=== PATIENT | female | born 1950 | race Caucasian/White ===

== ENCOUNTER 2018-06-05 12:51 | Inpatient (IN) | payer MEDICARE ==
[2018-06-04 19:00] VITALS: BP 162/88
[~2018-06-05] VITALS: Ht 152.4 cm; Wt 106.3 kg
[2018-06-05] VITALS (8 sets, daily range): BP systolic 131–180; BP diastolic 70–90
[2018-06-05] MEDS ORDERED: IV NORMAL SALINE 1000ML BAG 1,000 ML IV SCH (13:13)
--- NOTE | 2018-06-05 13:28 | PHYS DOC ---
Adult General Chief Complaint Chief Complaint: ALCOHOL INTOXICATION HPI HPI 68-year-old female presents via EMS from home after PD was sent to her home on a welfare check. Patient tells me normally she is able to ambulate with a walker but she has at home but she has become so weak she is unable to ambulate. She presents with stool on her hands and feet. She states has been on a one-month alcohol camarena after losing several family members. She reports history of alcoholism. She states has never had any seizures when coming off of alcohol. She is very tearful and states she has just had a lot going on and she has been drinking "way too much vodka". She denies any pain. She states having no chest pain or abdominal pain. She normally gets her medical care at [facility], the ambulance was unable to take her to that facility today. She is accompanied by her ex- whom lives with her at the house. Review of Systems Review of Systems Constitutional: Denies fever or chills [] Eyes: Denies change in visual acuity, redness, or eye pain [] HENT: Denies nasal congestion or sore throat [] Respiratory: Denies cough or shortness of breath [] Cardiovascular: No additional information not addressed in HPI [] GI: Denies abdominal pain, nausea, vomiting, bloody stools or diarrhea [] : Denies dysuria or hematuria [] Musculoskeletal: Denies back pain or joint pain [] Integument: Pain under her right breasT from rash Neurologic: Denies headache, focal weakness or sensory changes [] All other systems were reviewed and found to be within normal limits, except as documented in this note. Current Medications Current Medications Current Medications Medications (Trade) Dose Ordered Sig/Frannie Start Time Stop Time Status Last Admin Dose Admin Ceftriaxone Sodium 50 ml @ 100 mls/hr 1X ONCE 06/05/18 14:45 06/05/18 15:14 DC 06/05/18 14:49 100 MLS/HR Lorazepam (Ativan) 1 mg 1X ONCE 06/05/18 13:15 06/05/18 13:22 DC 06/05/18 13:24 1 MG Magnesium Sulfate 50 ml @ 25 mls/hr 1X ONCE 06/05/18 14:45 06/05/18 16:44 06/05/18 15:37 25 MLS/HR Ondansetron HCl (Zofran) 4 mg 1X ONCE 06/05/18 15:45 06/05/18 15:46 DC 06/05/18 15:40 4 MG Potassium Chloride (Klor-Con) 40 meq 1X ONCE 06/05/18 14:00 06/05/18 14:02 DC 06/05/18 14:49 40 MEQ Sodium Chloride 1,000 ml @ 1,000 mls/hr 1X ONCE 06/05/18 15:15 06/05/18 16:14 06/05/18 15:39 1,000 MLS/HR Allergies Allergies Allergies Coded Allergies Type Severity Reaction Last Updated Verified No Known Drug Allergies 06/05/18 No Physical Exam Physical Exam Constitutional: Well developed, well nourished, non-toxic appearance. [] HENT: Normocephalic, atraumatic, bilateral external ears normal, ORAL MUCOUS MEMBRANES DRY, no oral exudates, nose normal. [] Eyes: PERRLA, EOMI, conjunctiva normal, no discharge. [] Neck: Normal range of motion, no tenderness, supple, no stridor. [] Cardiovascular:Heart rate regular rhythm, TACHYCARDIA, NO MURMUR [] Lungs & Thorax: Bilateral breath sounds clear to auscultation [] Abdomen: Bowel sounds normal, soft, no tenderness, no masses. [] Skin: SKIN UNDER RT BREAST ERYTHEMATOUS, MOIST, CONSISTENT C YEAST (PT HAS BROWN SKIN LESION ON UNDERSIDE OF RT BREAST SHE STATES IS A MOLE THAT HAS BEEN CHECKED BY DERMATOLOGY AND NOT CANCEROUS). SKIN SUPRAPUBIC REGION IN PANUS IS ERYTHEMATOUS AND MOIST, FOUL SMELLING[] [] Extremities: No tenderness, no cyanosis, no clubbing, ROM intact, +2 PITTING EDEMA BILAT LE'S [] Neurologic: Alert and oriented X 3, normal motor function, normal sensory function, no focal deficits noted. [] Psychologic: TEARFUL, judgement normal, mood normal. [] Current Patient Data Vital Signs Vital Signs Date Time Temp Pulse Resp B/P (MAP) Pulse Ox O2 Delivery O2 Flow Rate FiO2 06/05/18 12:52 97.7 135 28 139/91 (107) 97 Room Air 97.7 Lab Values Laboratory Tests Test 06/05/18 13:03 06/05/18 13:45 White Blood Count 9.2 x10^3/uL (4.0-11.0) Red Blood Count 4.67 x10^6/uL (3.50-5.40) Hemoglobin 14.4 g/dL (12.0-15.5) Hematocrit 41.9 % (36.0-47.0) Mean Corpuscular Volume 90 fL (79-100) Mean Corpuscular Hemoglobin 31 pg (25-35) Mean Corpuscular Hemoglobin Concent 34 g/dL (31-37) Red Cell Distribution Width 17.2 % (11.5-14.5) H Platelet Count 223 x10^3/uL (140-400) Neutrophils (%) (Auto) 45 % (31-73) Lymphocytes (%) (Auto) 47 % (24-48) Monocytes (%) (Auto) 8 % (0-9) Eosinophils (%) (Auto) 1 % (0-3) Basophils (%) (Auto) 1 % (0-3) Neutrophils # (Auto) 4.1 x10^3uL (1.8-7.7) Lymphocytes # (Auto) 4.3 x10^3/uL (1.0-4.8) Monocytes # (Auto) 0.7 x10^3/uL (0.0-1.1) Eosinophils # (Auto) 0.1 x10^3/uL (0.0-0.7) Basophils # (Auto) 0.1 x10^3/uL (0.0-0.2) Prothrombin Time 12.9 SEC (11.7-14.0) Prothrombin Time INR 1.0 (0.8-1.1) Sodium Level 142 mmol/L (136-145) Potassium Level 3.0 mmol/L (3.5-5.1) L Chloride Level 102 mmol/L (98-107) Carbon Dioxide Level 21 mmol/L (21-32) Anion Gap 19 (6-14) H Blood Urea Nitrogen 6 mg/dL (7-20) L Creatinine 0.7 mg/dL (0.6-1.0) Estimated GFR (Cockcroft-Gault) 82.7 BUN/Creatinine Ratio 9 (6-20) Glucose Level 156 mg/dL (70-99) H Lactic Acid Level 5.9 mmol/L (0.4-2.0) *H Calcium Level 8.5 mg/dL (8.5-10.1) Magnesium Level 1.5 mg/dL (1.8-2.4) L Total Bilirubin 1.0 mg/dL (0.2-1.0) Aspartate Amino Transferase (AST) 102 U/L (15-37) H Alanine Aminotransferase (ALT) 85 U/L (14-59) H Alkaline Phosphatase 133 U/L (46-116) H Creatine Kinase 370 U/L (26-192) H Creatine Kinase MB (Mass) 7.4 ng/mL (0.0-3.6) H Creatine Kinase MB Relative Index 2.0 % (0-4) Troponin I Quantitative < 0.017 ng/mL (0.000-0.055) QD-Iou-O-Type Natriuretic Peptide 846 pg/mL (0-124) H Total Protein 8.3 g/dL (6.4-8.2) H Albumin 3.4 g/dL (3.4-5.0) Albumin/Globulin Ratio 0.7 (1.0-1.7) L Lipase 288 U/L (73-393) Ethyl Alcohol Level 230 mg/dL (0-10) H Urine Collection Type U cath Urine Color Dk yellow Urine Clarity Cloudy Urine pH 5.5 Urine Specific [place] 1.020 Urine Protein >=300 mg/dL (NEG-TRACE) Urine Glucose (UA) Negative mg/dL (NEG) Urine Ketones (Stick) Trace mg/dL (NEG) Urine Blood Moderate (NEG) Urine Nitrite Positive (NEG) Urine Bilirubin Small (NEG) Urine Urobilinogen Dipstick 1.0 mg/dL (0.2 mg/dL) Urine Leukocyte Esterase Small (NEG) Urine RBC Rare /HPF (0-2) Urine WBC 1-4 /HPF (0-4) Urine Squamous Epithelial Cells Few /LPF Urine Transitional Epithelial Cells Occ /LPF Urine Bacteria Many /HPF (0-FEW) Urine Hyaline Casts Few /HPF Urine Mucus Mod /LPF Laboratory Tests 06/05/18 13:03 Laboratory Tests 06/05/18 13:03 EKG EKG [06/05/18 rate 117, irregular rhythm, no P-wave, leftward axis right bundle branch block and RVH with repolarization abnormality. SIGNED BY DR BARRERA] Radiology/Procedures Radiology/Procedures [PROCEDURE: PORTABLE CHEST 1V PORTABLE CHEST 1V History: Tachycardia, weakness Comparison: None Findings: Single view of the chest is submitted. Pericardial cardiac silhouette is within normal limits in size. There is no pneumothorax or significant pleural fluid. There is a somewhat round opacity of the mid to inferior right hemithorax and fullness of the right hilum. There is atherosclerotic calcification near aortic arch. There are some clips of the left perihilar region. There is no lobar consolidation. Impression: 1. There is somewhat round opacity of the mid to inferior right hemithorax for which nonemergent CT evaluation should be considered, no previous exams to evaluate for change. There is also some fullness of the right hilum. Electronically signed by: Shubham Gayle MD (06/05/2018 1:40 PM) [id number] ] Course & Med Decision Making Course & Med Decision Making Pertinent Labs and Imaging studies reviewed. (See chart for details) [Patient continues to be tachycardic, she has been given 2 L of normal saline, I was notified by patient's RN that her O2 sats dropped down into the 80s, patient was placed on 2 L nasal cannula, subsequent O2 96% on 2 L. Hypomagnesemia was treated with 2 g of magnesium, hypokalemia was treated with 40 mEq of KCl. Patient is alert and oriented 3, urine is positive for infection , decision to admit patient for UTI, sepsis. Blood cultures are pending. Patient was given IV Rocephin. I discussed patient's case with Dr. CAMARA who accepts admit.] Dragon Disclaimer Dragon Disclaimer This electronic medical record was generated, in whole or in part, using a voice recognition dictation system. Departure Departure Impression: Primary Impression: UTI (urinary tract infection) Additional Impressions: Sepsis Hypomagnesemia Hypokalemia Hypoxia Disposition: 09 ADMITTED INPATIENT Admitting Physician: Alisson Camara Condition: STABLE Referrals: NO PCP (PCP) Problem Qualifiers MOON MANZANO GEAR CUTTING MACHINE SET UP OPERATOR Jun 05, 2018 13:28
[2018-06-05 13:36] LABS: BASO # 0.1 x10^3/uL (0.0-0.2); BASO % 1 % (0-3); EOS # 0.1 x10^3/uL (0.0-0.7); EOS % 1 % (0-3); HEMATOCRIT 41.9 % (36.0-47.0); HEMOGLOBIN 14.4 g/dL (12.0-15.5); LYMPH # 4.3 x10^3/uL (1.0-4.8); LYMPH % 47 % (24-48); MEAN CORPUSCULAR HEMOGLOBIN 31 pg (25-35); MEAN CORPUSCULAR HGB CONC 34 g/dL (31-37); MEAN CORPUSCULAR VOLUME 90 fL (79-100); MONO # 0.7 x10^3/uL (0.0-1.1); MONO % 8 % (0-9); NEUT # 4.1 x10^3uL (1.8-7.7); NEUT % 45 % (31-73); PLATELET COUNT 223 x10^3/uL (140-400); PROTHROMBIN TIME PATIENT 12.9 SEC (11.7-14.0); RED BLOOD COUNT 4.67 x10^6/uL (3.50-5.40); RED CELL DISTRIBUTION WIDTH 17.2 % (11.5-14.5); WHITE BLOOD COUNT 9.2 x10^3/uL (4.0-11.0)
[2018-06-05 13:43] LABS: ALBUMIN 3.4 g/dL (3.4-5.0); ALBUMIN/GLOBULIN RATIO 0.7 (1.0-1.7); CALCIUM 8.5 mg/dL (8.5-10.1); CREATININE 0.7 mg/dL (0.6-1.0); GFR 82.7; MAGNESIUM 1.5 mg/dL (1.8-2.4); TOTAL PROTEIN 8.3 g/dL (6.4-8.2)
--- NOTE | 2018-06-05 13:44 | RAD ---
PORTABLE CHEST 1V History: Tachycardia, weakness Comparison: None Findings: Single view of the chest is submitted. Pericardial cardiac silhouette is within normal limits in size. There is no pneumothorax or significant pleural fluid. There is a somewhat round opacity of the mid to inferior right hemithorax and fullness of the right hilum. There is atherosclerotic calcification near aortic arch. There are some clips of the left perihilar region. There is no lobar consolidation. Impression: 1. There is somewhat round opacity of the mid to inferior right hemithorax for which nonemergent CT evaluation should be considered, no previous exams to evaluate for change. There is also some fullness of the right hilum. Electronically signed by: Shubham Gayle MD (06/05/2018 1:40 PM) [id number]
[2018-06-05 13:56] LABS: BILIRUBIN,URINE SMALL (NEG); CLARITY,URINE CLOUDY; NITRITE,URINE POSITIVE (NEG); PH,URINE 5.5; PROTEIN,URINE >=300 mg/dL (NEG-TRACE)
[2018-06-05] MEDS ORDERED: POTASSIUM CHLORIDE 20 MEQ TABLET.ER. PO ONE ×2 (14:00→17:15)
[2018-06-05 14:01] LABS: COLOR,URINE DK YELLOW
[2018-06-05 14:04] LABS: BACTERIA,URINE MANY /HPF (0-FEW); HYALINE CASTS, URINE FEW /HPF; RBC,URINE RARE /HPF (0-2); SQUAMOUS EPITHELIAL CELL,UR FEW /LPF
[2018-06-05] MEDS ORDERED: MAGNESIUM SULFATE 2GM 50 ML IV ONE (14:45)
[2018-06-05] MEDS ORDERED: IV NORMAL SALINE 1000ML BAG 1,000 ML IV ONE (15:15)
[2018-06-05] MEDS ORDERED: ONDANSETRON PF 4 MG/2 ML VIAL. ONE (15:28)
[2018-06-05] MEDS ORDERED: ONDANSETRON PF 4 MG/2 ML VIAL. IV ONE (15:45)
--- NOTE | 2018-06-05 15:45 | EKG ---
[facility] [address] [place] [address] Test Date: 2018-06-05 Test Time: 12:57:34 Pat Name: ARNOLD SORENSON Department: Room: Gender: F Flight Dispatcher: ADRIENNE : [id number] Requested By: MOON MANZANO Order Number: [id number] Reading MD: Kayode Huitron Measurements Intervals [place] Rate: 117 P: IA: QRS: -14 QRSD: 128 T: -18 QT: 348 QTc: 490 Interpretive Statements ATRIAL FIBRILLATION LEFTWARD AXIS RIGHT BUNDLE BRANCH BLOCK QRS(T) CONTOUR ABNORMALITY CONSIDER ANTEROLATERAL MYOCARDIAL DAMAGE ABNORMAL ECG RI6.01 No previous ECG available for comparison Electronically Signed On 06-11-2018 10:13:15 CDT by Kayode Huitron
[2018-06-05] MEDS ORDERED: MULTIVIT INFUSN,ADULT 4,VIT K 10 ML, THIAMINE INJ 100 MG, FOLIC ACID INJ 1 MG in IV NOR... IV ONE (16:15)
--- NOTE | 2018-06-05 17:15 | PDOC1 ---
History and Physical Date of Admission Date of Admission DATE: 06/05/18 TIME: 17:04 Identification/Chief Complaint Chief Complaint cant walk Source Source: Chart review, Patient History of Present Illness History of Present Illness Ms. Cohen, 68-year-old female admitted for sepsis, confusion EMS was called today, started wtih a welfare check she could not walk, has been drinking EtOH daily for 30 days, and cannot get up, she reports she has been very anxious, and cannot stop drinking. Suddenly more weak today though, leg weakness, but she is also confused she lives with her Ex-, primary care is at [facility] Past Medical History Psych: Anxiety, Addictions Family History Family History: No Significant Social History ALCOHOL: heavy Current Problem List Problem List Problems Medical Problems: (1) Hypokalemia Status: Acute (2) Hypomagnesemia Status: Acute (3) Hypoxia Status: Acute (4) Sepsis Status: Acute (5) UTI (urinary tract infection) Status: Acute Current Medications Current Medications Current Medications Lorazepam (Ativan) 1 mg 1X ONCE IV Last administered on 06/05/18at 13:24; Start 06/05/18 at 13:15; Stop 06/05/18 at 13:22; Status DC Sodium Chloride 1,000 ml @ 1,000 mls/hr Q1H IV Last administered on 06/05/18at 13:23; Start 06/05/18 at 13:13; Stop 06/05/18 at 14:12; Status DC Potassium Chloride (Klor-Con) 40 meq 1X ONCE PO Last administered on at 14:49; Start 06/05/18 at 14:00; Stop 06/05/18 at 14:02; Status DC Ceftriaxone Sodium 50 ml @ 100 mls/hr 1X ONCE IV Last administered on at 14:49; Start 06/05/18 at 14:45; Stop 06/05/18 at 15:14; Status DC Magnesium Sulfate 50 ml @ 25 mls/hr 1X ONCE IV Last administered on 06/05/18at 15:37; Start 06/05/18 at 14:45; Stop 06/05/18 at 16:44; Status DC Sodium Chloride 1,000 ml @ 1,000 mls/hr 1X ONCE IV Last administered on at 15:39; Start 06/05/18 at 15:15; Stop 06/05/18 at 16:14; Status DC Ondansetron HCl (Zofran) 4 mg STK-MED ONCE .ROUTE ; Start 06/05/18 at 15:28; Stop 06/05/18 at 15:29; Status DC Ondansetron HCl (Zofran) 4 mg 1X ONCE IV Last administered on 06/05/18at 15:40 ; Start 06/05/18 at 15:45; Stop 06/05/18 at 15:46; Status DC Multivitamins 10 ml/Thiamine HCl 100 mg/Folic Acid 1 mg/Sodium Chloride 1,011.2 ml @ 1,000.088 mls/hr 1X ONCE IV Last administered on 06/05/18at 16:17; Start 06/05/18 at 16:15; Stop 06/05/18 at 17:15 Allergies Allergies: Coded Allergies: No Known Drug Allergies (Unverified , 06/05/18) ROS General: YES: Chills, Fatigue, Malaise, Appetite; No: Night Sweats, Other PSYCHOLOGICAL ROS: YES: Anxiety, Sleep disturbances Eyes: No Blurry vision, No Decreased vision, No Double vision, No Dry eyes, No Excessive tearing, No Eye Pain, No Itchy Eyes, No Loss of vision, No Photophobia , No Scotomata, No Uses contacts, No Uses glasses, No Other HEENT: YES: Heacaches; No: Visual Changes, Hearing change, Nasal congestion, Nasal discharge, Oral lesions, Sinus pain, Sore Throat, Epistaxis, Sneezing, Snoring, Tinnitus, Vertigo, Vocal changes, Other Respiratory: No: Cough, Hemoptysis, Orthopnea, Pleuritic Pain, Shortness of breath, SOB with excertion, Sputum Changes, Stridor, Tachypnea, Wheezing, Other Cardiovascular: No Chest Pain, No Palpitations, No Orthopnea, No Paroxysmal Noc. Dyspnea, No Edema, No Lt Headedness, No Other Gastrointestinal: Yes Nausea, Yes Vomiting, Yes Abdominal Pain Genitourinary: No Dysuria, No Frequency, No Incontinence, No Hematuria, No Retention, No Discharge, No Urgency, No Pain, No Flank Pain, No Other, No , No , No , No , No , No , No Musculoskeletal: Yes Joint Pain Neurological: No Behavorial Changes, No Bowel/Bladder ControlChng, No Confusion , No Dizziness, No Gait Disturbance, No Headaches, No Impaired Coord/balance, No Memory Loss, No Numbness/Tingling, No Seizures, No Speech Problems, No Tremors, No Visual Changes, No Weakness, No Other Skin: Yes Dry Skin; No Eczema, No Hair Changes, No Lumps, No Mole Changes, No Mottling, No Nail Changes, No Pruritus, No Rash, No Skin Lesion Changes, No Other, No Acne Physical Exam General: Alert, Cooperative, mild distress HEENT: Atraumatic Lungs: Clear to auscultation Heart: S1S2 Abdomen: Normal bowel sounds, Soft Extremities: No clubbing, No cyanosis, No edema, Normal pulses Neuro: Normal speech, Normal tone, Sensation intact Psych/Mental Status: Mood NL Vitals Vitals Vital Signs Date Time Temp Pulse Resp B/P (MAP) Pulse Ox O2 Delivery O2 Flow Rate FiO2 06/05/18 15:52 126 28 123/83 (96) 94 Nasal Cannula 2.0 06/05/18 12:52 97.7 97.7 Labs Labs Laboratory Tests Test 06/05/18 13:03 06/05/18 13:45 White Blood Count 9.2 x10^3/uL (4.0-11.0) Red Blood Count 4.67 x10^6/uL (3.50-5.40) Hemoglobin 14.4 g/dL (12.0-15.5) Hematocrit 41.9 % (36.0-47.0) Mean Corpuscular Volume 90 fL (79-100) Mean Corpuscular Hemoglobin 31 pg (25-35) Mean Corpuscular Hemoglobin Concent 34 g/dL (31-37) Red Cell Distribution Width 17.2 % (11.5-14.5) Platelet Count 223 x10^3/uL (140-400) Neutrophils (%) (Auto) 45 % (31-73) Lymphocytes (%) (Auto) 47 % (24-48) Monocytes (%) (Auto) 8 % (0-9) Eosinophils (%) (Auto) 1 % (0-3) Basophils (%) (Auto) 1 % (0-3) Neutrophils # (Auto) 4.1 x10^3uL (1.8-7.7) Lymphocytes # (Auto) 4.3 x10^3/uL (1.0-4.8) Monocytes # (Auto) 0.7 x10^3/uL (0.0-1.1) Eosinophils # (Auto) 0.1 x10^3/uL (0.0-0.7) Basophils # (Auto) 0.1 x10^3/uL (0.0-0.2) Prothrombin Time 12.9 SEC (11.7-14.0) Prothromb Time International Ratio 1.0 (0.8-1.1) Sodium Level 142 mmol/L (136-145) Potassium Level 3.0 mmol/L (3.5-5.1) Chloride Level 102 mmol/L (98-107) Carbon Dioxide Level 21 mmol/L (21-32) Anion Gap 19 (6-14) Blood Urea Nitrogen 6 mg/dL (7-20) Creatinine 0.7 mg/dL (0.6-1.0) Estimated GFR (Cockcroft-Gault) 82.7 BUN/Creatinine Ratio 9 (6-20) Glucose Level 156 mg/dL (70-99) Lactic Acid Level 5.9 mmol/L (0.4-2.0) Calcium Level 8.5 mg/dL (8.5-10.1) Magnesium Level 1.5 mg/dL (1.8-2.4) Total Bilirubin 1.0 mg/dL (0.2-1.0) Aspartate Amino Transf (AST/SGOT) 102 U/L (15-37) Alanine Aminotransferase (ALT/SGPT) 85 U/L (14-59) Alkaline Phosphatase 133 U/L (46-116) Creatine Kinase 370 U/L (26-192) Creatine Kinase MB (Mass) 7.4 ng/mL (0.0-3.6) Creatine Kinase MB Relative Index 2.0 % (0-4) Troponin I Quantitative < 0.017 ng/mL (0.000-0.055) XF-Rfm-Z-Type Natriuretic Peptide 846 pg/mL (0-124) Total Protein 8.3 g/dL (6.4-8.2) Albumin 3.4 g/dL (3.4-5.0) Albumin/Globulin Ratio 0.7 (1.0-1.7) Lipase 288 U/L (73-393) Ethyl Alcohol Level 230 mg/dL (0-10) Urine Collection Type U cath Urine Color Dk yellow Urine Clarity Cloudy Urine pH 5.5 Urine Specific [place] 1.020 Urine Protein >=300 mg/dL (NEG-TRACE) Urine Glucose (UA) Negative mg/dL (NEG) Urine Ketones (Stick) Trace mg/dL (NEG) Urine Blood Moderate (NEG) Urine Nitrite Positive (NEG) Urine Bilirubin Small (NEG) Urine Urobilinogen Dipstick 1.0 mg/dL (0.2 mg/dL) Urine Leukocyte Esterase Small (NEG) Urine RBC Rare /HPF (0-2) Urine WBC 1-4 /HPF (0-4) Urine Squamous Epithelial Cells Few /LPF Urine Transitional Epithelial Cells Occ /LPF Urine Bacteria Many /HPF (0-FEW) Urine Hyaline Casts Few /HPF Urine Mucus Mod /LPF Laboratory Tests Test 06/05/18 13:03 06/05/18 13:45 White Blood Count 9.2 x10^3/uL (4.0-11.0) Red Blood Count 4.67 x10^6/uL (3.50-5.40) Hemoglobin 14.4 g/dL (12.0-15.5) Hematocrit 41.9 % (36.0-47.0) Mean Corpuscular Volume 90 fL (79-100) Mean Corpuscular Hemoglobin 31 pg (25-35) Mean Corpuscular Hemoglobin Concent 34 g/dL (31-37) Red Cell Distribution Width 17.2 % (11.5-14.5) Platelet Count 223 x10^3/uL (140-400) Neutrophils (%) (Auto) 45 % (31-73) Lymphocytes (%) (Auto) 47 % (24-48) Monocytes (%) (Auto) 8 % (0-9) Eosinophils (%) (Auto) 1 % (0-3) Basophils (%) (Auto) 1 % (0-3) Neutrophils # (Auto) 4.1 x10^3uL (1.8-7.7) Lymphocytes # (Auto) 4.3 x10^3/uL (1.0-4.8) Monocytes # (Auto) 0.7 x10^3/uL (0.0-1.1) Eosinophils # (Auto) 0.1 x10^3/uL (0.0-0.7) Basophils # (Auto) 0.1 x10^3/uL (0.0-0.2) Prothrombin Time 12.9 SEC (11.7-14.0) Prothromb Time International Ratio 1.0 (0.8-1.1) Sodium Level 142 mmol/L (136-145) Potassium Level 3.0 mmol/L (3.5-5.1) Chloride Level 102 mmol/L (98-107) Carbon Dioxide Level 21 mmol/L (21-32) Anion Gap 19 (6-14) Blood Urea Nitrogen 6 mg/dL (7-20) Creatinine 0.7 mg/dL (0.6-1.0) Estimated GFR (Cockcroft-Gault) 82.7 BUN/Creatinine Ratio 9 (6-20) Glucose Level 156 mg/dL (70-99) Lactic Acid Level 5.9 mmol/L (0.4-2.0) Calcium Level 8.5 mg/dL (8.5-10.1) Magnesium Level 1.5 mg/dL (1.8-2.4) Total Bilirubin 1.0 mg/dL (0.2-1.0) Aspartate Amino Transf (AST/SGOT) 102 U/L (15-37) Alanine Aminotransferase (ALT/SGPT) 85 U/L (14-59) Alkaline Phosphatase 133 U/L (46-116) Creatine Kinase 370 U/L (26-192) Creatine Kinase MB (Mass) 7.4 ng/mL (0.0-3.6) Creatine Kinase MB Relative Index 2.0 % (0-4) Troponin I Quantitative < 0.017 ng/mL (0.000-0.055) ZO-Wtg-X-Type Natriuretic Peptide 846 pg/mL (0-124) Total Protein 8.3 g/dL (6.4-8.2) Albumin 3.4 g/dL (3.4-5.0) Albumin/Globulin Ratio 0.7 (1.0-1.7) Lipase 288 U/L (73-393) Ethyl Alcohol Level 230 mg/dL (0-10) Urine Collection Type U cath Urine Color Dk yellow Urine Clarity Cloudy Urine pH 5.5 Urine Specific [place] 1.020 Urine Protein >=300 mg/dL (NEG-TRACE) Urine Glucose (UA) Negative mg/dL (NEG) Urine Ketones (Stick) Trace mg/dL (NEG) Urine Blood Moderate (NEG) Urine Nitrite Positive (NEG) Urine Bilirubin Small (NEG) Urine Urobilinogen Dipstick 1.0 mg/dL (0.2 mg/dL) Urine Leukocyte Esterase Small (NEG) Urine RBC Rare /HPF (0-2) Urine WBC 1-4 /HPF (0-4) Urine Squamous Epithelial Cells Few /LPF Urine Transitional Epithelial Cells Occ /LPF Urine Bacteria Many /HPF (0-FEW) Urine Hyaline Casts Few /HPF Urine Mucus Mod /LPF VTE Prophylaxis Ordered VTE Prophylaxis Devices: No VTE Pharmacological Prophylaxi: Yes Assessment/Plan Assessment/Plan sepsis, severe sepsis UTI Acute EtOH intoxication, EtOH encephalopathy EtOH abuse, Banana bag, CIWS protocol hypokalemia obesity, BMI 39 admit from [facility] MARTINEZ MD Jun 05, 2018 17:15
[2018-06-05] MEDS ORDERED: ENOXAPARIN 40 MG/0.4 ML SYRINGE. SQ SCH (18:00)
[2018-06-05] MEDS ORDERED: METOPROLOL TARTRATE 5 MG/5 ML VIAL. IVP ONE (20:45)
[2018-06-05] MEDS: LORazepam 1 MG TABLET PO SCH (21:00)
[2018-06-05] MEDS: NYSTATIN TOPICAL POWDER 15GM BOTTLE. TP SCH (21:29)
[2018-06-05] MEDS: POTASSIUM CHLORIDE 10MEQ 100 ML IV SCH ×3 (21:30→23:51)
[2018-06-05] MEDS: IV NORMAL SALINE 1000ML BAG 1,000 ML IV SCH (21:32)
[2018-06-05] MEDS: METOPROLOL TARTRATE 5 MG/5 ML VIAL. IVP SCH (23:50)
[2018-06-06] VITALS (12 sets, daily range): BP systolic 121–157; BP diastolic 54–96
[2018-06-06] MEDS: POTASSIUM CHLORIDE 10MEQ 100 ML IV SCH (01:07)
[2018-06-06 05:03] LABS: BASO % 0 % (0-3); EOS % 0 % (0-3); HEMATOCRIT 34.8 % (36.0-47.0); HEMOGLOBIN 11.7 g/dL (12.0-15.5); LYMPH # 1.7 x10^3/uL (1.0-4.8); LYMPH % 22 % (24-48); MEAN CORPUSCULAR HEMOGLOBIN 31 pg (25-35); MEAN CORPUSCULAR HGB CONC 34 g/dL (31-37); MEAN CORPUSCULAR VOLUME 92 fL (79-100); MONO # 0.6 x10^3/uL (0.0-1.1); MONO % 7 % (0-9); NEUT # 5.5 x10^3uL (1.8-7.7); NEUT % 71 % (31-73); PLATELET COUNT 154 x10^3/uL (140-400); RED BLOOD COUNT 3.78 x10^6/uL (3.50-5.40); RED CELL DISTRIBUTION WIDTH 17.6 % (11.5-14.5); WHITE BLOOD COUNT 7.8 x10^3/uL (4.0-11.0)
[2018-06-06 05:12] LABS: PROTHROMBIN TIME PATIENT 14.3 SEC (11.7-14.0)
[2018-06-06 05:32] LABS: ALBUMIN 2.6 g/dL (3.4-5.0); ALBUMIN/GLOBULIN RATIO 0.7 (1.0-1.7); CALCIUM 7.1 mg/dL (8.5-10.1); CREATININE 0.5 mg/dL (0.6-1.0); TOTAL BILIRUBIN 0.7 mg/dL (0.2-1.0); TOTAL PROTEIN 6.6 g/dL (6.4-8.2)
[2018-06-06] MEDS: METOPROLOL TARTRATE 5 MG/5 ML VIAL. IVP SCH (06:10)
[2018-06-06] MEDS: IV NORMAL SALINE 1000ML BAG 1,000 ML IV SCH (06:18)
[2018-06-06] MEDS ORDERED: CALC500T30 PO (06:44)
[2018-06-06] MEDS ORDERED: FLUO10CA7 PO (06:44)
[2018-06-06] MEDS ORDERED: AMLO10TA6 PO (06:44)
[2018-06-06] MEDS ORDERED: MULT1TAB52 PO (06:44)
[2018-06-06] MEDS ORDERED: ATEN50TA PO (06:44)
[2018-06-06 07:51] LABS: MAGNESIUM 1.7 mg/dL (1.8-2.4); PHOSPHORUS 3.2 mg/dL (2.6-4.7)
[2018-06-06] MEDS: LORazepam 1 MG TABLET PO SCH ×2 (08:32→20:16)
[2018-06-06] MEDS: NYSTATIN TOPICAL POWDER 15GM BOTTLE. TP SCH ×2 (08:33→22:26)
--- NOTE | 2018-06-06 08:34 | PDOC ---
Provider Note Provider Note Pt seen ID consult dictated [id number] CRIS MOBLEY MD Jun 06, 2018 08:34
[2018-06-06] MEDS ORDERED: MAGNESIUM SULFATE 2GM 50 ML IV ONE (09:00)
[2018-06-06] MEDS ORDERED: FOLIC ACID 1 MG TABLET. PO SCH (09:00)
[2018-06-06] MEDS ORDERED: ENOXAPARIN 40 MG/0.4 ML SYRINGE. SQ SCH (09:00)
[2018-06-06] MEDS ORDERED: METOPROLOL TART IMMED RELEASE 25 MG TABLET. PO SCH (09:00)
[2018-06-06] MEDS ORDERED: MULTIVITAMIN with MINERAL TABLET. PO SCH (09:00)
--- NOTE | 2018-06-06 09:28 | CONS ---
DATE OF CONSULTATION: 06/06/2018 REFERRING PHYSICIAN: Dr. Marie. REASON FOR CONSULTATION: Sepsis. HISTORY OF PRESENT ILLNESS: A 68-year-old female admitted to ER when she was brought in by EMS and the patient could not walk. The patient has history of alcohol dependence and goes into binge drinking. She states that whenever there is a amongst her friends or family, she becomes very anxious and cannot stop drinking. She suddenly became weak, confused with decreased p.o. intake. She was brought in by EMS for the same. Her alcohol level as well elevated, lactate was elevated. White count was normal. She was given empiric Rocephin 1 dose. Chest x-ray showed somewhat round opacity at the mid to inferior right hemithorax, for which a CT should be considered. There is some fullness in the right hilum. The patient this morning feels better. She is a little anxious. Her temperature is 98 degrees. She denies any headache, nausea, vomiting, shortness of breath, cough, chest pain, diarrhea, abdominal pain, symptoms, burning pain, dysuria, rash, joint pain, history of fall. The patient has a Jack placed yesterday in the ER, which showed 1-4 wbc's, leukocyte esterase small. PAST MEDICAL HISTORY: EtOH dependence, anxiety addiction. FAMILY HISTORY: As per HPI. CURRENT MEDICATIONS: IV Rocephin. Other medications reviewed in medication list. ALLERGIES: No known drug allergies. REVIEW OF SYSTEMS: Anxiety, sleep problems. Had some headache, nausea, vomiting, abdominal pain, which has resolved. Some joint pain from underlying DJD and dry skin. PHYSICAL EXAMINATION: VITAL SIGNS: Temperature 98, pulse 116, blood pressure 139/95, oxygen saturation on 4 liters on nasal cannula. GENERAL: Alert, oriented patient, in mild distress, slightly anxious. HEENT: Normocephalic, atraumatic. Anicteric. Poor dentition. No thrush. Oral mucosa moist. NECK: Supple. LUNGS: Decreased breath sounds at the bases, otherwise clear. HEART: S1, S2, tachycardia. ABDOMEN: Soft, nontender, nondistended. Bowel sounds present. EXTREMITIES: No edema, no cyanosis, no clubbing. NEUROLOGIC: Alert and oriented x 3. Grossly nonfocal. PSYCHIATRIC: Slightly anxious, mood normal, cooperative. LABORATORY DATA: WBC 7.8, hemoglobin 11.7, hematocrit 34.8, platelets 154. Sodium 144, potassium 4.0, chloride 108, bicarbonate 24, BUN 7, creatinine 0.5, glucose 138. Lactate was 5.9, currently 8.8. Phosphorus 3.2, magnesium 1.7, AST 66, ALT 66, alkaline phosphatase 101. Lipase 288. Total protein 8.3. BNP 846. CK 370. UA shows 1-4 wbc's, small leukocyte esterase. EtOH is 230. IMAGING: Chest x-ray shows changes as above. IMPRESSION: 1. Lactic acidosis with sepsis. 2. Acute EtOH intoxication with EtOH encephalopathy. 3. Hypokalemia, hypomagnesemia. 4. Anxiety. 5. Nausea and vomiting, resolved. 6. Liver function test elevation from EtOH. 7. Borderline BNP and CK elevation. RECOMMENDATIONS: 1. Continue empiric Rocephin, will discontinue soon. Monitor for withdrawal symptoms closely. 2. Continue supportive care. 3. Maintain aspiration precautions. Thank you Dr. Marie for consulting Infectious Disease to participate in this patient's care. If you have any questions, do not hesitate to contact me. CRIS MOBLEY MD DR: TAMMY/jason JOB#: [id number] / [id number] LISA
--- NOTE | 2018-06-06 09:30 | EKG ---
[address] [place] [id number] Test Date: 2018-06-06 Test Time: 09:24:09 Pat Name: ARNOLD SORENSON Department: Room: 103 1 Gender: F Research Specialist: CARMEL : 1950 Requested By: HUGO JOHNSON Order Number: [id number] Reading MD: Kayode Huitron Measurements Intervals [place] Rate: 122 P: TN: QRS: 2 QRSD: 122 T: -19 QT: 332 QTc: 474 Interpretive Statements ATRIAL FIBRILLATION INCOMPLETE RIGHT BUNDLE BRANCH BLOCK ABNORMAL ECG RI6.01 No previous ECG available for comparison Electronically Signed On 06-11-2018 10:20:02 CDT by Kayode Huitron
[2018-06-06] MEDS: MULTIVIT INFUSN,ADULT 4,VIT K 10 ML, THIAMINE INJ 100 MG, FOLIC ACID INJ 1 MG in IV NOR... IV SCH (10:12)
[2018-06-06] MEDS: cefTRIAXone IV Push 1 GM VIAL. IVP SCH (10:13)
[2018-06-06] MEDS: LACTOBACILLUS RHAMNOSUS GG 1 CAPSULE. PO SCH ×2 (10:20→20:16)
--- NOTE | 2018-06-06 11:10 | PDOC2 ---
FLAKITA NOLEN DORR OPERATOR 06/06/18 1110: CARDIAC CONSULT DATE OF CONSULT Date of Consult DATE: 06/06/18 TIME: 10:47 REASON FOR CONSULT Reason for Consult: atrial fib REFERRING PHYSICIAN Referring Physician: Brooke SOURCE Source: Chart review, Patient HISTORY OF PRESENT ILLNESS HISTORY OF PRESENT ILLNESS 68 year old female admitted through the ER with sepsis, electrolyte imbalances, atrial fibrillation and ETOH intoxication after [employer] sent to home for welfare check. Patient admits to binge drinking associated with anxiety due to deaths in the family. EKG demonstrated atrial fibrillation with RVR in the setting of hypokalemia and hypomagnesemia which are being corrected. Lactate level was 5.9 POA. 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 left thoracotomy) FAMILY HISTORY Family History: Cancer, Heart Disease SOCIAL HISTORY Smoke: Quit (smoked X 20 years) ALCOHOL: other (binge drinking) Drugs: None CURRENT MEDICATIONS CURRENT MEDICATIONS Current Medications Medications (Trade) Dose Ordered Sig/Frannie Route PRN Reason Start Time Stop Time Status Last Admin Dose Admin Lorazepam (Ativan) 1 mg 1X ONCE IV 06/05/18 13:15 06/05/18 13:22 DC 06/05/18 13:24 Sodium Chloride 1,000 ml @ 1,000 mls/hr Q1H IV 06/05/18 13:13 06/05/18 14:12 DC 06/05/18 13:23 Potassium Chloride (Klor-Con) 40 meq 1X ONCE PO 06/05/18 14:00 06/05/18 14:02 DC 06/05/18 14:49 Ceftriaxone Sodium 50 ml @ 100 mls/hr 1X ONCE IV 06/05/18 14:45 06/05/18 15:14 DC 06/05/18 14:49 Magnesium Sulfate 50 ml @ 25 mls/hr 1X ONCE IV 06/05/18 14:45 06/05/18 16:44 DC 06/05/18 15:37 Sodium Chloride 1,000 ml @ 1,000 mls/hr 1X ONCE IV 06/05/18 15:15 06/05/18 16:14 DC 06/05/18 15:39 Ondansetron HCl (Zofran) 4 mg 1X ONCE IV 06/05/18 15:45 06/05/18 15:46 DC 06/05/18 15:40 Multivitamins 10 ml/Thiamine HCl 100 mg/Folic Acid 1 mg/Sodium Chloride 1,011.2 ml @ 1,000.088 mls/hr 1X ONCE IV 06/05/18 16:15 06/05/18 17:17 DC 06/05/18 16:17 Multivitamins (Thera M Plus) 1 tab DAILY PO 06/06/18 09:00 06/06/18 09:00 DC 06/06/18 08:32 Folic Acid (Folic Acid) 1 mg DAILY PO 06/06/18 09:00 06/06/18 09:00 DC 06/06/18 08:32 Lorazepam (Ativan) 2 mg PRN Q1HR PRN IV For CIWA 8-14 06/05/18 17:15 06/06/18 06:10 Lorazepam (Ativan) 1 mg BID PO 06/05/18 21:00 06/06/18 08:32 Enoxaparin Sodium (Lovenox 40mg Syringe) 40 mg Q24H SQ 06/05/18 18:00 06/06/18 07:44 DC 06/05/18 21:32 Potassium Chloride/Water 100 ml @ 100 mls/hr Q1H IV 06/05/18 21:00 06/06/18 00:59 DC 06/06/18 01:07 Metoprolol Tartrate (Lopressor Vial) 5 mg Q6HRS IVP 06/06/18 00:00 06/06/18 08:46 DC 06/06/18 06:10 Metoprolol Tartrate (Lopressor Vial) 5 mg 1X ONCE IVP 06/05/18 20:45 06/05/18 20:57 DC 06/05/18 21:29 Nystatin (Nystop) 1 eric BID TP 06/05/18 21:00 06/06/18 08:33 Sodium Chloride 1,000 ml @ 150 mls/hr Q6H40M IV 06/05/18 20:45 06/06/18 08:46 DC 06/06/18 06:18 Enoxaparin Sodium (Lovenox 40mg Syringe) 40 mg Q12HR SQ 06/06/18 09:00 06/06/18 08:33 Magnesium Sulfate 50 ml @ 25 mls/hr 1X ONCE IV 06/06/18 09:00 06/06/18 10:59 06/06/18 10:22 Multivitamins 10 ml/Thiamine HCl 100 mg/Folic Acid 1 mg/Sodium Chloride 1,011.2 ml @ 100 mls/ hr DAILY IV 06/06/18 09:00 06/06/18 10:12 Metoprolol Tartrate (Lopressor) 25 mg BID PO 06/06/18 09:00 06/06/18 10:18 Ceftriaxone Sodium (Rocephin) 1 gm Q24H IVP 06/06/18 09:00 06/06/18 10:13 Lactobacillus Rhamnosus (Culturelle) 1 cap BID PO 06/06/18 09:00 06/06/18 10:20 ALLERGIES ALLERGIES: Coded Allergies: No Known Drug Allergies (Unverified , 06/05/18) ROS General: YES: Fatigue PSYCHOLOGICAL ROS: YES: Anxiety Eyes: Yes Uses glasses HEENT: No: Heacaches, Visual Changes, Hearing change, Nasal congestion, Nasal discharge, Oral lesions, Sinus pain, Sore Throat, Epistaxis, Sneezing, Snoring, Tinnitus, Vertigo, Vocal changes, Other ALLERGY AND IMMUNOLOGY: No: Hives, Insect Bite Sensitivity, Itchy/Watery Eyes, Nasal Congestion, Post Nasal Drip, Seasonal Allergies, Other Hematological and Lymphatic: No: Bleeding Problems, Blood Clots, Blood Transfusions, Brusing, Night Sweats, Pallor, Swollen Lymph Nodes, Other ENDOCRINE: No: Breast Changes, Galactorrhea, Hair Pattern Changes, Hot Flashes , Malaise/lethargy, Mood Swings, Palpitations, Polydipsia/polyuria, Skin Changes , Temperature Intolerance, Unexpected Weight Changes, Other Respiratory: YES: SOB with excertion Cardiovascular: yes Palpitations Gastrointestinal: No Nausea, No Vomiting, No Abdominal Pain, No Diarrhea, No Constipation, No Melena, No Hematochezia, No Other Genitourinary: No Dysuria, No Frequency, No Incontinence, No Hematuria, No Retention, No Discharge, No Urgency, No Pain, No Flank Pain, No Other Musculoskeletal: Yes Joint Pain Neurological: No Behavorial Changes, No Bowel/Bladder ControlChng, No Confusion , No Dizziness, No Gait Disturbance, No Headaches, No Impaired Coord/balance, No Memory Loss, No Numbness/Tingling, No Seizures, No Speech Problems, No Tremors, No Visual Changes, No Weakness, No Other Skin: No Dry Skin, No Eczema, No Hair Changes, No Lumps, No Mole Changes, No Mottling, No Nail Changes, No Pruritus, No Rash, No Skin Lesion Changes, No Other, No Acne PHYSICAL EXAM General: Alert, Oriented X3, Cooperative, No acute distress HEENT: Atraumatic Lungs: Clear to auscultation Heart: Normal S1, Normal S2, Other (IRRR; tele: atrial fib) Abdomen: Soft Extremities: No edema Skin: No rashes Neuro: Normal speech Psych/Mental Status: Mental status NL, Mood NL MUSCULOSKELETAL: Osteoarthritic changes both hands VITALS VITALS Vital Signs Date Time Temp Pulse Resp B/P (MAP) Pulse Ox O2 Delivery O2 Flow Rate FiO2 06/06/18 10:18 112 121/79 06/06/18 08:00 Nasal Cannula 4.0 06/06/18 06:00 24 94 06/06/18 04:00 98.0 98.0 LABS Lab: Laboratory Tests Test 06/05/18 13:03 06/05/18 13:45 06/05/18 21:15 06/06/18 00:50 White Blood Count 9.2 x10^3/uL (4.0-11.0) Red Blood Count 4.67 x10^6/uL (3.50-5.40) Hemoglobin 14.4 g/dL (12.0-15.5) Hematocrit 41.9 % (36.0-47.0) Mean Corpuscular Volume 90 fL (79-100) Mean Corpuscular Hemoglobin 31 pg (25-35) Mean Corpuscular Hemoglobin Concent 34 g/dL (31-37) Red Cell Distribution Width 17.2 % (11.5-14.5) Platelet Count 223 x10^3/uL (140-400) Neutrophils (%) (Auto) 45 % (31-73) Lymphocytes (%) (Auto) 47 % (24-48) Monocytes (%) (Auto) 8 % (0-9) Eosinophils (%) (Auto) 1 % (0-3) Basophils (%) (Auto) 1 % (0-3) Neutrophils # (Auto) 4.1 x10^3uL (1.8-7.7) Lymphocytes # (Auto) 4.3 x10^3/uL (1.0-4.8) Monocytes # (Auto) 0.7 x10^3/uL (0.0-1.1) Eosinophils # (Auto) 0.1 x10^3/uL (0.0-0.7) Basophils # (Auto) 0.1 x10^3/uL (0.0-0.2) Prothrombin Time 12.9 SEC (11.7-14.0) Prothromb Time International Ratio 1.0 (0.8-1.1) Sodium Level 142 mmol/L (136-145) Potassium Level 3.0 mmol/L (3.5-5.1) Chloride Level 102 mmol/L (98-107) Carbon Dioxide Level 21 mmol/L (21-32) Anion Gap 19 (6-14) Blood Urea Nitrogen 6 mg/dL (7-20) Creatinine 0.7 mg/dL (0.6-1.0) Estimated GFR (Cockcroft-Gault) 82.7 BUN/Creatinine Ratio 9 (6-20) Glucose Level 156 mg/dL (70-99) Lactic Acid Level 5.9 mmol/L (0.4-2.0) 4.0 mmol/L (0.4-2.0) 0.8 mmol/L (0.4-2.0) Calcium Level 8.5 mg/dL (8.5-10.1) Magnesium Level 1.5 mg/dL (1.8-2.4) Total Bilirubin 1.0 mg/dL (0.2-1.0) Aspartate Amino Transf (AST/SGOT) 102 U/L (15-37) Alanine Aminotransferase (ALT/SGPT) 85 U/L (14-59) Alkaline Phosphatase 133 U/L (46-116) Creatine Kinase 370 U/L (26-192) Creatine Kinase MB (Mass) 7.4 ng/mL (0.0-3.6) Creatine Kinase MB Relative Index 2.0 % (0-4) Troponin I Quantitative < 0.017 ng/mL (0.000-0.055) DX-[id number]-Type Natriuretic Peptide 846 pg/mL (0-124) Total Protein 8.3 g/dL (6.4-8.2) Albumin 3.4 g/dL (3.4-5.0) Albumin/Globulin Ratio 0.7 (1.0-1.7) Lipase 288 U/L (73-393) Ethyl Alcohol Level 230 mg/dL (0-10) Urine Collection Type U cath Urine Color Dk yellow Urine Clarity Cloudy Urine pH 5.5 Urine Specific Cooper 1.020 Urine Protein >=300 mg/dL (NEG-TRACE) Urine Glucose (UA) Negative mg/dL (NEG) Urine Ketones (Stick) Trace mg/dL (NEG) Urine Blood Moderate (NEG) Urine Nitrite Positive (NEG) Urine Bilirubin Small (NEG) Urine Urobilinogen Dipstick 1.0 mg/dL (0.2 mg/dL) Urine Leukocyte Esterase Small (NEG) Urine RBC Rare /HPF (0-2) Urine WBC 1-4 /HPF (0-4) Urine Squamous Epithelial Cells Few /LPF Urine Transitional Epithelial Cells Occ /LPF Urine Bacteria Many /HPF (0-FEW) Urine Hyaline Casts Few /HPF Urine Mucus Mod /LPF Test 06/06/18 04:09 White Blood Count 7.8 x10^3/uL (4.0-11.0) Red Blood Count 3.78 x10^6/uL (3.50-5.40) Hemoglobin 11.7 g/dL (12.0-15.5) Hematocrit 34.8 % (36.0-47.0) Mean Corpuscular Volume 92 fL (79-100) Mean Corpuscular Hemoglobin 31 pg (25-35) Mean Corpuscular Hemoglobin Concent 34 g/dL (31-37) Red Cell Distribution Width 17.6 % (11.5-14.5) Platelet Count 154 x10^3/uL (140-400) Neutrophils (%) (Auto) 71 % (31-73) Lymphocytes (%) (Auto) 22 % (24-48) Monocytes (%) (Auto) 7 % (0-9) Eosinophils (%) (Auto) 0 % (0-3) Basophils (%) (Auto) 0 % (0-3) Neutrophils # (Auto) 5.5 x10^3uL (1.8-7.7) Lymphocytes # (Auto) 1.7 x10^3/uL (1.0-4.8) Monocytes # (Auto) 0.6 x10^3/uL (0.0-1.1) Eosinophils # (Auto) 0.0 x10^3/uL (0.0-0.7) Basophils # (Auto) 0.0 x10^3/uL (0.0-0.2) Prothrombin Time 14.3 SEC (11.7-14.0) Prothromb Time International Ratio 1.2 (0.8-1.1) Sodium Level 144 mmol/L (136-145) Potassium Level 4.0 mmol/L (3.5-5.1) Chloride Level 108 mmol/L (98-107) Carbon Dioxide Level 24 mmol/L (21-32) Anion Gap 12 (6-14) Blood Urea Nitrogen 7 mg/dL (7-20) Creatinine 0.5 mg/dL (0.6-1.0) Estimated GFR (Cockcroft-Gault) 122.0 BUN/Creatinine Ratio 14 (6-20) Glucose Level 138 mg/dL (70-99) Calcium Level 7.1 mg/dL (8.5-10.1) Phosphorus Level 3.2 mg/dL (2.6-4.7) Magnesium Level 1.7 mg/dL (1.8-2.4) Total Bilirubin 0.7 mg/dL (0.2-1.0) Aspartate Amino Transf (AST/SGOT) 66 U/L (15-37) Alanine Aminotransferase (ALT/SGPT) 66 U/L (14-59) Alkaline Phosphatase 101 U/L (46-116) Total Protein 6.6 g/dL (6.4-8.2) Albumin 2.6 g/dL (3.4-5.0) Albumin/Globulin Ratio 0.7 (1.0-1.7) IMAGES IMAGES CXR: Findings: Single view of the chest is submitted. Pericardial cardiac silhouette is within normal limits in size. There is no pneumothorax or significant pleural fluid. There is a somewhat round opacity of the mid to inferior right hemithorax and fullness of the right hilum. There is atherosclerotic calcification near aortic arch. There are some clips of the left perihilar region. There is no lobar consolidation. Impression: 1. There is somewhat round opacity of the mid to inferior right hemithorax for which nonemergent CT evaluation should be considered, no previous exams to evaluate for change. There is also some fullness of the right hilum. EKG EKG atrial fib with RVR; RBBB; no acute changes ECHOCARDIOGRAM ECHOCARDIOGRAM pending ASSESSMENT/PLAN ASSESSMENT/PLAN 1. atrial fibrillation with RVR; in setting of hypomagnesemia and hypokalemia --? new onset; history of palpitations --K and Mg being replaced; check TSH --TTE pending to evaluate for valvular disease --anticoagulation with therapeutic dosing of Lovenox; ? OAC in the setting of binge drinking and potential fall risk --increased metoprolol to Q8H for rate control 2. sepsis with UTI --defer to ID 3. ETOH intoxication with encephalopathy 4. HTN --control with oral meds 5. lipid status unknown --check FLP 6. history of CVA in 2002 affecting left side without residual effects IVANIA PALOMINO MD 06/06/18 1214: CARDIAC CONSULT ASSESSMENT/PLAN ASSESSMENT/PLAN Pt. seen and examined. AGree with above MECHANICAL UNIT REPAIRER note. 68 y.o woman presenting with afib in the setting of above comorbidities. No significant HF by exam. Allow for detox and check echo. Rate control and given stroke history would strongly recommend anticoagulation. Discussed with family. Await their decision. She would need to refrain from alcohol and likely needs good committment from family or be placed in rehab. Thanks. Will follow along. FLAKITA NOLEN APRN Jun 06, 2018 11:10 IVANIA PALOMINO MD Jun 06, 2018 12:14
--- NOTE | 2018-06-06 12:01 | RAD ---
CT of the chest without contrast, 06/06/2018: HISTORY: Abnormal chest x-ray, weakness Noncontrast scans were obtained. The patient is rotated to the right. There is moderate calcific plaquing of the thoracic aorta and its branches including the coronary arteries. The heart is mildly enlarged. No mediastinal adenopathy is seen. Mild infiltrate is present posteriorly in both the right upper and lower lobes. There is pleural thickening on the right with a probable trace amount of right-sided pleural fluid. There is a pleural calcification in the right upper chest related to what appears to be an old rib fracture. There are linear opacities in the left lower chest compatible scarring and/or atelectasis. Several parenchymal calcifications are present in the superior segment of the left lower lobe. No left-sided pleural fluid is evident. There is fatty infiltration the liver. Streak artifacts arising from the patient's arms obscure portions of the liver. There is a radiopacity along the posterior wall of the gallbladder suggesting a calculus versus a mural calcification. There is a 4 cm left upper quadrant abdominal mass which is probably of adrenal origin. Moderate multilevel degenerative changes are present in the spine. An old healed sternal fracture is noted.There is an old appearing vertebral compression fracture at approximately the L1 level. IMPRESSION: 1. Mild infiltrate posteriorly in the right upper and lower lobes suggesting pneumonia. 2. Trace amount of right-sided pleural fluid. 3. Bilateral pleural-parenchymal scarring. 4. Cardiomegaly with calcific plaquing of the aorta and coronary arteries. 5. Hepatic steatosis. 6. Left adrenal mass. 7. Possible cholelithiasis PQRS Compliance Statement: One or more of the following individualized dose reduction techniques were utilized for this examination: 1. Automated exposure control 2. Adjustment of the mA and/or kV according to patient size 3. Use of iterative reconstruction technique Electronically signed by: Fausto Curtis MD (06/06/2018 11:57 AM) [facility]
--- NOTE | 2018-06-06 13:27 | PDOC ---
PROGRESS NOTES Chief Complaint Chief Complaint AMS, metabolic encephalopathy Acute EtOH intoxication, EtOH encephalopathy possible UTI and CAP possible sepsis lactate acidosis dehydration rapid AFIB h/o stroke wo neuroligic deficit hypomagnesemia hypokalemia obesity, BMI 39 generalized weakness left adrenal mass fu with pcp plan: card, id consulted cont ceftriaxone for now CT chest done showed possible pna add metoprolol 25mg, increase to tid as per card echo banana bag daily advance diet as tolerated repeat labs tmr, mag, catrina PTOT dvt ppx addASA 325MG PO daily for now for afib, may need fully AC ok transfer out of ICU, talked to nurse History of Present Illness History of Present Illness FEELS better, LA DROP TO 0.8 still very weak, rapid afib overnight heavy drinking for 1m, willing to stop after i talked to her Vitals Vitals Vital Signs Date Time Temp Pulse Resp B/P (MAP) Pulse Ox O2 Delivery O2 Flow Rate FiO2 06/06/18 11:00 98.7 108 24 135/54 (81) 94 Nasal Cannula 4.0 98.7 Physical Exam General: Alert, Oriented X3, Cooperative, No acute distress Heart: Normal S1, Normal S2, Other (IRRR; tele: atrial fib) Lungs: Clear Abdomen: Normal bowel sounds, Soft, No tenderness Extremities: No edema Skin: No rashes Labs LABS Laboratory Tests Test 06/05/18 13:45 06/05/18 21:15 06/06/18 00:50 06/06/18 04:09 Urine Collection Type U cath Urine Color Dk yellow Urine Clarity Cloudy Urine pH 5.5 Urine Specific [place] 1.020 Urine Protein >=300 mg/dL (NEG-TRACE) Urine Glucose (UA) Negative mg/dL (NEG) Urine Ketones (Stick) Trace mg/dL (NEG) Urine Blood Moderate (NEG) Urine Nitrite Positive (NEG) Urine Bilirubin Small (NEG) Urine Urobilinogen Dipstick 1.0 mg/dL (0.2 mg/dL) Urine Leukocyte Esterase Small (NEG) Urine RBC Rare /HPF (0-2) Urine WBC 1-4 /HPF (0-4) Urine Squamous Epithelial Cells Few /LPF Urine Transitional Epithelial Cells Occ /LPF Urine Bacteria Many /HPF (0-FEW) Urine Hyaline Casts Few /HPF Urine Mucus Mod /LPF Lactic Acid Level 4.0 mmol/L (0.4-2.0) 0.8 mmol/L (0.4-2.0) White Blood Count 7.8 x10^3/uL (4.0-11.0) Red Blood Count 3.78 x10^6/uL (3.50-5.40) Hemoglobin 11.7 g/dL (12.0-15.5) Hematocrit 34.8 % (36.0-47.0) Mean Corpuscular Volume 92 fL (79-100) Mean Corpuscular Hemoglobin 31 pg (25-35) Mean Corpuscular Hemoglobin Concent 34 g/dL (31-37) Red Cell Distribution Width 17.6 % (11.5-14.5) Platelet Count 154 x10^3/uL (140-400) Neutrophils (%) (Auto) 71 % (31-73) Lymphocytes (%) (Auto) 22 % (24-48) Monocytes (%) (Auto) 7 % (0-9) Eosinophils (%) (Auto) 0 % (0-3) Basophils (%) (Auto) 0 % (0-3) Neutrophils # (Auto) 5.5 x10^3uL (1.8-7.7) Lymphocytes # (Auto) 1.7 x10^3/uL (1.0-4.8) Monocytes # (Auto) 0.6 x10^3/uL (0.0-1.1) Eosinophils # (Auto) 0.0 x10^3/uL (0.0-0.7) Basophils # (Auto) 0.0 x10^3/uL (0.0-0.2) Prothrombin Time 14.3 SEC (11.7-14.0) Prothromb Time International Ratio 1.2 (0.8-1.1) Sodium Level 144 mmol/L (136-145) Potassium Level 4.0 mmol/L (3.5-5.1) Chloride Level 108 mmol/L (98-107) Carbon Dioxide Level 24 mmol/L (21-32) Anion Gap 12 (6-14) Blood Urea Nitrogen 7 mg/dL (7-20) Creatinine 0.5 mg/dL (0.6-1.0) Estimated GFR (Cockcroft-Gault) 122.0 BUN/Creatinine Ratio 14 (6-20) Glucose Level 138 mg/dL (70-99) Calcium Level 7.1 mg/dL (8.5-10.1) Phosphorus Level 3.2 mg/dL (2.6-4.7) Magnesium Level 1.7 mg/dL (1.8-2.4) Total Bilirubin 0.7 mg/dL (0.2-1.0) Aspartate Amino Transf (AST/SGOT) 66 U/L (15-37) Alanine Aminotransferase (ALT/SGPT) 66 U/L (14-59) Alkaline Phosphatase 101 U/L (46-116) Total Protein 6.6 g/dL (6.4-8.2) Albumin 2.6 g/dL (3.4-5.0) Albumin/Globulin Ratio 0.7 (1.0-1.7) Thyroid Stimulating Hormone (TSH) 1.754 uIU/mL (0.358-3.74) Assessment and Plan Assessmemt and Plan Problems Medical Problems: (1) Hypokalemia Status: Acute (2) Hypomagnesemia Status: Acute (3) Hypoxia Status: Acute (4) Sepsis Status: Acute (5) UTI (urinary tract infection) Status: Acute Comment Review of Relevant I have reviewed the following items caro (where applicable) has been applied. Labs Laboratory Tests Test 06/05/18 13:03 06/05/18 13:45 06/05/18 21:15 06/06/18 00:50 White Blood Count 9.2 x10^3/uL (4.0-11.0) Red Blood Count 4.67 x10^6/uL (3.50-5.40) Hemoglobin 14.4 g/dL (12.0-15.5) Hematocrit 41.9 % (36.0-47.0) Mean Corpuscular Volume 90 fL (79-100) Mean Corpuscular Hemoglobin 31 pg (25-35) Mean Corpuscular Hemoglobin Concent 34 g/dL (31-37) Red Cell Distribution Width 17.2 % (11.5-14.5) Platelet Count 223 x10^3/uL (140-400) Neutrophils (%) (Auto) 45 % (31-73) Lymphocytes (%) (Auto) 47 % (24-48) Monocytes (%) (Auto) 8 % (0-9) Eosinophils (%) (Auto) 1 % (0-3) Basophils (%) (Auto) 1 % (0-3) Neutrophils # (Auto) 4.1 x10^3uL (1.8-7.7) Lymphocytes # (Auto) 4.3 x10^3/uL (1.0-4.8) Monocytes # (Auto) 0.7 x10^3/uL (0.0-1.1) Eosinophils # (Auto) 0.1 x10^3/uL (0.0-0.7) Basophils # (Auto) 0.1 x10^3/uL (0.0-0.2) Prothrombin Time 12.9 SEC (11.7-14.0) Prothromb Time International Ratio 1.0 (0.8-1.1) Sodium Level 142 mmol/L (136-145) Potassium Level 3.0 mmol/L (3.5-5.1) Chloride Level 102 mmol/L (98-107) Carbon Dioxide Level 21 mmol/L (21-32) Anion Gap 19 (6-14) Blood Urea Nitrogen 6 mg/dL (7-20) Creatinine 0.7 mg/dL (0.6-1.0) Estimated GFR (Cockcroft-Gault) 82.7 BUN/Creatinine Ratio 9 (6-20) Glucose Level 156 mg/dL (70-99) Lactic Acid Level 5.9 mmol/L (0.4-2.0) 4.0 mmol/L (0.4-2.0) 0.8 mmol/L (0.4-2.0) Calcium Level 8.5 mg/dL (8.5-10.1) Magnesium Level 1.5 mg/dL (1.8-2.4) Total Bilirubin 1.0 mg/dL (0.2-1.0) Aspartate Amino Transf (AST/SGOT) 102 U/L (15-37) Alanine Aminotransferase (ALT/SGPT) 85 U/L (14-59) Alkaline Phosphatase 133 U/L (46-116) Creatine Kinase 370 U/L (26-192) Creatine Kinase MB (Mass) 7.4 ng/mL (0.0-3.6) Creatine Kinase MB Relative Index 2.0 % (0-4) Troponin I Quantitative < 0.017 ng/mL (0.000-0.055) HM-Qhz-Q-Type Natriuretic Peptide 846 pg/mL (0-124) Total Protein 8.3 g/dL (6.4-8.2) Albumin 3.4 g/dL (3.4-5.0) Albumin/Globulin Ratio 0.7 (1.0-1.7) Lipase 288 U/L (73-393) Ethyl Alcohol Level 230 mg/dL (0-10) Urine Collection Type U cath Urine Color Dk yellow Urine Clarity Cloudy Urine pH 5.5 Urine Specific [place] 1.020 Urine Protein >=300 mg/dL (NEG-TRACE) Urine Glucose (UA) Negative mg/dL (NEG) Urine Ketones (Stick) Trace mg/dL (NEG) Urine Blood Moderate (NEG) Urine Nitrite Positive (NEG) Urine Bilirubin Small (NEG) Urine Urobilinogen Dipstick 1.0 mg/dL (0.2 mg/dL) Urine Leukocyte Esterase Small (NEG) Urine RBC Rare /HPF (0-2) Urine WBC 1-4 /HPF (0-4) Urine Squamous Epithelial Cells Few /LPF Urine Transitional Epithelial Cells Occ /LPF Urine Bacteria Many /HPF (0-FEW) Urine Hyaline Casts Few /HPF Urine Mucus Mod /LPF Test 06/06/18 04:09 White Blood Count 7.8 x10^3/uL (4.0-11.0) Red Blood Count 3.78 x10^6/uL (3.50-5.40) Hemoglobin 11.7 g/dL (12.0-15.5) Hematocrit 34.8 % (36.0-47.0) Mean Corpuscular Volume 92 fL (79-100) Mean Corpuscular Hemoglobin 31 pg (25-35) Mean Corpuscular Hemoglobin Concent 34 g/dL (31-37) Red Cell Distribution Width 17.6 % (11.5-14.5) Platelet Count 154 x10^3/uL (140-400) Neutrophils (%) (Auto) 71 % (31-73) Lymphocytes (%) (Auto) 22 % (24-48) Monocytes (%) (Auto) 7 % (0-9) Eosinophils (%) (Auto) 0 % (0-3) Basophils (%) (Auto) 0 % (0-3) Neutrophils # (Auto) 5.5 x10^3uL (1.8-7.7) Lymphocytes # (Auto) 1.7 x10^3/uL (1.0-4.8) Monocytes # (Auto) 0.6 x10^3/uL (0.0-1.1) Eosinophils # (Auto) 0.0 x10^3/uL (0.0-0.7) Basophils # (Auto) 0.0 x10^3/uL (0.0-0.2) Prothrombin Time 14.3 SEC (11.7-14.0) Prothromb Time International Ratio 1.2 (0.8-1.1) Sodium Level 144 mmol/L (136-145) Potassium Level 4.0 mmol/L (3.5-5.1) Chloride Level 108 mmol/L (98-107) Carbon Dioxide Level 24 mmol/L (21-32) Anion Gap 12 (6-14) Blood Urea Nitrogen 7 mg/dL (7-20) Creatinine 0.5 mg/dL (0.6-1.0) Estimated GFR (Cockcroft-Gault) 122.0 BUN/Creatinine Ratio 14 (6-20) Glucose Level 138 mg/dL (70-99) Calcium Level 7.1 mg/dL (8.5-10.1) Phosphorus Level 3.2 mg/dL (2.6-4.7) Magnesium Level 1.7 mg/dL (1.8-2.4) Total Bilirubin 0.7 mg/dL (0.2-1.0) Aspartate Amino Transf (AST/SGOT) 66 U/L (15-37) Alanine Aminotransferase (ALT/SGPT) 66 U/L (14-59) Alkaline Phosphatase 101 U/L (46-116) Total Protein 6.6 g/dL (6.4-8.2) Albumin 2.6 g/dL (3.4-5.0) Albumin/Globulin Ratio 0.7 (1.0-1.7) Thyroid Stimulating Hormone (TSH) 1.754 uIU/mL (0.358-3.74) Laboratory Tests Test 06/05/18 13:45 06/05/18 21:15 06/06/18 00:50 06/06/18 04:09 Urine Collection Type U cath Urine Color Dk yellow Urine Clarity Cloudy Urine pH 5.5 Urine Specific [place] 1.020 Urine Protein >=300 mg/dL (NEG-TRACE) Urine Glucose (UA) Negative mg/dL (NEG) Urine Ketones (Stick) Trace mg/dL (NEG) Urine Blood Moderate (NEG) Urine Nitrite Positive (NEG) Urine Bilirubin Small (NEG) Urine Urobilinogen Dipstick 1.0 mg/dL (0.2 mg/dL) Urine Leukocyte Esterase Small (NEG) Urine RBC Rare /HPF (0-2) Urine WBC 1-4 /HPF (0-4) Urine Squamous Epithelial Cells Few /LPF Urine Transitional Epithelial Cells Occ /LPF Urine Bacteria Many /HPF (0-FEW) Urine Hyaline Casts Few /HPF Urine Mucus Mod /LPF Lactic Acid Level 4.0 mmol/L (0.4-2.0) 0.8 mmol/L (0.4-2.0) White Blood Count 7.8 x10^3/uL (4.0-11.0) Red Blood Count 3.78 x10^6/uL (3.50-5.40) Hemoglobin 11.7 g/dL (12.0-15.5) Hematocrit 34.8 % (36.0-47.0) Mean Corpuscular Volume 92 fL (79-100) Mean Corpuscular Hemoglobin 31 pg (25-35) Mean Corpuscular Hemoglobin Concent 34 g/dL (31-37) Red Cell Distribution Width 17.6 % (11.5-14.5) Platelet Count 154 x10^3/uL (140-400) Neutrophils (%) (Auto) 71 % (31-73) Lymphocytes (%) (Auto) 22 % (24-48) Monocytes (%) (Auto) 7 % (0-9) Eosinophils (%) (Auto) 0 % (0-3) Basophils (%) (Auto) 0 % (0-3) Neutrophils # (Auto) 5.5 x10^3uL (1.8-7.7) Lymphocytes # (Auto) 1.7 x10^3/uL (1.0-4.8) Monocytes # (Auto) 0.6 x10^3/uL (0.0-1.1) Eosinophils # (Auto) 0.0 x10^3/uL (0.0-0.7) Basophils # (Auto) 0.0 x10^3/uL (0.0-0.2) Prothrombin Time 14.3 SEC (11.7-14.0) Prothromb Time International Ratio 1.2 (0.8-1.1) Sodium Level 144 mmol/L (136-145) Potassium Level 4.0 mmol/L (3.5-5.1) Chloride Level 108 mmol/L (98-107) Carbon Dioxide Level 24 mmol/L (21-32) Anion Gap 12 (6-14) Blood Urea Nitrogen 7 mg/dL (7-20) Creatinine 0.5 mg/dL (0.6-1.0) Estimated GFR (Cockcroft-Gault) 122.0 BUN/Creatinine Ratio 14 (6-20) Glucose Level 138 mg/dL (70-99) Calcium Level 7.1 mg/dL (8.5-10.1) Phosphorus Level 3.2 mg/dL (2.6-4.7) Magnesium Level 1.7 mg/dL (1.8-2.4) Total Bilirubin 0.7 mg/dL (0.2-1.0) Aspartate Amino Transf (AST/SGOT) 66 U/L (15-37) Alanine Aminotransferase (ALT/SGPT) 66 U/L (14-59) Alkaline Phosphatase 101 U/L (46-116) Total Protein 6.6 g/dL (6.4-8.2) Albumin 2.6 g/dL (3.4-5.0) Albumin/Globulin Ratio 0.7 (1.0-1.7) Thyroid Stimulating Hormone (TSH) 1.754 uIU/mL (0.358-3.74) Medications Current Medications Lorazepam (Ativan) 1 mg 1X ONCE IV Last administered on 06/05/18at 13:24; Start 06/05/18 at 13:15; Stop 06/05/18 at 13:22; Status DC Sodium Chloride 1,000 ml @ 1,000 mls/hr Q1H IV Last administered on 06/05/18at 13:23; Start 06/05/18 at 13:13; Stop 06/05/18 at 14:12; Status DC Potassium Chloride (Klor-Con) 40 meq 1X ONCE PO Last administered on at 14:49; Start 06/05/18 at 14:00; Stop 9/19/18 at 14:02; Status DC Ceftriaxone Sodium 50 ml @ 100 mls/hr 1X ONCE IV Last administered on at 14:49; Start 06/05/18 at 14:45; Stop 06/05/18 at 15:14; Status DC Magnesium Sulfate 50 ml @ 25 mls/hr 1X ONCE IV Last administered on 06/05/18at 15:37; Start 06/05/18 at 14:45; Stop 06/05/18 at 16:44; Status DC Sodium Chloride 1,000 ml @ 1,000 mls/hr 1X ONCE IV Last administered on at 15:39; Start 06/05/18 at 15:15; Stop 06/05/18 at 16:14; Status DC Ondansetron HCl (Zofran) 4 mg STK-MED ONCE .ROUTE ; Start 06/05/18 at 15:28; Stop 06/05/18 at 15:29; Status DC Ondansetron HCl (Zofran) 4 mg 1X ONCE IV Last administered on 06/05/18at 15:40 ; Start 06/05/18 at 15:45; Stop 06/05/18 at 15:46; Status DC Multivitamins 10 ml/Thiamine HCl 100 mg/Folic Acid 1 mg/Sodium Chloride 1,011.2 ml @ 1,000.088 mls/hr 1X ONCE IV Last administered on 06/05/18at 16:17; Start 06/05/18 at 16:15; Stop 06/05/18 at 17:17; Status DC Multivitamins (Thera M Plus) 1 tab DAILY PO Last administered on 06/06/18at 08: 32; Start 06/06/18 at 09:00; Stop 06/06/18 at 09:00; Status DC Folic Acid (Folic Acid) 1 mg DAILY PO Last administered on 06/06/18at 08:32; Start 06/06/18 at 09:00; Stop 06/06/18 at 09:00; Status DC Lorazepam (Ativan) 2 mg PRN Q1HR PRN IV For CIWA 8-14 Last administered on 06/06at 06:10; Start 06/05/18 at 17:15 Lorazepam (Ativan) 4 mg PRN Q1HR PRN IV For CIWA 15 or greater; Start 06/05/18 at 17:15 Lorazepam (Ativan) 1 mg BID PO Last administered on 06/06/18at 08:32; Start at 21:00 Enoxaparin Sodium (Lovenox Per Pharmacy Prophylaxis Dosing) 1 each PRN DAILY PRN MC SEE COMMENTS; Start 06/05/18 at 17:15 Potassium Chloride (Klor-Con) 40 meq 1X ONCE PO ; Start 06/05/18 at 17:15; Stop 06/05/18 at 17:17; Status DC Enoxaparin Sodium (Lovenox 40mg Syringe) 40 mg Q24H SQ Last administered on at 21:32; Start 06/05/18 at 18:00; Stop 06/06/18 at 07:44; Status DC Potassium Chloride/Water 100 ml @ 100 mls/hr Q1H IV Last administered on at 01:07; Start 06/05/18 at 21:00; Stop 06/06/18 at 00:59; Status DC Metoprolol Tartrate (Lopressor Vial) 5 mg Q6HRS IVP Last administered on at 06:10; Start 06/06/18 at 00:00; Stop 06/06/18 at 08:46; Status DC Metoprolol Tartrate (Lopressor Vial) 5 mg 1X ONCE IVP Last administered on at 21:29; Start 06/05/18 at 20:45; Stop 06/05/18 at 20:57; Status DC Nystatin (Nystop) 1 eric BID TP Last administered on 06/06/18at 08:33; Start at 21:00 Sodium Chloride 1,000 ml @ 150 mls/hr Q6H40M IV Last administered on at 06:18; Start 06/05/18 at 20:45; Stop 06/06/18 at 08:46; Status DC Enoxaparin Sodium (Lovenox 40mg Syringe) 40 mg Q12HR SQ Last administered on at 08:33; Start 06/06/18 at 09:00 Ceftriaxone Sodium 1 gm/ Dextrose 50 ml @ 100 mls/hr Q24H IV ; Start 06/06/18 at 08:45; Status UNV Magnesium Sulfate 50 ml @ 25 mls/hr 1X ONCE IV Last administered on 06/06/18at 10:22; Start 06/06/18 at 09:00; Stop 06/06/18 at 10:59; Status DC Multivitamins 10 ml/Thiamine HCl 100 mg/Folic Acid 1 mg/Sodium Chloride 1,011.2 ml @ 100 mls/ hr DAILY IV Last administered on 06/06/18at 10:12; Start at 09:00 Metoprolol Tartrate (Lopressor) 25 mg BID PO Last administered on 06/06/18at 10: 18; Start 06/06/18 at 09:00; Stop 06/06/18 at 11:03; Status DC Ceftriaxone Sodium (Rocephin) 1 gm Q24H IVP Last administered on 06/06/18at 10: 13; Start 06/06/18 at 09:00 Lactobacillus Rhamnosus (Culturelle) 1 cap BID PO Last administered on at 10:20; Start 06/06/18 at 09:00 Folic Acid (Folic Acid) 1 mg DAILY PO ; Start 06/11/18 at 09:00 Multivitamins (Thera M Plus) 1 tab DAILY PO ; Start 06/11/18 at 09:00 Metoprolol Tartrate (Lopressor) 25 mg Q8HRS PO ; Start 06/06/18 at 14:00 Active Scripts Active Reported Multivitamins (Multivitamin) 1 Each Tablet Unknown Dose PO DAILY Calcium (Calcium Carbonate) 500 Mg Tablet 500 Mg PO Fluoxetine Hcl 10 Mg Capsule 1 Cap PO DAILY Amlodipine Besylate 10 Mg Tablet 10 Mg PO DAILY Atenolol 50 Mg Tablet 1 Tab PO DAILY Vitals/I & O Vital Sign - Last 24 Hours 06/05/18 06/05/18 06/05/18 06/05/18 13:52 14:22 14:52 15:22 Pulse 114 116 120 128 Resp 28 24 24 28 B/P (MAP) 138/81 (100) 137/83 (101) 137/80 (99) 146/88 (107) Pulse Ox 94 92 92 94 06/05/18 06/05/18 06/05/18 06/05/18 15:52 16:22 16:52 17:22 Pulse 126 140 124 128 Resp 28 26 24 24 B/P (MAP) 123/83 (96) 137/101 (113) 148/89 (108) 121/77 (92) Pulse Ox 94 94 92 94 O2 Delivery Nasal Cannula Nasal Cannula O2 Flow Rate 2.0 2.0 06/05/18 06/05/18 06/05/18 06/05/18 19:00 19:15 19:30 19:45 Temp 98.7 98.7 Pulse 134 136 130 130 Resp 28 26 36 30 B/P (MAP) 162/88 (112) 164/72 (102) 180/86 (117) 153/83 (106) Pulse Ox 93 92 88 94 O2 Delivery Nasal Cannula Nasal Cannula Nasal Cannula Nasal Cannula O2 Flow Rate 2.0 2.0 4.0 4.0 06/05/18 06/05/18 06/05/18 06/05/18 20:00 20:00 21:00 21:29 Pulse 134 136 150 Resp 26 24 B/P (MAP) 141/70 (93) 131/82 (98) 149/80 Pulse Ox 95 96 O2 Delivery Nasal Cannula Nasal Cannula Nasal Cannula O2 Flow Rate 2.0 4.0 4.0 06/05/18 06/05/18 06/05/18 06/05/18 22:00 23:00 23:50 23:59 Pulse 134 128 114 Resp 24 20 B/P (MAP) 149/80 (103) 147/90 (109) 137/88 Pulse Ox 95 95 O2 Delivery Nasal Cannula Nasal Cannula Nasal Cannula O2 Flow Rate 4.0 4.0 4.0 06/06/18 06/06/18 06/06/18 06/06/18 00:01 01:00 02:00 03:00 Temp 98.5 98.5 Pulse 119 117 108 102 Resp 16 16 28 24 B/P (MAP) 139/72 (94) 147/85 (105) 134/83 (100) 144/83 (103) Pulse Ox 96 95 94 94 O2 Delivery Nasal Cannula Nasal Cannula Nasal Cannula Nasal Cannula O2 Flow Rate 4.0 4.0 4.0 4.0 06/06/18 06/06/18 06/06/18 06/06/18 04:00 04:00 05:00 06:00 Temp 98.0 98.0 Pulse 116 100 100 Resp 24 24 24 B/P (MAP) 133/83 (100) 121/68 (85) 139/95 (110) Pulse Ox 91 93 94 O2 Delivery Nasal Cannula Nasal Cannula Nasal Cannula Nasal Cannula O2 Flow Rate 4.0 4.0 4.0 4.0 06/06/18 06/06/18 06/06/18 06/06/18 06:10 08:00 08:00 10:18 Temp 98.2 98.2 Pulse 116 108 112 Resp 24 B/P (MAP) 139/95 146/75 (98) 121/79 Pulse Ox 94 O2 Delivery Nasal Cannula Nasal Cannula O2 Flow Rate 4.0 4.0 06/06/18 11:00 Temp 98.7 98.7 Pulse 108 Resp 24 B/P (MAP) 135/54 (81) Pulse Ox 94 O2 Delivery Nasal Cannula O2 Flow Rate 4.0 Intake and Output 06/05/18 06/05/18 06/06/18 15:00 23:00 07:00 Intake Total 3111.2 ml Balance 3111.2 ml HUGO JOHNSON MD Jun 06, 2018 13:27
[2018-06-06] MEDS ORDERED: ACETAMINOPHEN 325 MG TABLET. PO PRN (13:30)
[2018-06-06] MEDS ORDERED: traMADol 50 MG TABLET PO PRN (13:30)
[2018-06-06] MEDS ORDERED: MORPHINE SULFATE 2 MG/ML VIAL. IV PRN (13:30)
[2018-06-06] MEDS ORDERED: DOCUSATE SODIUM 100 MG CAPSULE. PO PRN (13:30)
[2018-06-06] MEDS: ANTI-COAG MONITOR BY PHARMACY. MC PRN (14:26)
[2018-06-06] MEDS: METOPROLOL TART IMMED RELEASE 25 MG TABLET. PO SCH ×2 (15:07→20:17)
--- NOTE | 2018-06-06 17:45 | CARD ---
MR#: [id number] Date of Study: 06/06/2018 Ordering Physician: HUGO JOHNSON, Referring Physician: RAMONE CAMARA Tech: Sheryl Almeida RDCS APPROVED REPORT EXAM: Two-dimensional and M-mode echocardiogram with Doppler and color Doppler. Other Information Quality : AverageHR: 135bpm Rhythm : Atrial FibrillationTechnically limited study due to body habitus. INDICATION Atrial Fibrillation 2D DIMENSIONS RVDd3.2 (2.9-3.5cm)Left Atrium(2D)4.6 (1.6-4.0cm) IVSd1.2 (0.7-1.1cm)Aortic Root(2D)2.8 (2.0-3.7cm) LVDd4.9 (3.9-5.9cm)LVOT Diameter1.8 (1.8-2.4cm) PWd0.8 (0.7-1.1cm)LVDs3.2 (2.5-4.0cm) FS (%) 34.7 %SV73.0 ml M-Mode DIMENSIONS Left Atrium(MM)4.23 (2.5-4.0cm)Aortic Root3.05 (2.2-3.7cm) Aortic Valve AoV Peak Sancho.209.7cm/sAoV VTI37.8cm AO Peak GR.17.6mmHgLVOT Peak Sancho.103.6cm/s AO Mean GR.10mmHgAVA (VMAX)1.24cm2 LEANNA (VTI)1.08ag5QB P 1/2 Qbyl758kg Mitral Valve MV E Qmwzqwqq206.8cm/sMV E Peak Gr.10mmHg MV DECEL [id number] A Cyupwjtn83.0cm/s MV E Mean Gr.5mmHgE/A Ratio3.7 Pulmonary Valve PV Peak Curusuxp698.5cm/s Tricuspid Valve TR P. [id number] [id number] TR Peak Gr.[id number] LEFT VENTRICLE The left ventricle is normal size. There is borderline to mild concentric left ventricular hypertroph y. The left ventricular systolic function is normal and the ejection fraction is within normal range. The Ejection Fraction is 60-65%. There is normal LV segmental wall motion. RIGHT VENTRICLE The right ventricle is mildly dilated. There is normal right ventricular wall thickness. Systolic fun ction is mildly reduced. ATRIA The left atrium is mildly dilated. The right atrium is mildly dilated. The interatrial septum is inta ct with no evidence for an atrial septal defect or patent foramen ovale as noted on 2-D or Doppler im aging. AORTIC VALVE The aortic valve is moderately thickened but opens well. Doppler and Color Flow revealed mild aortic regurgitation. There is mild valvular aortic stenosis. Calculated aortic valve area is 1.4 cm2 with m aximum pressure gradient of 17.6 mmHg and mean pressure gradient of 10 mmHg. MITRAL VALVE The mitral valve is calcified but opens well. There is no evidence of mitral valve prolapse. There is no mitral valve stenosis. Doppler and Color-flow revealed trace to mild mitral regurgitation. TRICUSPID VALVE The tricuspid valve is normal in structure and function. Doppler and Color Flow revealed trace to mil d tricuspid regurgitation. There is mild pulmonary hypertension. The PA pressure was estimated at 35 mmHg. There is no tricuspid valve prolapse or vegetation. There is no tricuspid valve stenosis. PULMONIC VALVE The pulmonary valve is normal in structure and function. Doppler and Color Flow revealed trace pulmon ic valvular regurgitation. There is no pulmonic valvular stenosis. GREAT VESSELS The aortic root is normal in size. The ascending aorta is normal in size. PERICARDIAL EFFUSION There is no evidence of significant pericardial effusion. Critical Notification Critical Value: No <Conclusion> The left ventricle is normal size. The left ventricular systolic function is normal and the ejection fraction is within normal range. The Ejection Fraction is 60-65%. There is borderline to mild concentric left ventricular hypertrophy. There is mild valvular aortic stenosis. Calculated aortic valve area is 1.4 cm2 with maximum pressure gradient of 17.6 mmHg and mean pressure gradient of 10 mmHg. Doppler and Color Flow revealed mild aortic regurgitation. Doppler and Color-flow revealed trace to mild mitral regurgitation. Doppler and Color Flow revealed trace to mild tricuspid regurgitation. There is mild pulmonary hypertension. The PA pressure was estimated at 35 mmHg. Signed by : Teja Donohue MD Electronically Approved : 06/06/2018 17:44:04
[2018-06-06] MEDS: APIXABAN 5 MG TABLET. PO SCH (20:16)
[2018-06-07 02:21] LABS: BASE EXCESS ABG -2 mmol/L (-3-3); HCO3 ABG 22 mmol/L (21-28); PCO2 ABG 36 mmHg (35-46); PO2 ABG 68 mmHg (65-108); SAT O2 ABG 93 % (92-99)
[2018-06-07 02:38] LABS: FIO2 ABG 50
[2018-06-07 03:16] VITALS: BP 184/98
[2018-06-07 04:50] LABS: BASO % 0 % (0-3); EOS % 1 % (0-3); HEMATOCRIT 35.3 % (36.0-47.0); HEMOGLOBIN 11.9 g/dL (12.0-15.5); LYMPH # 1.9 x10^3/uL (1.0-4.8); LYMPH % 26 % (24-48); MEAN CORPUSCULAR HEMOGLOBIN 31 pg (25-35); MEAN CORPUSCULAR HGB CONC 34 g/dL (31-37); MEAN CORPUSCULAR VOLUME 92 fL (79-100); MONO # 0.6 x10^3/uL (0.0-1.1); MONO % 9 % (0-9); NEUT # 4.5 x10^3uL (1.8-7.7); NEUT % 64 % (31-73); PLATELET COUNT 137 x10^3/uL (140-400); RED BLOOD COUNT 3.84 x10^6/uL (3.50-5.40); RED CELL DISTRIBUTION WIDTH 17.3 % (11.5-14.5); WHITE BLOOD COUNT 7.1 x10^3/uL (4.0-11.0)
[2018-06-07 05:25] LABS: CALCIUM 7.5 mg/dL (8.5-10.1); CHOLESTEROL/HDL RATIO 2.5; CREATININE 0.5 mg/dL (0.6-1.0); MAGNESIUM 1.8 mg/dL (1.8-2.4); PHOSPHORUS 1.9 mg/dL (2.6-4.7); POTASSIUM 3.2 mmol/L (3.5-5.1)
[2018-06-07] MEDS: METOPROLOL TART IMMED RELEASE 25 MG TABLET. PO SCH ×4 (05:58→16:55)
[2018-06-07 07:00] VITALS: BP 147/86
[2018-06-07] MEDS ORDERED: POTASSIUM CHLORIDE 20 MEQ TABLET.ER. PO ONE (08:00)
[2018-06-07] MEDS ORDERED: ASPIRIN 325 MG TABLET PO SCH (08:00)
[2018-06-07] MEDS: LORazepam 1 MG TABLET PO SCH ×2 (08:40→21:13)
[2018-06-07] MEDS: LACTOBACILLUS RHAMNOSUS GG 1 CAPSULE. PO SCH ×2 (08:40→21:13)
[2018-06-07] MEDS: APIXABAN 5 MG TABLET. PO SCH ×2 (08:40→21:13)
[2018-06-07] MEDS: ASPIRIN ENTERIC COATED 81 MG TABLET.DR. PO SCH (08:40)
[2018-06-07] MEDS: MULTIVIT INFUSN,ADULT 4,VIT K 10 ML, THIAMINE INJ 100 MG, FOLIC ACID INJ 1 MG in IV NOR... IV SCH (08:41)
--- NOTE | 2018-06-07 09:13 | PDOC ---
TAMANNAFLAKITA Abilio ACCOUNT RECEIVABLE CLERK 06/07/18 0913: CARDIO Progress Notes Date and Time Date of Service 06/07/2018 Time of Evaluation 0912 Subjective Subjective: No Chest Pain, No shortness of breath, No Palpitations, No Dizziness Vitals Vitals Vital Signs Date Time Temp Pulse Resp B/P (MAP) Pulse Ox O2 Delivery O2 Flow Rate FiO2 06/07/18 07:30 Nasal Cannula 15.0 06/07/18 07:00 98.3 142 28 147/86 (106) 90 98.3 Weight Weight [ ] Input and Output Intake and Output Intake and Output 06/07/18 07:00 Intake Total 1380 ml Output Total 1800 ml Balance -420 ml Intake Oral 850 ml IV Total 530 ml Output Urine Total 1800 ml # Voids 150 Laboratory Labs Laboratory Tests Test 06/07/18 02:08 06/07/18 04:00 O2 Saturation 93 % (92-99) Arterial Blood pH 7.41 (7.35-7.45) Arterial Blood pCO2 at Patient Temp 36 mmHg (35-46) Arterial Blood pO2 at Patient Temp 68 mmHg (65-108) Arterial Blood HCO3 22 mmol/L (21-28) Arterial Blood Base Excess -2 mmol/L (-3-3) FiO2 50 White Blood Count 7.1 x10^3/uL (4.0-11.0) Red Blood Count 3.84 x10^6/uL (3.50-5.40) Hemoglobin 11.9 g/dL (12.0-15.5) Hematocrit 35.3 % (36.0-47.0) Mean Corpuscular Volume 92 fL (79-100) Mean Corpuscular Hemoglobin 31 pg (25-35) Mean Corpuscular Hemoglobin Concent 34 g/dL (31-37) Red Cell Distribution Width 17.3 % (11.5-14.5) Platelet Count 137 x10^3/uL (140-400) Neutrophils (%) (Auto) 64 % (31-73) Lymphocytes (%) (Auto) 26 % (24-48) Monocytes (%) (Auto) 9 % (0-9) Eosinophils (%) (Auto) 1 % (0-3) Basophils (%) (Auto) 0 % (0-3) Neutrophils # (Auto) 4.5 x10^3uL (1.8-7.7) Lymphocytes # (Auto) 1.9 x10^3/uL (1.0-4.8) Monocytes # (Auto) 0.6 x10^3/uL (0.0-1.1) Eosinophils # (Auto) 0.0 x10^3/uL (0.0-0.7) Basophils # (Auto) 0.0 x10^3/uL (0.0-0.2) Sodium Level 141 mmol/L (136-145) Potassium Level 3.2 mmol/L (3.5-5.1) Chloride Level 105 mmol/L (98-107) Carbon Dioxide Level 24 mmol/L (21-32) Anion Gap 12 (6-14) Blood Urea Nitrogen 5 mg/dL (7-20) Creatinine 0.5 mg/dL (0.6-1.0) Estimated GFR (Cockcroft-Gault) 122.0 Glucose Level 126 mg/dL (70-99) Calcium Level 7.5 mg/dL (8.5-10.1) Phosphorus Level 1.9 mg/dL (2.6-4.7) Magnesium Level 1.8 mg/dL (1.8-2.4) Triglycerides Level 97 mg/dL (0-150) Cholesterol Level 167 mg/dL (0-200) LDL Cholesterol, Calculated 81 mg/dL (0-100) VLDL Cholesterol, Calculated 19 mg/dL (0-40) Non-HDL Cholesterol Calculated 100 mg/dL (0-129) HDL Cholesterol 67 mg/dL (40-60) Cholesterol/HDL Ratio 2.5 Microbiology Micro Microbiology 06/05/18 Blood Culture - Preliminary, Resulted NO GROWTH AFTER 1 DAY Physical Exam HEENT: Neck Supple W Full Motion Chest: Symmetric LUNGS: Other (diminished) Heart: S1S2, irregularly irregular, other (tele: atrial fib) Abdomen: Soft N/T, Other (obese abdomen) Extremities: No Edema Neurology: alert, follow commands Assessment Assessment 1. atrial fibrillation with RVR; in setting of hypomagnesemia and hypokalemia --new onset; history of palpitations --replacing K again today --TTE with preserved LVEF and mild aortic and mitral stenosis --started on OAC with Eliquis on 06/06/2018 but will need to commit to ETOH cessation and exterminator helper therapy for this to be continued; otherwise patient is significant bleeding risk --increased metoprolol to Q6H for rate control --PT/OT evaluation and mobilize 2. sepsis with UTI --defer to ID 3. ETOH intoxication with encephalopathy 4. HTN --control with oral meds 5. lipid status unknown --LDLs controlled 6. 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 Agree with RAKE OPERATOR's assessment and plan. Atrial fibrillation rate continues to be elevated. Blood pressure improved and actually hypertensive Change beta blockers to calcium channel blockers and increase the dose for better rate control 2-D echo showed normal LV systolic function Continue eliquis for stroke prophylaxis FLAKITA NOLEN APRN Jun 07, 2018 09:13 EVI MENG MD Jun 07, 2018 15:11
[2018-06-07] MEDS ORDERED: METOPROLOL TARTRATE 5 MG/5 ML VIAL. IVP ONE (10:30)
[2018-06-07] MEDS: cefTRIAXone IV Push 1 GM VIAL. IVP SCH (10:37)
[2018-06-07] MEDS: NYSTATIN TOPICAL POWDER 15GM BOTTLE. TP SCH ×2 (10:38→21:13)
--- NOTE | 2018-06-07 10:41 | PDOC ---
Infectious Disease Note Subjective: Subjective Pt without complaints says is thirsty ROS: ROS Negative except for above. Vital Signs: Vital Signs Vital Signs Date Time Temp Pulse Resp B/P (MAP) Pulse Ox O2 Delivery O2 Flow Rate FiO2 06/07/18 10:37 142 147/86 06/07/18 07:30 Nasal Cannula 15.0 06/07/18 07:00 98.3 28 90 98.3 Physical Exam: PHYSICAL EXAM GENERAL: Alert, oriented patient, in mild distress, slightly anxious. HEENT: Normocephalic, atraumatic. Anicteric. Poor dentition. No thrush. Oral mucosa moist. NECK: Supple. LUNGS: Decreased breath sounds at the bases, otherwise clear. HEART: S1, S2, tachycardia. ABDOMEN: Soft, nontender, nondistended. Bowel sounds present. EXTREMITIES: No edema, no cyanosis, no clubbing. NEUROLOGIC: Alert and oriented x 3. Grossly nonfocal. PSYCHIATRIC: Slightly anxious, mood normal, cooperative. Medications: Inpatient Meds: Current Medications Medications (Trade) Dose Ordered Sig/Frannie Start Time Stop Time Status Last Admin Dose Admin Acetaminophen (Tylenol) 650 mg PRN Q6HRS PRN 06/06/18 13:30 Apixaban (Eliquis) 5 mg BID 06/06/18 21:00 06/07/18 08:40 5 MG Aspirin (Pawel Aspirin) 325 mg DAILYWBKFT 06/07/18 08:00 06/07/18 08:00 DC Aspirin (Ecotrin) 81 mg DAILYWBKFT 06/07/18 08:00 06/07/18 08:40 81 MG Ceftriaxone Sodium 1 gm/ Dextrose 50 ml @ 100 mls/hr Q24H 06/06/18 08:45 UNV Ceftriaxone Sodium (Rocephin) 1 gm Q24H 06/06/18 09:00 06/07/18 10:37 1 GM Docusate Sodium (Colace) 100 mg PRN DAILY PRN 06/06/18 13:30 Enoxaparin Sodium (Lovenox 40mg Syringe) 40 mg Q12HR 06/06/18 09:00 06/06/18 13:52 DC 06/06/18 08:33 40 MG Enoxaparin Sodium (Lovenox Per Pharmacy Prophylaxis Dosing) 1 each PRN DAILY PRN 06/05/18 17:15 06/06/18 13:59 DC Folic Acid (Folic Acid) 1 mg DAILY 06/11/18 09:00 Info (Anti-Coagulation Monitoring By Pharmacy) 1 each PRN DAILY PRN 06/06/18 14:00 06/06/18 14:26 1 EACH Lactobacillus Rhamnosus (Culturelle) 1 cap BID 06/06/18 09:00 06/07/18 08:40 1 CAP Lorazepam (Ativan) 1 mg BID 06/05/18 21:00 06/07/18 08:40 1 MG Magnesium Sulfate 50 ml @ 25 mls/hr 1X ONCE 06/06/18 09:00 06/06/18 10:59 DC 06/06/18 10:22 25 MLS/HR Metoprolol Tartrate (Lopressor Vial) 5 mg 1X ONCE 06/07/18 10:30 06/07/18 10:31 DC 06/07/18 10:37 5 MG Metoprolol Tartrate (Lopressor) 25 mg Q6HRS 06/07/18 12:00 Morphine Sulfate (Morphine Sulfate) 2 mg PRN Q2HR PRN 06/06/18 13:30 Multivitamins (Thera M Plus) 1 tab DAILY 06/11/18 09:00 Multivitamins 10 ml/Thiamine HCl 100 mg/Folic Acid 1 mg/Sodium Chloride 1,011.2 ml @ 100 mls/ hr DAILY 06/06/18 09:00 06/11/18 08:59 06/07/18 08:41 100 MLS/HR Nystatin (Nystop) 1 eric BID 06/05/18 21:00 06/07/18 10:38 1 ERIC Ondansetron HCl (Zofran) 4 mg PRN Q6HRS PRN 06/06/18 13:30 Potassium Chloride/Water 100 ml @ 100 mls/hr Q1H 06/05/18 21:00 06/06/18 00:59 DC 06/06/18 01:07 100 MLS/HR Potassium Phosphate 10 mmol/ Dextrose 103.3333 ml @ 51.667 m... Q2H 06/07/18 11:00 06/07/18 14:59 Potassium Chloride (Klor-Con) 40 meq 1X ONCE 06/07/18 08:00 06/07/18 08:01 DC 06/07/18 08:41 40 MEQ Sodium Chloride 1,000 ml @ 150 mls/hr Q6H40M 06/05/18 20:45 06/06/18 08:46 DC 06/06/18 06:18 150 MLS/HR Tramadol HCl (Ultram) 50 mg PRN Q6HRS PRN 06/06/18 13:30 Labs: Lab Laboratory Tests Test 06/07/18 02:08 06/07/18 04:00 O2 Saturation 93 % (92-99) Arterial Blood pH 7.41 (7.35-7.45) Arterial Blood pCO2 at Patient Temp 36 mmHg (35-46) Arterial Blood pO2 at Patient Temp 68 mmHg (65-108) Arterial Blood HCO3 22 mmol/L (21-28) Arterial Blood Base Excess -2 mmol/L (-3-3) FiO2 50 White Blood Count 7.1 x10^3/uL (4.0-11.0) Red Blood Count 3.84 x10^6/uL (3.50-5.40) Hemoglobin 11.9 g/dL (12.0-15.5) Hematocrit 35.3 % (36.0-47.0) Mean Corpuscular Volume 92 fL (79-100) Mean Corpuscular Hemoglobin 31 pg (25-35) Mean Corpuscular Hemoglobin Concent 34 g/dL (31-37) Red Cell Distribution Width 17.3 % (11.5-14.5) Platelet Count 137 x10^3/uL (140-400) Neutrophils (%) (Auto) 64 % (31-73) Lymphocytes (%) (Auto) 26 % (24-48) Monocytes (%) (Auto) 9 % (0-9) Eosinophils (%) (Auto) 1 % (0-3) Basophils (%) (Auto) 0 % (0-3) Neutrophils # (Auto) 4.5 x10^3uL (1.8-7.7) Lymphocytes # (Auto) 1.9 x10^3/uL (1.0-4.8) Monocytes # (Auto) 0.6 x10^3/uL (0.0-1.1) Eosinophils # (Auto) 0.0 x10^3/uL (0.0-0.7) Basophils # (Auto) 0.0 x10^3/uL (0.0-0.2) Sodium Level 141 mmol/L (136-145) Potassium Level 3.2 mmol/L (3.5-5.1) Chloride Level 105 mmol/L (98-107) Carbon Dioxide Level 24 mmol/L (21-32) Anion Gap 12 (6-14) Blood Urea Nitrogen 5 mg/dL (7-20) Creatinine 0.5 mg/dL (0.6-1.0) Estimated GFR (Cockcroft-Gault) 122.0 Glucose Level 126 mg/dL (70-99) Calcium Level 7.5 mg/dL (8.5-10.1) Phosphorus Level 1.9 mg/dL (2.6-4.7) Magnesium Level 1.8 mg/dL (1.8-2.4) Triglycerides Level 97 mg/dL (0-150) Cholesterol Level 167 mg/dL (0-200) LDL Cholesterol, Calculated 81 mg/dL (0-100) VLDL Cholesterol, Calculated 19 mg/dL (0-40) Non-HDL Cholesterol Calculated 100 mg/dL (0-129) HDL Cholesterol 67 mg/dL (40-60) Cholesterol/HDL Ratio 2.5 Micro neg so far Objective: Assessment: 1. Lactic acidosis from acute etoh 2. Acute EtOH intoxication with EtOH encephalopathy. 3. Hypokalemia, hypomagnesemia. 4. Anxiety. 5. Nausea and vomiting, resolved. 6. Liver function test elevation from EtOH. 7. Borderline BNP and CK elevation. Plan: Plan of Care DC Ceftriaxone and observe Monitor for withdrawal symptoms closely. Continue supportive care. Maintain aspiration precautions. CRIS MOBLEY MD Jun 07, 2018 10:41
[2018-06-07 11:00] VITALS: BP 157/97
[2018-06-07] MEDS: POTASSIUM PHOSPHATE DIBASIC 10 MMOL in IV DEXTROSE 5% 100ML 100 ML IV SCH ×2 (12:33→12:50)
[2018-06-07] MEDS: ANTI-COAG MONITOR BY PHARMACY. MC PRN (12:44)
--- NOTE | 2018-06-07 13:58 | CONS ---
DATE OF CONSULTATION: ATTENDING PHYSICIAN: Dr. Marie. REASON FOR CONSULTATION: Possible pneumonia, adrenal mass. HISTORY OF PRESENT ILLNESS: The patient is a 68-year-old female who has history of alcohol abuse and dependence. She was brought into the hospital after she was noted to be confused, and she was noted to be weak. Her alcohol level was elevated and lactic acid was elevated as well. Her chest x-rays was reviewed by me and shows some rounded opacity in the mid to inferior right hemithorax area and a possibility of right hilar fullness was suspected. As a result, she underwent CT of the chest, which was reviewed by me. The patient has mild infiltrates seen in the right upper and lower lobes. There is trace amount of right pleural effusion. There is a 4-cm left adrenal mass. She has possible cholelithiasis. She was started on antibiotics in the ER and I have been asked to see her for further evaluation. The patient is still a little bit lethargic, but she is on oxygen via nasal cannula. She says she does not use oxygen at home. She is currently on 4 liters, initially she was on 15 liters. PAST MEDICAL HISTORY: History of alcohol dependence and anxiety disorder. FAMILY HISTORY: Noncontributory to lungs. ALLERGIES: None. REVIEW OF SYSTEMS: Denies any headaches, no nausea, no vomiting, no diarrhea, no dysuria. She has some lower extremity edema. No chest pains. No blurring of vision. No rash. MEDICATIONS: All reviewed as listed in the [facility]. SOCIAL HISTORY: Denies any tobacco use, but has history of alcohol dependence. PHYSICAL EXAMINATION: GENERAL: She is lethargic, but follows commands. VITAL SIGNS: Blood pressure 157/97, pulse ox 90% on 4 liters, afebrile. HEENT: Sclerae nonicteric. NECK: Supple. LUNGS: With diminished breath sounds. CARDIOVASCULAR: Regular rate. ABDOMEN: Soft, obese. EXTREMITIES: Bilateral pitting edema. LABORATORY DATA: Reviewed. White cell count 7.1, hemoglobin 11.9, platelets are 137. ABGs with a pH of 7.41, pCO2 of 36 and a pO2 of 68 on 50% FiO2. Urine drug screen was positive for alcohol. IMPRESSION: 1. Abnormal CT chest with right upper and right lower lobe infiltrates. Cannot exclude the possibility of aspiration due to alcohol intoxication. 2. No significant history of tobacco use. 3. Alcohol dependence with intoxication. 4. Hypomagnesemia. 5. A 4 cm left adrenal mass. RECOMMENDATIONS: 1. The patient is now off of Rocephin. At this time, I would consider adding oral Augmentin. 2. Gradually wean oxygen. 3. She is counseled regarding alcohol cessation. 4. Watch for withdrawal. 5. P.r.n. benzodiazepine. 6. Eliquis per PCP. 7. She would need a PET scan as an outpatient to assess for hypermetabolic adrenal mass. We will follow along with you. JUSTINE PACKER MD DR: TIMOTHY/jason JOB#: [id number] / [id number]
--- NOTE | 2018-06-07 14:09 | PDOC ---
PROGRESS NOTES Chief Complaint Chief Complaint AMS, metabolic encephalopathy Acute EtOH intoxication, EtOH encephalopathy possible UTI and CAP possible sepsis lactate acidosis dehydration rapid AFIB h/o stroke wo neuroligic deficit hypomagnesemia hypokalemia obesity, BMI 39 generalized weakness left adrenal mass fu with pcp hypokalemia hypophosphatemia plan: card, id consulted off abx with ID CT chest done showed possible pna add metoprolol 25mg, increase to qid as per card, eliquis added echo banana bag daily advance diet as tolerated repeat labs tmr, mag, catrina PTOT dvt ppx replete k, catrina 1 time metoprolol 5mg iv History of Present Illness History of Present Illness FEELS better, LA DROP TO 0.8 still very weak, rapid afib , high today as 140s, barely can walk with weakness heavy drinking for 1m, willing to stop after i talked to her Vitals Vitals Vital Signs Date Time Temp Pulse Resp B/P (MAP) Pulse Ox O2 Delivery O2 Flow Rate FiO2 06/07/18 12:33 114 157/97 06/07/18 11:00 98.4 26 90 Nasal Cannula 4.0 98.4 Physical Exam Physical Exam GENERAL: Alert, oriented patient, in mild distress, slightly anxious. HEENT: Normocephalic, atraumatic. Anicteric. Poor dentition. No thrush. Oral mucosa moist. NECK: Supple. LUNGS: Decreased breath sounds at the bases, otherwise clear. HEART: S1, S2, tachycardia. ABDOMEN: Soft, nontender, nondistended. Bowel sounds present. EXTREMITIES: No edema, no cyanosis, no clubbing. NEUROLOGIC: Alert and oriented x 3. Grossly nonfocal. PSYCHIATRIC: Slightly anxious, mood normal, cooperative. General: Alert, Oriented X3, Cooperative, No acute distress Heart: Normal S1, Normal S2, Other (IRRR; tele: atrial fib) Lungs: Clear Abdomen: Normal bowel sounds, Soft, No tenderness Extremities: No edema Skin: No rashes Labs LABS Laboratory Tests Test 06/07/18 02:08 06/07/18 04:00 O2 Saturation 93 % (92-99) Arterial Blood pH 7.41 (7.35-7.45) Arterial Blood pCO2 at Patient Temp 36 mmHg (35-46) Arterial Blood pO2 at Patient Temp 68 mmHg (65-108) Arterial Blood HCO3 22 mmol/L (21-28) Arterial Blood Base Excess -2 mmol/L (-3-3) FiO2 50 White Blood Count 7.1 x10^3/uL (4.0-11.0) Red Blood Count 3.84 x10^6/uL (3.50-5.40) Hemoglobin 11.9 g/dL (12.0-15.5) Hematocrit 35.3 % (36.0-47.0) Mean Corpuscular Volume 92 fL (79-100) Mean Corpuscular Hemoglobin 31 pg (25-35) Mean Corpuscular Hemoglobin Concent 34 g/dL (31-37) Red Cell Distribution Width 17.3 % (11.5-14.5) Platelet Count 137 x10^3/uL (140-400) Neutrophils (%) (Auto) 64 % (31-73) Lymphocytes (%) (Auto) 26 % (24-48) Monocytes (%) (Auto) 9 % (0-9) Eosinophils (%) (Auto) 1 % (0-3) Basophils (%) (Auto) 0 % (0-3) Neutrophils # (Auto) 4.5 x10^3uL (1.8-7.7) Lymphocytes # (Auto) 1.9 x10^3/uL (1.0-4.8) Monocytes # (Auto) 0.6 x10^3/uL (0.0-1.1) Eosinophils # (Auto) 0.0 x10^3/uL (0.0-0.7) Basophils # (Auto) 0.0 x10^3/uL (0.0-0.2) Sodium Level 141 mmol/L (136-145) Potassium Level 3.2 mmol/L (3.5-5.1) Chloride Level 105 mmol/L (98-107) Carbon Dioxide Level 24 mmol/L (21-32) Anion Gap 12 (6-14) Blood Urea Nitrogen 5 mg/dL (7-20) Creatinine 0.5 mg/dL (0.6-1.0) Estimated GFR (Cockcroft-Gault) 122.0 Glucose Level 126 mg/dL (70-99) Calcium Level 7.5 mg/dL (8.5-10.1) Phosphorus Level 1.9 mg/dL (2.6-4.7) Magnesium Level 1.8 mg/dL (1.8-2.4) Triglycerides Level 97 mg/dL (0-150) Cholesterol Level 167 mg/dL (0-200) LDL Cholesterol, Calculated 81 mg/dL (0-100) VLDL Cholesterol, Calculated 19 mg/dL (0-40) Non-HDL Cholesterol Calculated 100 mg/dL (0-129) HDL Cholesterol 67 mg/dL (40-60) Cholesterol/HDL Ratio 2.5 Assessment and Plan Assessmemt and Plan Problems Medical Problems: (1) Hypokalemia Status: Acute (2) Hypomagnesemia Status: Acute (3) Hypoxia Status: Acute (4) Sepsis Status: Acute (5) UTI (urinary tract infection) Status: Acute Comment Review of Relevant I have reviewed the following items caro (where applicable) has been applied. Labs Laboratory Tests Test 06/05/18 21:15 06/05/18 22:00 06/06/18 00:50 06/06/18 04:09 Lactic Acid Level 4.0 mmol/L (0.4-2.0) 0.8 mmol/L (0.4-2.0) Nasal Screen MRSA (PCR) Negative (Negative) White Blood Count 7.8 x10^3/uL (4.0-11.0) Red Blood Count 3.78 x10^6/uL (3.50-5.40) Hemoglobin 11.7 g/dL (12.0-15.5) Hematocrit 34.8 % (36.0-47.0) Mean Corpuscular Volume 92 fL (79-100) Mean Corpuscular Hemoglobin 31 pg (25-35) Mean Corpuscular Hemoglobin Concent 34 g/dL (31-37) Red Cell Distribution Width 17.6 % (11.5-14.5) Platelet Count 154 x10^3/uL (140-400) Neutrophils (%) (Auto) 71 % (31-73) Lymphocytes (%) (Auto) 22 % (24-48) Monocytes (%) (Auto) 7 % (0-9) Eosinophils (%) (Auto) 0 % (0-3) Basophils (%) (Auto) 0 % (0-3) Neutrophils # (Auto) 5.5 x10^3uL (1.8-7.7) Lymphocytes # (Auto) 1.7 x10^3/uL (1.0-4.8) Monocytes # (Auto) 0.6 x10^3/uL (0.0-1.1) Eosinophils # (Auto) 0.0 x10^3/uL (0.0-0.7) Basophils # (Auto) 0.0 x10^3/uL (0.0-0.2) Prothrombin Time 14.3 SEC (11.7-14.0) Prothromb Time International Ratio 1.2 (0.8-1.1) Sodium Level 144 mmol/L (136-145) Potassium Level 4.0 mmol/L (3.5-5.1) Chloride Level 108 mmol/L (98-107) Carbon Dioxide Level 24 mmol/L (21-32) Anion Gap 12 (6-14) Blood Urea Nitrogen 7 mg/dL (7-20) Creatinine 0.5 mg/dL (0.6-1.0) Estimated GFR (Cockcroft-Gault) 122.0 BUN/Creatinine Ratio 14 (6-20) Glucose Level 138 mg/dL (70-99) Calcium Level 7.1 mg/dL (8.5-10.1) Phosphorus Level 3.2 mg/dL (2.6-4.7) Magnesium Level 1.7 mg/dL (1.8-2.4) Total Bilirubin 0.7 mg/dL (0.2-1.0) Aspartate Amino Transf (AST/SGOT) 66 U/L (15-37) Alanine Aminotransferase (ALT/SGPT) 66 U/L (14-59) Alkaline Phosphatase 101 U/L (46-116) Total Protein 6.6 g/dL (6.4-8.2) Albumin 2.6 g/dL (3.4-5.0) Albumin/Globulin Ratio 0.7 (1.0-1.7) Thyroid Stimulating Hormone (TSH) 1.754 uIU/mL (0.358-3.74) Test 06/07/18 02:08 06/07/18 04:00 O2 Saturation 93 % (92-99) Arterial Blood pH 7.41 (7.35-7.45) Arterial Blood pCO2 at Patient Temp 36 mmHg (35-46) Arterial Blood pO2 at Patient Temp 68 mmHg (65-108) Arterial Blood HCO3 22 mmol/L (21-28) Arterial Blood Base Excess -2 mmol/L (-3-3) FiO2 50 White Blood Count 7.1 x10^3/uL (4.0-11.0) Red Blood Count 3.84 x10^6/uL (3.50-5.40) Hemoglobin 11.9 g/dL (12.0-15.5) Hematocrit 35.3 % (36.0-47.0) Mean Corpuscular Volume 92 fL (79-100) Mean Corpuscular Hemoglobin 31 pg (25-35) Mean Corpuscular Hemoglobin Concent 34 g/dL (31-37) Red Cell Distribution Width 17.3 % (11.5-14.5) Platelet Count 137 x10^3/uL (140-400) Neutrophils (%) (Auto) 64 % (31-73) Lymphocytes (%) (Auto) 26 % (24-48) Monocytes (%) (Auto) 9 % (0-9) Eosinophils (%) (Auto) 1 % (0-3) Basophils (%) (Auto) 0 % (0-3) Neutrophils # (Auto) 4.5 x10^3uL (1.8-7.7) Lymphocytes # (Auto) 1.9 x10^3/uL (1.0-4.8) Monocytes # (Auto) 0.6 x10^3/uL (0.0-1.1) Eosinophils # (Auto) 0.0 x10^3/uL (0.0-0.7) Basophils # (Auto) 0.0 x10^3/uL (0.0-0.2) Sodium Level 141 mmol/L (136-145) Potassium Level 3.2 mmol/L (3.5-5.1) Chloride Level 105 mmol/L (98-107) Carbon Dioxide Level 24 mmol/L (21-32) Anion Gap 12 (6-14) Blood Urea Nitrogen 5 mg/dL (7-20) Creatinine 0.5 mg/dL (0.6-1.0) Estimated GFR (Cockcroft-Gault) 122.0 Glucose Level 126 mg/dL (70-99) Calcium Level 7.5 mg/dL (8.5-10.1) Phosphorus Level 1.9 mg/dL (2.6-4.7) Magnesium Level 1.8 mg/dL (1.8-2.4) Triglycerides Level 97 mg/dL (0-150) Cholesterol Level 167 mg/dL (0-200) LDL Cholesterol, Calculated 81 mg/dL (0-100) VLDL Cholesterol, Calculated 19 mg/dL (0-40) Non-HDL Cholesterol Calculated 100 mg/dL (0-129) HDL Cholesterol 67 mg/dL (40-60) Cholesterol/HDL Ratio 2.5 Laboratory Tests Test 06/07/18 02:08 06/07/18 04:00 O2 Saturation 93 % (92-99) Arterial Blood pH 7.41 (7.35-7.45) Arterial Blood pCO2 at Patient Temp 36 mmHg (35-46) Arterial Blood pO2 at Patient Temp 68 mmHg (65-108) Arterial Blood HCO3 22 mmol/L (21-28) Arterial Blood Base Excess -2 mmol/L (-3-3) FiO2 50 White Blood Count 7.1 x10^3/uL (4.0-11.0) Red Blood Count 3.84 x10^6/uL (3.50-5.40) Hemoglobin 11.9 g/dL (12.0-15.5) Hematocrit 35.3 % (36.0-47.0) Mean Corpuscular Volume 92 fL (79-100) Mean Corpuscular Hemoglobin 31 pg (25-35) Mean Corpuscular Hemoglobin Concent 34 g/dL (31-37) Red Cell Distribution Width 17.3 % (11.5-14.5) Platelet Count 137 x10^3/uL (140-400) Neutrophils (%) (Auto) 64 % (31-73) Lymphocytes (%) (Auto) 26 % (24-48) Monocytes (%) (Auto) 9 % (0-9) Eosinophils (%) (Auto) 1 % (0-3) Basophils (%) (Auto) 0 % (0-3) Neutrophils # (Auto) 4.5 x10^3uL (1.8-7.7) Lymphocytes # (Auto) 1.9 x10^3/uL (1.0-4.8) Monocytes # (Auto) 0.6 x10^3/uL (0.0-1.1) Eosinophils # (Auto) 0.0 x10^3/uL (0.0-0.7) Basophils # (Auto) 0.0 x10^3/uL (0.0-0.2) Sodium Level 141 mmol/L (136-145) Potassium Level 3.2 mmol/L (3.5-5.1) Chloride Level 105 mmol/L (98-107) Carbon Dioxide Level 24 mmol/L (21-32) Anion Gap 12 (6-14) Blood Urea Nitrogen 5 mg/dL (7-20) Creatinine 0.5 mg/dL (0.6-1.0) Estimated GFR (Cockcroft-Gault) 122.0 Glucose Level 126 mg/dL (70-99) Calcium Level 7.5 mg/dL (8.5-10.1) Phosphorus Level 1.9 mg/dL (2.6-4.7) Magnesium Level 1.8 mg/dL (1.8-2.4) Triglycerides Level 97 mg/dL (0-150) Cholesterol Level 167 mg/dL (0-200) LDL Cholesterol, Calculated 81 mg/dL (0-100) VLDL Cholesterol, Calculated 19 mg/dL (0-40) Non-HDL Cholesterol Calculated 100 mg/dL (0-129) HDL Cholesterol 67 mg/dL (40-60) Cholesterol/HDL Ratio 2.5 Microbiology 06/05/18 Blood Culture - Preliminary, Resulted NO GROWTH AFTER 1 DAY Medications Current Medications Lorazepam (Ativan) 1 mg 1X ONCE IV Last administered on 06/05/18at 13:24; Start 06/05/18 at 13:15; Stop 06/05/18 at 13:22; Status DC Sodium Chloride 1,000 ml @ 1,000 mls/hr Q1H IV Last administered on 06/05/18at 13:23; Start 06/05/18 at 13:13; Stop 06/05/18 at 14:12; Status DC Potassium Chloride (Klor-Con) 40 meq 1X ONCE PO Last administered on at 14:49; Start 06/05/18 at 14:00; Stop 06/05/18 at 14:02; Status DC Ceftriaxone Sodium 50 ml @ 100 mls/hr 1X ONCE IV Last administered on at 14:49; Start 06/05/18 at 14:45; Stop 06/05/18 at 15:14; Status DC Magnesium Sulfate 50 ml @ 25 mls/hr 1X ONCE IV Last administered on 06/05/18at 15:37; Start 06/05/18 at 14:45; Stop 06/05/18 at 16:44; Status DC Sodium Chloride 1,000 ml @ 1,000 mls/hr 1X ONCE IV Last administered on at 15:39; Start 06/05/18 at 15:15; Stop 06/05/18 at 16:14; Status DC Ondansetron HCl (Zofran) 4 mg STK-MED ONCE .ROUTE ; Start 06/05/18 at 15:28; Stop 06/05/18 at 15:29; Status DC Ondansetron HCl (Zofran) 4 mg 1X ONCE IV Last administered on 06/05/18at 15:40 ; Start 06/05/18 at 15:45; Stop 06/05/18 at 15:46; Status DC Multivitamins 10 ml/Thiamine HCl 100 mg/Folic Acid 1 mg/Sodium Chloride 1,011.2 ml @ 1,000.088 mls/hr 1X ONCE IV Last administered on 06/05/18at 16:17; Start 06/05/18 at 16:15; Stop 06/05/18 at 17:17; Status DC Multivitamins (Thera M Plus) 1 tab DAILY PO Last administered on 06/06/18at 08: 32; Start 06/06/18 at 09:00; Stop 06/06/18 at 09:00; Status DC Folic Acid (Folic Acid) 1 mg DAILY PO Last administered on 06/06/18at 08:32; Start 06/06/18 at 09:00; Stop 06/06/18 at 09:00; Status DC Lorazepam (Ativan) 2 mg PRN Q1HR PRN IV For CIWA 8-14 Last administered on 06/07at 06:06; Start 06/05/18 at 17:15 Lorazepam (Ativan) 4 mg PRN Q1HR PRN IV For CIWA 15 or greater; Start 06/05/18 at 17:15 Lorazepam (Ativan) 1 mg BID PO Last administered on 06/07/18at 08:40; Start at 21:00 Enoxaparin Sodium (Lovenox Per Pharmacy Prophylaxis Dosing) 1 each PRN DAILY PRN MC SEE COMMENTS; Start 06/05/18 at 17:15; Stop 06/06/18 at 13:59; Status DC Potassium Chloride (Klor-Con) 40 meq 1X ONCE PO ; Start 06/05/18 at 17:15; Stop 06/05/18 at 17:17; Status DC Enoxaparin Sodium (Lovenox 40mg Syringe) 40 mg Q24H SQ Last administered on at 21:32; Start 06/05/18 at 18:00; Stop 06/06/18 at 07:44; Status DC Potassium Chloride/Water 100 ml @ 100 mls/hr Q1H IV Last administered on at 01:07; Start 06/05/18 at 21:00; Stop 06/06/18 at 00:59; Status DC Metoprolol Tartrate (Lopressor Vial) 5 mg Q6HRS IVP Last administered on at 06:10; Start 06/06/18 at 00:00; Stop 06/06/18 at 08:46; Status DC Metoprolol Tartrate (Lopressor Vial) 5 mg 1X ONCE IVP Last administered on at 21:29; Start 06/05/18 at 20:45; Stop 06/05/18 at 20:57; Status DC Nystatin (Nystop) 1 eric BID TP Last administered on 06/07/18at 10:38; Start at 21:00 Sodium Chloride 1,000 ml @ 150 mls/hr Q6H40M IV Last administered on at 06:18; Start 06/05/18 at 20:45; Stop 06/06/18 at 08:46; Status DC Enoxaparin Sodium (Lovenox 40mg Syringe) 40 mg Q12HR SQ Last administered on at 08:33; Start 06/06/18 at 09:00; Stop 06/06/18 at 13:52; Status DC Ceftriaxone Sodium 1 gm/ Dextrose 50 ml @ 100 mls/hr Q24H IV ; Start 06/06/18 at 08:45; Status UNV Magnesium Sulfate 50 ml @ 25 mls/hr 1X ONCE IV Last administered on 06/06/18at 10:22; Start 06/06/18 at 09:00; Stop 06/06/18 at 10:59; Status DC Multivitamins 10 ml/Thiamine HCl 100 mg/Folic Acid 1 mg/Sodium Chloride 1,011.2 ml @ 100 mls/ hr DAILY IV Last administered on 06/07/18at 08:41; Start at 09:00; Stop 06/11/18 at 08:59 Metoprolol Tartrate (Lopressor) 25 mg BID PO Last administered on 06/06/18at 10: 18; Start 06/06/18 at 09:00; Stop 06/06/18 at 11:03; Status DC Ceftriaxone Sodium (Rocephin) 1 gm Q24H IVP Last administered on 06/07/18at 10: 37; Start 06/06/18 at 09:00; Stop 06/07/18 at 10:59; Status DC Lactobacillus Rhamnosus (Culturelle) 1 cap BID PO Last administered on at 08:40; Start 06/06/18 at 09:00 Folic Acid (Folic Acid) 1 mg DAILY PO ; Start 06/11/18 at 09:00 Multivitamins (Thera M Plus) 1 tab DAILY PO ; Start 06/11/18 at 09:00 Metoprolol Tartrate (Lopressor) 25 mg Q8HRS PO Last administered on 06/07/18at 05:58; Start 06/06/18 at 14:00; Stop 06/07/18 at 09:10; Status DC Acetaminophen (Tylenol) 650 mg PRN Q6HRS PRN PO FEVER; Start 06/06/18 at 13:30 Ondansetron HCl (Zofran) 4 mg PRN Q6HRS PRN IV NAUSEA/VOMITING; Start 06/06/18 at 13:30 Morphine Sulfate (Morphine Sulfate) 2 mg PRN Q2HR PRN IV MODERATE TO SEVERE PAIN; Start 06/06/18 at 13:30 Tramadol HCl (Ultram) 50 mg PRN Q6HRS PRN PO MILD TO MODERATE PAIN; Start 06/06 at 13:30 Docusate Sodium (Colace) 100 mg PRN DAILY PRN PO CONSTIPATION; Start 06/06/18 at 13:30 Aspirin (Pawel Aspirin) 325 mg DAILYWBKFT PO ; Start 06/07/18 at 08:00; Stop at 08:00; Status DC Aspirin (Ecotrin) 81 mg DAILYWBKFT PO Last administered on 06/07/18at 08:40; Start 06/07/18 at 08:00 Apixaban (Eliquis) 5 mg BID PO Last administered on 06/07/18at 08:40; Start at 21:00 Info (Anti-Coagulation Monitoring By Pharmacy) 1 each PRN DAILY PRN MC SEE COMMENTS Last administered on 06/07/18at 12:44; Start 06/06/18 at 14:00 Potassium Chloride (Klor-Con) 40 meq 1X ONCE PO Last administered on at 08:41; Start 06/07/18 at 08:00; Stop 06/07/18 at 08:01; Status DC Metoprolol Tartrate (Lopressor) 25 mg Q6HRS PO Last administered on 06/07/18at 12:33; Start 06/07/18 at 12:00 Metoprolol Tartrate (Lopressor Vial) 5 mg 1X ONCE IVP Last administered on at 10:37; Start 06/07/18 at 10:30; Stop 06/07/18 at 10:31; Status DC Potassium Phosphate 10 mmol/ Dextrose 103.3333 ml @ 51.667 m... Q2H IV Last administered on 06/07/18at 12:50; Start 06/07/18 at 11:00; Stop 06/07/18 at 14:59 Amoxicillin/ Clavulanate Potassium (Augmentin 875/ 125mg) 1 tab BID PO ; Start 06/07/18 at 14:00 Active Scripts Active Reported Multivitamins (Multivitamin) 1 Each Tablet Unknown Dose PO DAILY Calcium (Calcium Carbonate) 500 Mg Tablet 500 Mg PO Fluoxetine Hcl 10 Mg Capsule 1 Cap PO DAILY Amlodipine Besylate 10 Mg Tablet 10 Mg PO DAILY Atenolol 50 Mg Tablet 1 Tab PO DAILY Vitals/I & O Vital Sign - Last 24 Hours 06/06/18 06/06/18 06/06/18 06/06/18 15:00 15:07 19:05 19:15 Temp 98.2 98.3 98.2 98.3 Pulse 112 116 107 Resp 26 22 B/P (MAP) 137/96 (110) 135/54 157/80 (105) Pulse Ox 95 92 O2 Delivery Nasal Cannula Nasal Cannula Nasal Cannula O2 Flow Rate 4.0 4.0 4.0 06/06/18 06/06/18 06/07/18 06/07/18 20:17 23:18 01:45 03:16 Temp 98.1 98.3 98.1 98.3 Pulse 124 133 112 Resp 26 26 B/P (MAP) 157/80 156/94 (114) 184/98 (126) Pulse Ox 92 92 89 O2 Delivery Nasal Cannula Venturi Mask Venturi Mask O2 Flow Rate 5.0 15.0 06/07/18 06/07/18 06/07/18 06/07/18 05:58 07:00 07:30 10:37 Temp 98.3 98.3 Pulse 124 142 142 Resp 28 B/P (MAP) 143/102 147/86 (106) 147/86 Pulse Ox 90 O2 Delivery Venturi Mask Nasal Cannula O2 Flow Rate 15.0 06/07/18 06/07/18 11:00 12:33 Temp 98.4 98.4 Pulse 114 114 Resp 26 B/P (MAP) 157/97 (117) 157/97 Pulse Ox 90 O2 Delivery Nasal Cannula O2 Flow Rate 4.0 Intake and Output 06/06/18 06/06/18 06/07/18 15:00 23:00 07:00 Intake Total 530 ml 350 ml 500 ml Output Total 200 ml 1600 ml Balance 530 ml 150 ml -1100 ml HUGO JOHNSON MD Jun 07, 2018 14:09
[2018-06-07 15:00] VITALS: BP 148/95
[2018-06-07] MEDS: AMOXICILLIN/K CLAV 875/125MG TABLET. PO SCH ×2 (15:32→21:13)
[2018-06-07] MEDS ORDERED: CALCIUM CHLORIDE 1,000 MG in IV DEXTROSE 5% 50 ML IV ONE (17:45)
[2018-06-07] MEDS ORDERED: NORMAL SALINE IV ONE (18:00)
[2018-06-07] MEDS ORDERED: CALCIUM GLUCONATE IV ONE (18:00)
[2018-06-07] MEDS: IPRATRPIUM/ALBUTEROL 0.5/2.5MG 3 ML NEBU. NEB SCH ×2 (18:17→20:20)
[2018-06-07] MEDS ORDERED: CALCIUM CHLORIDE 1,000 MG in IV NORMAL SALINE 50ML 50 ML IV ONE (18:30)
[2018-06-07 19:20] VITALS: BP 175/91
[2018-06-07 23:20] VITALS: BP 142/72
[2018-06-08 02:28] VITALS: BP 157/102
[2018-06-08 05:05] LABS: BASO % 1 % (0-3); EOS # 0.1 x10^3/uL (0.0-0.7); EOS % 2 % (0-3); HEMATOCRIT 34.7 % (36.0-47.0); HEMOGLOBIN 11.7 g/dL (12.0-15.5); LYMPH # 1.2 x10^3/uL (1.0-4.8); LYMPH % 19 % (24-48); MEAN CORPUSCULAR HEMOGLOBIN 31 pg (25-35); MEAN CORPUSCULAR HGB CONC 34 g/dL (31-37); MEAN CORPUSCULAR VOLUME 92 fL (79-100); MONO # 0.6 x10^3/uL (0.0-1.1); MONO % 10 % (0-9); NEUT # 4.4 x10^3uL (1.8-7.7); NEUT % 69 % (31-73); PLATELET COUNT 119 x10^3/uL (140-400); RED BLOOD COUNT 3.78 x10^6/uL (3.50-5.40); RED CELL DISTRIBUTION WIDTH 17.2 % (11.5-14.5); WHITE BLOOD COUNT 6.4 x10^3/uL (4.0-11.0)
[2018-06-08 05:24] LABS: CALCIUM 7.9 mg/dL (8.5-10.1); CREATININE 0.5 mg/dL (0.6-1.0); POTASSIUM 3.2 mmol/L (3.5-5.1)
[2018-06-08] MEDS: METOPROLOL TART IMMED RELEASE 25 MG TABLET. PO SCH ×2 (05:50→13:31)
[2018-06-08 07:00] VITALS: BP 167/102
[2018-06-08] MEDS: IPRATRPIUM/ALBUTEROL 0.5/2.5MG 3 ML NEBU. NEB SCH ×4 (07:26→19:34)
--- NOTE | 2018-06-08 07:28 | PDOC ---
Infectious Disease Note Subjective: Subjective Pt is on bipap says feels ok ROS: ROS Negative except for above. Vital Signs: Vital Signs Vital Signs Date Time Temp Pulse Resp B/P (MAP) Pulse Ox O2 Delivery O2 Flow Rate FiO2 06/08/18 05:50 111 157/102 06/08/18 03:14 95 BiPAP/CPAP 06/08/18 02:28 98.8 28 15.0 98.8 Physical Exam: PHYSICAL EXAM GENERAL: Alert, oriented patient, in mild distress, slightly anxious. HEENT: Normocephalic, atraumatic. Anicteric. Poor dentition. No thrush. Oral mucosa moist. NECK: Supple. LUNGS: Decreased breath sounds at the bases, otherwise clear. HEART: S1, S2, tachycardia. ABDOMEN: Soft, nontender, nondistended. Bowel sounds present. EXTREMITIES: No edema, no cyanosis, no clubbing. NEUROLOGIC: Alert and oriented x 3. Grossly nonfocal. PSYCHIATRIC: Slightly anxious, mood normal, cooperative. Medications: Inpatient Meds: Current Medications Medications (Trade) Dose Ordered Sig/Frannie Start Time Stop Time Status Last Admin Dose Admin Acetaminophen (Tylenol) 650 mg PRN Q6HRS PRN 06/06/18 13:30 Albuterol/ Ipratropium (Duoneb) 3 ml RTQID 06/07/18 17:45 06/07/18 20:20 3 ML Amoxicillin/ Clavulanate Potassium (Augmentin 875/ 125mg) 1 tab BID 06/07/18 14:00 06/07/18 21:13 1 TAB Apixaban (Eliquis) 5 mg BID 06/06/18 21:00 06/07/18 21:13 5 MG Aspirin (Pawel Aspirin) 325 mg DAILYWBKFT 06/07/18 08:00 06/07/18 08:00 DC Aspirin (Ecotrin) 81 mg DAILYWBKFT 06/07/18 08:00 06/07/18 08:40 81 MG Calcium Chloride 1000 mg/Dextrose 60 ml @ 120 mls/hr 1X ONCE 06/07/18 17:45 06/07/18 18:14 UNV Calcium Chloride 1000 mg/Sodium Chloride 60 ml @ 120 mls/hr 1X ONCE 06/07/18 18:30 06/07/18 18:59 Cancel Calcium Gluconate 1000 mg/Sodium Chloride 60 ml @ 120 mls/hr 1X ONCE 06/07/18 18:00 06/07/18 18:29 DC 06/07/18 18:02 120 MLS/HR Ceftriaxone Sodium 1 gm/ Dextrose 50 ml @ 100 mls/hr Q24H 06/06/18 08:45 UNV Ceftriaxone Sodium (Rocephin) 1 gm Q24H 06/06/18 09:00 06/07/18 10:59 DC 06/07/18 10:37 1 GM Docusate Sodium (Colace) 100 mg PRN DAILY PRN 06/06/18 13:30 Enoxaparin Sodium (Lovenox 40mg Syringe) 40 mg Q12HR 06/06/18 09:00 06/06/18 13:52 DC 06/06/18 08:33 40 MG Enoxaparin Sodium (Lovenox Per Pharmacy Prophylaxis Dosing) 1 each PRN DAILY PRN 06/05/18 17:15 06/06/18 13:59 DC Folic Acid (Folic Acid) 1 mg DAILY 06/11/18 09:00 Info (Anti-Coagulation Monitoring By Pharmacy) 1 each PRN DAILY PRN 06/06/18 14:00 06/07/18 12:44 1 EACH Lactobacillus Rhamnosus (Culturelle) 1 cap BID 06/06/18 09:00 06/07/18 21:13 1 CAP Lorazepam (Ativan) 1 mg BID 06/05/18 21:00 06/07/18 21:13 1 MG Magnesium Sulfate 50 ml @ 25 mls/hr 1X ONCE 06/06/18 09:00 06/06/18 10:59 DC 06/06/18 10:22 25 MLS/HR Metoprolol Tartrate (Lopressor Vial) 5 mg 1X ONCE 06/07/18 10:30 06/07/18 10:31 DC 06/07/18 10:37 5 MG Metoprolol Tartrate (Lopressor) 25 mg Q6HRS 06/07/18 12:00 06/08/18 05:50 25 MG Morphine Sulfate (Morphine Sulfate) 2 mg PRN Q2HR PRN 06/06/18 13:30 Multivitamins (Thera M Plus) 1 tab DAILY 06/11/18 09:00 Multivitamins 10 ml/Thiamine HCl 100 mg/Folic Acid 1 mg/Sodium Chloride 1,011.2 ml @ 100 mls/ hr DAILY 06/06/18 09:00 06/11/18 08:59 06/07/18 08:41 100 MLS/HR Nystatin (Nystop) 1 eric BID 06/05/18 21:00 06/07/18 21:13 1 ERIC Ondansetron HCl (Zofran) 4 mg PRN Q6HRS PRN 06/06/18 13:30 Potassium Chloride/Water 100 ml @ 100 mls/hr Q1H 06/05/18 21:00 06/06/18 00:59 DC 06/06/18 01:07 100 MLS/HR Potassium Phosphate 10 mmol/ Dextrose 103.3333 ml @ 51.667 m... Q2H 06/07/18 11:00 06/07/18 14:59 DC 06/07/18 12:50 51.667 MLS/HR Potassium Chloride (Klor-Con) 40 meq 1X ONCE 06/07/18 08:00 06/07/18 08:01 DC 06/07/18 08:41 40 MEQ Sodium Chloride 1,000 ml @ 150 mls/hr Q6H40M 06/05/18 20:45 06/06/18 08:46 DC 06/06/18 06:18 150 MLS/HR Tramadol HCl (Ultram) 50 mg PRN Q6HRS PRN 06/06/18 13:30 Labs: Lab Laboratory Tests Test 06/08/18 04:00 White Blood Count 6.4 x10^3/uL (4.0-11.0) Red Blood Count 3.78 x10^6/uL (3.50-5.40) Hemoglobin 11.7 g/dL (12.0-15.5) Hematocrit 34.7 % (36.0-47.0) Mean Corpuscular Volume 92 fL (79-100) Mean Corpuscular Hemoglobin 31 pg (25-35) Mean Corpuscular Hemoglobin Concent 34 g/dL (31-37) Red Cell Distribution Width 17.2 % (11.5-14.5) Platelet Count 119 x10^3/uL (140-400) Neutrophils (%) (Auto) 69 % (31-73) Lymphocytes (%) (Auto) 19 % (24-48) Monocytes (%) (Auto) 10 % (0-9) Eosinophils (%) (Auto) 2 % (0-3) Basophils (%) (Auto) 1 % (0-3) Neutrophils # (Auto) 4.4 x10^3uL (1.8-7.7) Lymphocytes # (Auto) 1.2 x10^3/uL (1.0-4.8) Monocytes # (Auto) 0.6 x10^3/uL (0.0-1.1) Eosinophils # (Auto) 0.1 x10^3/uL (0.0-0.7) Basophils # (Auto) 0.0 x10^3/uL (0.0-0.2) Sodium Level 141 mmol/L (136-145) Potassium Level 3.2 mmol/L (3.5-5.1) Chloride Level 104 mmol/L (98-107) Carbon Dioxide Level 28 mmol/L (21-32) Anion Gap 9 (6-14) Blood Urea Nitrogen 4 mg/dL (7-20) Creatinine 0.5 mg/dL (0.6-1.0) Estimated GFR (Cockcroft-Gault) 122.0 Glucose Level 135 mg/dL (70-99) Calcium Level 7.9 mg/dL (8.5-10.1) Micro RUN DATE: 06/08/18 PAGE 1 RUN TIME: 419 [facility] [address] [place] [address] Rinku Armstrong M.D., [place] PATIENT: ARNOLD SORENSON ACCT: [id number] LOC: [address] [place] [address] U : [id number] AGE/SX: 68/F ROOM: 246 REG : 06/05/[address]: RAMONE CAMARA MD : [id number] BED: 1 DIS : STATUS: ADM IN TLOC: SPEC #: [id number] AMRKOS: 06/05/18 STATUS: RES REQ #: [id number] RECD: 06/05/[address]: MOON MANZANO APRN SOURCE: STRA CATH ENTR: 06/05/[address] NO PCP ORDERED: URINE CULTURE Procedure Result URINE CULTURE Preliminary Preliminary report URINE CULTURE RES 1 Preliminary Escherichia coli Greater than 100,000 colony forming units per mL Performed at: DA - [facility] [place] [address] [facility] [address], [place], [place] [id number] Office Runner: KARLOS Rojas MD, Phone: [phone] Objective: Assessment: 1. Lactic acidosis from acute etoh 2. Acute EtOH intoxication with EtOH encephalopathy. 3. Hypokalemia, hypomagnesemia. 4. Anxiety. 5. Nausea and vomiting, resolved. 6. Liver function test elevation from EtOH. 7. Borderline BNP and CK elevation. 8. Ecoli on Urine c/s Plan: Plan of Care will restart ceftriaxone ,has been on since admission until bethany of e coli is back dc augmentin for now Maintain aspiration precautions. CRIS MOBLEY MD Jun 08, 2018 07:28
[2018-06-08 08:58] LABS: MAGNESIUM 1.6 mg/dL (1.8-2.4); PHOSPHORUS 3.3 mg/dL (2.6-4.7)
[2018-06-08] MEDS: NYSTATIN TOPICAL POWDER 15GM BOTTLE. TP SCH ×2 (09:00→21:44)
--- NOTE | 2018-06-08 09:22 | PDOC ---
PULMONARY PROGRESS NOTES Subjective had some soa last night placed on BIPAP off now Vitals Vital Signs Date Time Temp Pulse Resp B/P (MAP) Pulse Ox O2 Delivery O2 Flow Rate FiO2 06/08/18 07:27 94 BiPAP/CPAP 06/08/18 07:00 98.5 114 32 167/102 (123) 15.0 98.5 General: Alert, No acute distress Lungs: Other (few rhonchi) Cardiovascular: S1 Abdomen: Soft Neuro Exam: Alert Extremities: Other (1+edema) Labs Laboratory Tests Test 06/07/18 02:08 06/07/18 04:00 06/08/18 04:00 O2 Saturation 93 % (92-99) Arterial Blood pH 7.41 (7.35-7.45) Arterial Blood pCO2 at Patient Temp 36 mmHg (35-46) Arterial Blood pO2 at Patient Temp 68 mmHg (65-108) Arterial Blood HCO3 22 mmol/L (21-28) Arterial Blood Base Excess -2 mmol/L (-3-3) FiO2 50 White Blood Count 7.1 x10^3/uL (4.0-11.0) 6.4 x10^3/uL (4.0-11.0) Red Blood Count 3.84 x10^6/uL (3.50-5.40) 3.78 x10^6/uL (3.50-5.40) Hemoglobin 11.9 g/dL (12.0-15.5) 11.7 g/dL (12.0-15.5) Hematocrit 35.3 % (36.0-47.0) 34.7 % (36.0-47.0) Mean Corpuscular Volume 92 fL (79-100) 92 fL (79-100) Mean Corpuscular Hemoglobin 31 pg (25-35) 31 pg (25-35) Mean Corpuscular Hemoglobin Concent 34 g/dL (31-37) 34 g/dL (31-37) Red Cell Distribution Width 17.3 % (11.5-14.5) 17.2 % (11.5-14.5) Platelet Count 137 x10^3/uL (140-400) 119 x10^3/uL (140-400) Neutrophils (%) (Auto) 64 % (31-73) 69 % (31-73) Lymphocytes (%) (Auto) 26 % (24-48) 19 % (24-48) Monocytes (%) (Auto) 9 % (0-9) 10 % (0-9) Eosinophils (%) (Auto) 1 % (0-3) 2 % (0-3) Basophils (%) (Auto) 0 % (0-3) 1 % (0-3) Neutrophils # (Auto) 4.5 x10^3uL (1.8-7.7) 4.4 x10^3uL (1.8-7.7) Lymphocytes # (Auto) 1.9 x10^3/uL (1.0-4.8) 1.2 x10^3/uL (1.0-4.8) Monocytes # (Auto) 0.6 x10^3/uL (0.0-1.1) 0.6 x10^3/uL (0.0-1.1) Eosinophils # (Auto) 0.0 x10^3/uL (0.0-0.7) 0.1 x10^3/uL (0.0-0.7) Basophils # (Auto) 0.0 x10^3/uL (0.0-0.2) 0.0 x10^3/uL (0.0-0.2) Sodium Level 141 mmol/L (136-145) 141 mmol/L (136-145) Potassium Level 3.2 mmol/L (3.5-5.1) 3.2 mmol/L (3.5-5.1) Chloride Level 105 mmol/L (98-107) 104 mmol/L (98-107) Carbon Dioxide Level 24 mmol/L (21-32) 28 mmol/L (21-32) Anion Gap 12 (6-14) 9 (6-14) Blood Urea Nitrogen 5 mg/dL (7-20) 4 mg/dL (7-20) Creatinine 0.5 mg/dL (0.6-1.0) 0.5 mg/dL (0.6-1.0) Estimated GFR (Cockcroft-Gault) 122.0 122.0 Glucose Level 126 mg/dL (70-99) 135 mg/dL (70-99) Calcium Level 7.5 mg/dL (8.5-10.1) 7.9 mg/dL (8.5-10.1) Phosphorus Level 1.9 mg/dL (2.6-4.7) 3.3 mg/dL (2.6-4.7) Magnesium Level 1.8 mg/dL (1.8-2.4) 1.6 mg/dL (1.8-2.4) Triglycerides Level 97 mg/dL (0-150) Cholesterol Level 167 mg/dL (0-200) LDL Cholesterol, Calculated 81 mg/dL (0-100) VLDL Cholesterol, Calculated 19 mg/dL (0-40) Non-HDL Cholesterol Calculated 100 mg/dL (0-129) HDL Cholesterol 67 mg/dL (40-60) Cholesterol/HDL Ratio 2.5 Laboratory Tests Test 06/08/18 04:00 White Blood Count 6.4 x10^3/uL (4.0-11.0) Red Blood Count 3.78 x10^6/uL (3.50-5.40) Hemoglobin 11.7 g/dL (12.0-15.5) Hematocrit 34.7 % (36.0-47.0) Mean Corpuscular Volume 92 fL (79-100) Mean Corpuscular Hemoglobin 31 pg (25-35) Mean Corpuscular Hemoglobin Concent 34 g/dL (31-37) Red Cell Distribution Width 17.2 % (11.5-14.5) Platelet Count 119 x10^3/uL (140-400) Neutrophils (%) (Auto) 69 % (31-73) Lymphocytes (%) (Auto) 19 % (24-48) Monocytes (%) (Auto) 10 % (0-9) Eosinophils (%) (Auto) 2 % (0-3) Basophils (%) (Auto) 1 % (0-3) Neutrophils # (Auto) 4.4 x10^3uL (1.8-7.7) Lymphocytes # (Auto) 1.2 x10^3/uL (1.0-4.8) Monocytes # (Auto) 0.6 x10^3/uL (0.0-1.1) Eosinophils # (Auto) 0.1 x10^3/uL (0.0-0.7) Basophils # (Auto) 0.0 x10^3/uL (0.0-0.2) Sodium Level 141 mmol/L (136-145) Potassium Level 3.2 mmol/L (3.5-5.1) Chloride Level 104 mmol/L (98-107) Carbon Dioxide Level 28 mmol/L (21-32) Anion Gap 9 (6-14) Blood Urea Nitrogen 4 mg/dL (7-20) Creatinine 0.5 mg/dL (0.6-1.0) Estimated GFR (Cockcroft-Gault) 122.0 Glucose Level 135 mg/dL (70-99) Calcium Level 7.9 mg/dL (8.5-10.1) Phosphorus Level 3.3 mg/dL (2.6-4.7) Magnesium Level 1.6 mg/dL (1.8-2.4) Medications Active Scripts Medications Dose Route/Sig Max Daily Dose Days Date Category Multivitamins (Multivitamin) 1 Each Tablet Unknown Dose PO DAILY 06/06/18 Reported Calcium (Calcium Carbonate) 500 Mg Tablet 500 Mg PO 06/06/18 Reported Fluoxetine Hcl 10 Mg Capsule 1 Cap PO DAILY 06/06/18 Reported Amlodipine Besylate 10 Mg Tablet 10 Mg PO DAILY 06/06/18 Reported Atenolol 50 Mg Tablet 1 Tab PO DAILY 06/06/18 Reported Impression . 1. Abnormal CT chest with right upper and right lower lobe infiltrates. Cannot exclude the possibility of aspiration pneumonia due to alcohol intoxication. 2. No significant history of tobacco use. 3. Alcohol dependence with intoxication. 4. Hypomagnesemia. 5. A 4 cm left adrenal mass. Plan . 1. oral Augmentin. 2. oxygen./ PRN BIPAP. keep sat @92% 3. She is counseled regarding alcohol cessation. 4. Watch for withdrawal. 5. P.r.n. benzodiazepine. 6. Eliquis per PCP. 7. She would need a PET scan as an outpatient to assess for hypermetabolic adrenal mass. JUSTINE PACKER MD Jun 08, 2018 09:22
[2018-06-08] MEDS: LACTOBACILLUS RHAMNOSUS GG 1 CAPSULE. PO SCH ×2 (10:12→21:44)
[2018-06-08] MEDS: LORazepam 1 MG TABLET PO SCH ×2 (10:12→21:44)
[2018-06-08] MEDS: ASPIRIN ENTERIC COATED 81 MG TABLET.DR. PO SCH (10:13)
[2018-06-08] MEDS: ONDANSETRON PF 4 MG/2 ML VIAL. IV PRN ×2 (10:13→21:45)
[2018-06-08] MEDS: APIXABAN 5 MG TABLET. PO SCH ×2 (10:13→21:44)
[2018-06-08] MEDS: cefTRIAXone IV Push 1 GM VIAL. IVP SCH (10:14)
[2018-06-08] MEDS: THIAMINE 100 MG TABLET. PO SCH (10:17)
[2018-06-08] MEDS: FOLIC ACID 1 MG TABLET. PO SCH (10:17)
--- NOTE | 2018-06-08 10:55 | RAD ---
EXAM: PORTABLE CHEST 1V DATE: 06/08/2018 10:26 AM INDICATION: Shortness of air, CRACKLING COMPARISON: 06/04/2018 FINDINGS/ IMPRESSION: Heart is moderately enlarged. Perihilar and lung base parenchymal opacities are seen with small bilateral pleural effusions. Findings may represent pulmonary edema or multifocal pneumonia. No pneumothorax. Electronically signed by: Corby Henderson MD (06/08/2018 10:52 AM) [facility]
[2018-06-08 11:00] VITALS: BP 174/95
--- NOTE | 2018-06-08 11:39 | PDOC ---
PROGRESS NOTES Subjective Subjective Feels better but continues to complain of generalized weakness Objective Objective Vital Signs Date Time Temp Pulse Resp B/P (MAP) Pulse Ox O2 Delivery O2 Flow Rate FiO2 06/08/18 11:12 91 Nasal Cannula 6.0 06/08/18 11:00 98.9 115 28 174/95 (121) 98.9 Intake and Output 06/08/18 07:00 Intake Total 1780 ml Output Total 4825 ml Balance -3045 ml Intake Oral 1780 ml Output Urine Total 4825 ml Physical Exam Abdomen: Normal bowel sounds, Soft, No tenderness Heart: Other (IRRR; tele: atrial fib) Extremities: No edema General: Alert, Cooperative, No acute distress HEENT: Atraumatic Lungs: Clear to auscultation Neuro: Normal speech Psych/Mental Status: Mental status NL, Mood NL Skin: No rashes Assessment Assessment 1. atrial fibrillation with RVR; in setting of hypomagnesemia and hypokalemia --new onset; history of palpitations --Replace K and Mg --TTE with preserved LVEF and mild aortic and mitral stenosis --Change metoprolol to Cardizem and continue eliquis for stroke prophylaxis 2. sepsis with UTI --defer to ID 3. ETOH intoxication with encephalopathy 4. HTN --Blood pressure elevated. Adjust antihypertensives as stated above 5. lipid status unknown --LDLs controlled Plan Plan of Care Problems Medical Problems: (1) Hypokalemia Status: Acute (2) Hypomagnesemia Status: Acute (3) Hypoxia Status: Acute (4) Sepsis Status: Acute (5) UTI (urinary tract infection) Status: Acute Comment Review of Relevant I have reviewed the following items caro (where applicable) has been applied. Labs Laboratory Tests Test 06/08/18 04:00 White Blood Count 6.4 x10^3/uL (4.0-11.0) Red Blood Count 3.78 x10^6/uL (3.50-5.40) Hemoglobin 11.7 g/dL (12.0-15.5) Hematocrit 34.7 % (36.0-47.0) Mean Corpuscular Volume 92 fL (79-100) Mean Corpuscular Hemoglobin 31 pg (25-35) Mean Corpuscular Hemoglobin Concent 34 g/dL (31-37) Red Cell Distribution Width 17.2 % (11.5-14.5) Platelet Count 119 x10^3/uL (140-400) Neutrophils (%) (Auto) 69 % (31-73) Lymphocytes (%) (Auto) 19 % (24-48) Monocytes (%) (Auto) 10 % (0-9) Eosinophils (%) (Auto) 2 % (0-3) Basophils (%) (Auto) 1 % (0-3) Neutrophils # (Auto) 4.4 x10^3uL (1.8-7.7) Lymphocytes # (Auto) 1.2 x10^3/uL (1.0-4.8) Monocytes # (Auto) 0.6 x10^3/uL (0.0-1.1) Eosinophils # (Auto) 0.1 x10^3/uL (0.0-0.7) Basophils # (Auto) 0.0 x10^3/uL (0.0-0.2) Sodium Level 141 mmol/L (136-145) Potassium Level 3.2 mmol/L (3.5-5.1) Chloride Level 104 mmol/L (98-107) Carbon Dioxide Level 28 mmol/L (21-32) Anion Gap 9 (6-14) Blood Urea Nitrogen 4 mg/dL (7-20) Creatinine 0.5 mg/dL (0.6-1.0) Estimated GFR (Cockcroft-Gault) 122.0 Glucose Level 135 mg/dL (70-99) Calcium Level 7.9 mg/dL (8.5-10.1) Phosphorus Level 3.3 mg/dL (2.6-4.7) Magnesium Level 1.6 mg/dL (1.8-2.4) Microbiology 06/05/18 Blood Culture - Preliminary, Resulted NO GROWTH AFTER 2 DAYS 06/05/18 Urine Culture - Preliminary, Resulted 06/05/18 Urine Culture Result 1 (CHARLEY) - Preliminary, Resulted Medications Current Medications Albuterol/ Ipratropium (Duoneb) 3 ml RTQID NEB Last administered on 06/08/18at 11:12; Start 06/07/18 at 17:45 Amoxicillin/ Clavulanate Potassium (Augmentin 875/ 125mg) 1 tab BID PO Last administered on 06/07/18at 21:13; Start 06/07/18 at 14:00; Stop 06/08/18 at 07:39 ; Status DC Calcium Chloride 1000 mg/Dextrose 60 ml @ 120 mls/hr 1X ONCE IV ; Start at 17:45; Stop 06/07/18 at 18:14; Status UNV Calcium Chloride 1000 mg/Sodium Chloride 60 ml @ 120 mls/hr 1X ONCE IV ; Start 06/07/18 at 18:30; Stop 06/07/18 at 18:59; Status Cancel Calcium Gluconate 1000 mg/Sodium Chloride 60 ml @ 120 mls/hr 1X ONCE IV Last administered on 06/07/18at 18:02; Start 06/07/18 at 18:00; Stop 06/07/18 at 18:29 ; Status DC Ceftriaxone Sodium 1 gm/ Dextrose 50 ml @ 100 mls/hr Q24H IV ; Start 06/08/18 at 07:45; Status UNV Ceftriaxone Sodium (Rocephin) 1 gm Q24H IVP Last administered on 06/08/18at 10: 14; Start 06/08/18 at 09:00 Folic Acid (Folic Acid) 1 mg DAILY PO Last administered on 06/08/18at 10:17; Start 06/08/18 at 10:00 Folic Acid (Folic Acid) 1 mg DAILY PO ; Start 06/11/18 at 09:00; Status Cancel Metoprolol Tartrate (Lopressor) 25 mg Q6HRS PO Last administered on 06/08/18at 05:50; Start 06/07/18 at 12:00 Multivitamins (Thera M Plus) 1 tab DAILY PO ; Start 06/11/18 at 09:00 Thiamine Mononitrate (Vitamin B-1) 100 mg DAILY PO Last administered on at 10:17; Start 06/08/18 at 10:00 Vitals/I & O Vital Sign - Last 24 Hours 06/07/18 06/07/18 06/07/18 06/07/18 12:33 15:00 15:36 16:55 Temp 98.4 98.4 Pulse 114 114 114 123 B/P (MAP) 157/97 148/95 (112) 157/97 145/98 Pulse Ox 90 O2 Delivery Nasal Cannula O2 Flow Rate 5.0 06/07/18 06/07/18 06/07/18 06/07/18 18:21 19:20 19:30 20:19 Temp 98.1 98.1 Pulse 120 Resp 20 B/P (MAP) 175/91 (119) Pulse Ox 93 93 96 O2 Delivery BiPAP/CPAP BiPAP/CPAP Bi-pap BiPAP/CPAP 06/07/18 06/07/18 06/07/18 06/08/18 21:16 23:20 23:28 02:28 Temp 98.2 98.8 98.2 98.8 Pulse 119 111 Resp 20 28 B/P (MAP) 142/72 (95) 157/102 (120) Pulse Ox 94 96 94 90 O2 Delivery BiPAP/CPAP BiPAP/CPAP BiPAP/CPAP Venturi Mask O2 Flow Rate 15.0 06/08/18 06/08/18 06/08/18 06/08/18 03:14 05:50 07:00 07:27 Temp 98.5 98.5 Pulse 111 114 Resp 32 B/P (MAP) 157/102 167/102 (123) Pulse Ox 95 96 94 O2 Delivery BiPAP/CPAP BiPAP/CPAP BiPAP/CPAP O2 Flow Rate 15.0 06/08/18 06/08/18 11:00 11:12 Temp 98.9 98.9 Pulse 115 Resp 28 B/P (MAP) 174/95 (121) Pulse Ox 90 91 O2 Delivery Nasal Cannula Nasal Cannula O2 Flow Rate 5.0 6.0 Intake and Output 06/07/18 06/07/18 06/08/18 15:00 23:00 07:00 Intake Total 780 ml 300 ml 700 ml Output Total 900 ml 650 ml 3275 ml Balance -120 ml -350 ml -2575 ml EVI MENG MD Jun 08, 2018 11:39
[2018-06-08] MEDS ORDERED: POTASSIUM CHLORIDE 20 MEQ TABLET.ER. PO ONE (12:45)
[2018-06-08] MEDS ORDERED: MAGNESIUM SULFATE 2GM 50 ML IV ONE (12:45)
--- NOTE | 2018-06-08 12:47 | PDOC ---
PROGRESS NOTES Chief Complaint Chief Complaint AMS, metabolic encephalopathy Acute EtOH intoxication, EtOH encephalopathy possible UTI and CAP possible sepsis lactate acidosis dehydration rapid AFIB h/o stroke wo neuroligic deficit hypomagnesemia hypokalemia obesity, BMI 39 generalized weakness left adrenal mass fu with pcp hypokalemia hypophosphatemia hypomagnesemia plan: card, id , pulm fu restart ceftriaxone CT chest done showed possible pna add metoprolol 25mg, increase to qid as per card, eliquis addedm still rapid afib, change to cardizem? defer to card echo dc ivf, repeat CXR showed possible pna and pulmanory edema, lasix 40mgiv x1 advance diet as tolerated repeat labs tmr, mag, catrina PTOT dvt ppx replete k, catrina, mag History of Present Illness History of Present Illness FEELS better, LA DROP TO 0.8 still very weak, rapid afib , barely can walk with weakness heavy drinking for 1m, willing to stop after i talked to her pt appears more sob, but said no sob to me, on bipap overnight, now on NC 5l low k, catrina, mag Vitals Vitals Vital Signs Date Time Temp Pulse Resp B/P (MAP) Pulse Ox O2 Delivery O2 Flow Rate FiO2 06/08/18 11:12 91 Nasal Cannula 6.0 06/08/18 11:00 98.9 115 28 174/95 (121) 98.9 Physical Exam Physical Exam GENERAL: Alert, oriented patient, in mild distress, slightly anxious. HEENT: Normocephalic, atraumatic. Anicteric. Poor dentition. No thrush. Oral mucosa moist. NECK: Supple. LUNGS: bl base crackles HEART: S1, S2, tachycardia. ABDOMEN: Soft, nontender, nondistended. Bowel sounds present. EXTREMITIES: No edema, no cyanosis, no clubbing. NEUROLOGIC: Alert and oriented x 3. Grossly nonfocal. PSYCHIATRIC: Slightly anxious, mood normal, cooperative. General: Alert, Oriented X3, Cooperative, No acute distress Heart: Normal S1, Normal S2, Other (IRRR; tele: atrial fib) Lungs: Crackles (bl base crackles), Other ( ) Abdomen: Normal bowel sounds, Soft, No tenderness Extremities: No edema Skin: No rashes Labs LABS Laboratory Tests Test 06/08/18 04:00 White Blood Count 6.4 x10^3/uL (4.0-11.0) Red Blood Count 3.78 x10^6/uL (3.50-5.40) Hemoglobin 11.7 g/dL (12.0-15.5) Hematocrit 34.7 % (36.0-47.0) Mean Corpuscular Volume 92 fL (79-100) Mean Corpuscular Hemoglobin 31 pg (25-35) Mean Corpuscular Hemoglobin Concent 34 g/dL (31-37) Red Cell Distribution Width 17.2 % (11.5-14.5) Platelet Count 119 x10^3/uL (140-400) Neutrophils (%) (Auto) 69 % (31-73) Lymphocytes (%) (Auto) 19 % (24-48) Monocytes (%) (Auto) 10 % (0-9) Eosinophils (%) (Auto) 2 % (0-3) Basophils (%) (Auto) 1 % (0-3) Neutrophils # (Auto) 4.4 x10^3uL (1.8-7.7) Lymphocytes # (Auto) 1.2 x10^3/uL (1.0-4.8) Monocytes # (Auto) 0.6 x10^3/uL (0.0-1.1) Eosinophils # (Auto) 0.1 x10^3/uL (0.0-0.7) Basophils # (Auto) 0.0 x10^3/uL (0.0-0.2) Sodium Level 141 mmol/L (136-145) Potassium Level 3.2 mmol/L (3.5-5.1) Chloride Level 104 mmol/L (98-107) Carbon Dioxide Level 28 mmol/L (21-32) Anion Gap 9 (6-14) Blood Urea Nitrogen 4 mg/dL (7-20) Creatinine 0.5 mg/dL (0.6-1.0) Estimated GFR (Cockcroft-Gault) 122.0 Glucose Level 135 mg/dL (70-99) Calcium Level 7.9 mg/dL (8.5-10.1) Phosphorus Level 3.3 mg/dL (2.6-4.7) Magnesium Level 1.6 mg/dL (1.8-2.4) Assessment and Plan Assessmemt and Plan Problems Medical Problems: (1) Hypokalemia Status: Acute (2) Hypomagnesemia Status: Acute (3) Hypoxia Status: Acute (4) Sepsis Status: Acute (5) UTI (urinary tract infection) Status: Acute Comment Review of Relevant I have reviewed the following items caro (where applicable) has been applied. Labs Laboratory Tests Test 06/07/18 02:08 06/07/18 04:00 06/08/18 04:00 O2 Saturation 93 % (92-99) Arterial Blood pH 7.41 (7.35-7.45) Arterial Blood pCO2 at Patient Temp 36 mmHg (35-46) Arterial Blood pO2 at Patient Temp 68 mmHg (65-108) Arterial Blood HCO3 22 mmol/L (21-28) Arterial Blood Base Excess -2 mmol/L (-3-3) FiO2 50 White Blood Count 7.1 x10^3/uL (4.0-11.0) 6.4 x10^3/uL (4.0-11.0) Red Blood Count 3.84 x10^6/uL (3.50-5.40) 3.78 x10^6/uL (3.50-5.40) Hemoglobin 11.9 g/dL (12.0-15.5) 11.7 g/dL (12.0-15.5) Hematocrit 35.3 % (36.0-47.0) 34.7 % (36.0-47.0) Mean Corpuscular Volume 92 fL (79-100) 92 fL (79-100) Mean Corpuscular Hemoglobin 31 pg (25-35) 31 pg (25-35) Mean Corpuscular Hemoglobin Concent 34 g/dL (31-37) 34 g/dL (31-37) Red Cell Distribution Width 17.3 % (11.5-14.5) 17.2 % (11.5-14.5) Platelet Count 137 x10^3/uL (140-400) 119 x10^3/uL (140-400) Neutrophils (%) (Auto) 64 % (31-73) 69 % (31-73) Lymphocytes (%) (Auto) 26 % (24-48) 19 % (24-48) Monocytes (%) (Auto) 9 % (0-9) 10 % (0-9) Eosinophils (%) (Auto) 1 % (0-3) 2 % (0-3) Basophils (%) (Auto) 0 % (0-3) 1 % (0-3) Neutrophils # (Auto) 4.5 x10^3uL (1.8-7.7) 4.4 x10^3uL (1.8-7.7) Lymphocytes # (Auto) 1.9 x10^3/uL (1.0-4.8) 1.2 x10^3/uL (1.0-4.8) Monocytes # (Auto) 0.6 x10^3/uL (0.0-1.1) 0.6 x10^3/uL (0.0-1.1) Eosinophils # (Auto) 0.0 x10^3/uL (0.0-0.7) 0.1 x10^3/uL (0.0-0.7) Basophils # (Auto) 0.0 x10^3/uL (0.0-0.2) 0.0 x10^3/uL (0.0-0.2) Sodium Level 141 mmol/L (136-145) 141 mmol/L (136-145) Potassium Level 3.2 mmol/L (3.5-5.1) 3.2 mmol/L (3.5-5.1) Chloride Level 105 mmol/L (98-107) 104 mmol/L (98-107) Carbon Dioxide Level 24 mmol/L (21-32) 28 mmol/L (21-32) Anion Gap 12 (6-14) 9 (6-14) Blood Urea Nitrogen 5 mg/dL (7-20) 4 mg/dL (7-20) Creatinine 0.5 mg/dL (0.6-1.0) 0.5 mg/dL (0.6-1.0) Estimated GFR (Cockcroft-Gault) 122.0 122.0 Glucose Level 126 mg/dL (70-99) 135 mg/dL (70-99) Calcium Level 7.5 mg/dL (8.5-10.1) 7.9 mg/dL (8.5-10.1) Phosphorus Level 1.9 mg/dL (2.6-4.7) 3.3 mg/dL (2.6-4.7) Magnesium Level 1.8 mg/dL (1.8-2.4) 1.6 mg/dL (1.8-2.4) Triglycerides Level 97 mg/dL (0-150) Cholesterol Level 167 mg/dL (0-200) LDL Cholesterol, Calculated 81 mg/dL (0-100) VLDL Cholesterol, Calculated 19 mg/dL (0-40) Non-HDL Cholesterol Calculated 100 mg/dL (0-129) HDL Cholesterol 67 mg/dL (40-60) Cholesterol/HDL Ratio 2.5 Laboratory Tests Test 06/08/18 04:00 White Blood Count 6.4 x10^3/uL (4.0-11.0) Red Blood Count 3.78 x10^6/uL (3.50-5.40) Hemoglobin 11.7 g/dL (12.0-15.5) Hematocrit 34.7 % (36.0-47.0) Mean Corpuscular Volume 92 fL (79-100) Mean Corpuscular Hemoglobin 31 pg (25-35) Mean Corpuscular Hemoglobin Concent 34 g/dL (31-37) Red Cell Distribution Width 17.2 % (11.5-14.5) Platelet Count 119 x10^3/uL (140-400) Neutrophils (%) (Auto) 69 % (31-73) Lymphocytes (%) (Auto) 19 % (24-48) Monocytes (%) (Auto) 10 % (0-9) Eosinophils (%) (Auto) 2 % (0-3) Basophils (%) (Auto) 1 % (0-3) Neutrophils # (Auto) 4.4 x10^3uL (1.8-7.7) Lymphocytes # (Auto) 1.2 x10^3/uL (1.0-4.8) Monocytes # (Auto) 0.6 x10^3/uL (0.0-1.1) Eosinophils # (Auto) 0.1 x10^3/uL (0.0-0.7) Basophils # (Auto) 0.0 x10^3/uL (0.0-0.2) Sodium Level 141 mmol/L (136-145) Potassium Level 3.2 mmol/L (3.5-5.1) Chloride Level 104 mmol/L (98-107) Carbon Dioxide Level 28 mmol/L (21-32) Anion Gap 9 (6-14) Blood Urea Nitrogen 4 mg/dL (7-20) Creatinine 0.5 mg/dL (0.6-1.0) Estimated GFR (Cockcroft-Gault) 122.0 Glucose Level 135 mg/dL (70-99) Calcium Level 7.9 mg/dL (8.5-10.1) Phosphorus Level 3.3 mg/dL (2.6-4.7) Magnesium Level 1.6 mg/dL (1.8-2.4) Microbiology 06/05/18 Blood Culture - Preliminary, Resulted NO GROWTH AFTER 2 DAYS 06/05/18 Urine Culture - Preliminary, Resulted 06/05/18 Urine Culture Result 1 (CHARLEY) - Preliminary, Resulted Medications Current Medications Lorazepam (Ativan) 1 mg 1X ONCE IV Last administered on 06/05/18at 13:24; Start 06/05/18 at 13:15; Stop 06/05/18 at 13:22; Status DC Sodium Chloride 1,000 ml @ 1,000 mls/hr Q1H IV Last administered on 06/05/18at 13:23; Start 06/05/18 at 13:13; Stop 06/05/18 at 14:12; Status DC Potassium Chloride (Klor-Con) 40 meq 1X ONCE PO Last administered on at 14:49; Start 06/05/18 at 14:00; Stop 06/05/18 at 14:02; Status DC Ceftriaxone Sodium 50 ml @ 100 mls/hr 1X ONCE IV Last administered on at 14:49; Start 06/05/18 at 14:45; Stop 06/05/18 at 15:14; Status DC Magnesium Sulfate 50 ml @ 25 mls/hr 1X ONCE IV Last administered on 06/05/18at 15:37; Start 06/05/18 at 14:45; Stop 06/05/18 at 16:44; Status DC Sodium Chloride 1,000 ml @ 1,000 mls/hr 1X ONCE IV Last administered on at 15:39; Start 06/05/18 at 15:15; Stop 06/05/18 at 16:14; Status DC Ondansetron HCl (Zofran) 4 mg STK-MED ONCE .ROUTE ; Start 06/05/18 at 15:28; Stop 06/05/18 at 15:29; Status DC Ondansetron HCl (Zofran) 4 mg 1X ONCE IV Last administered on 06/05/18at 15:40 ; Start 06/05/18 at 15:45; Stop 06/05/18 at 15:46; Status DC Multivitamins 10 ml/Thiamine HCl 100 mg/Folic Acid 1 mg/Sodium Chloride 1,011.2 ml @ 1,000.088 mls/hr 1X ONCE IV Last administered on 06/05/18at 16:17; Start 06/05/18 at 16:15; Stop 06/05/18 at 17:17; Status DC Multivitamins (Thera M Plus) 1 tab DAILY PO Last administered on 06/06/18at 08: 32; Start 06/06/18 at 09:00; Stop 06/06/18 at 09:00; Status DC Folic Acid (Folic Acid) 1 mg DAILY PO Last administered on 06/06/18at 08:32; Start 06/06/18 at 09:00; Stop 06/06/18 at 09:00; Status DC Lorazepam (Ativan) 2 mg PRN Q1HR PRN IV For CIWA 8-14 Last administered on 06/08at 05:50; Start 06/05/18 at 17:15 Lorazepam (Ativan) 4 mg PRN Q1HR PRN IV For CIWA 15 or greater; Start 06/05/18 at 17:15 Lorazepam (Ativan) 1 mg BID PO Last administered on 06/08/18at 10:12; Start at 21:00 Enoxaparin Sodium (Lovenox Per Pharmacy Prophylaxis Dosing) 1 each PRN DAILY PRN MC SEE COMMENTS; Start 06/05/18 at 17:15; Stop 06/06/18 at 13:59; Status DC Potassium Chloride (Klor-Con) 40 meq 1X ONCE PO ; Start 06/05/18 at 17:15; Stop 06/05/18 at 17:17; Status DC Enoxaparin Sodium (Lovenox 40mg Syringe) 40 mg Q24H SQ Last administered on at 21:32; Start 06/05/18 at 18:00; Stop 06/06/18 at 07:44; Status DC Potassium Chloride/Water 100 ml @ 100 mls/hr Q1H IV Last administered on at 01:07; Start 06/05/18 at 21:00; Stop 06/06/18 at 00:59; Status DC Metoprolol Tartrate (Lopressor Vial) 5 mg Q6HRS IVP Last administered on at 06:10; Start 06/06/18 at 00:00; Stop 06/06/18 at 08:46; Status DC Metoprolol Tartrate (Lopressor Vial) 5 mg 1X ONCE IVP Last administered on at 21:29; Start 06/05/18 at 20:45; Stop 06/05/18 at 20:57; Status DC Nystatin (Nystop) 1 eric BID TP Last administered on 06/08/18at 09:00; Start at 21:00 Sodium Chloride 1,000 ml @ 150 mls/hr Q6H40M IV Last administered on at 06:18; Start 06/05/18 at 20:45; Stop 06/06/18 at 08:46; Status DC Enoxaparin Sodium (Lovenox 40mg Syringe) 40 mg Q12HR SQ Last administered on at 08:33; Start 06/06/18 at 09:00; Stop 06/06/18 at 13:52; Status DC Ceftriaxone Sodium 1 gm/ Dextrose 50 ml @ 100 mls/hr Q24H IV ; Start 06/06/18 at 08:45; Status UNV Magnesium Sulfate 50 ml @ 25 mls/hr 1X ONCE IV Last administered on 06/06/18at 10:22; Start 06/06/18 at 09:00; Stop 06/06/18 at 10:59; Status DC Multivitamins 10 ml/Thiamine HCl 100 mg/Folic Acid 1 mg/Sodium Chloride 1,011.2 ml @ 100 mls/ hr DAILY IV Last administered on 06/07/18at 08:41; Start at 09:00; Stop 06/08/18 at 09:17; Status DC Metoprolol Tartrate (Lopressor) 25 mg BID PO Last administered on 06/06/18at 10: 18; Start 06/06/18 at 09:00; Stop 06/06/18 at 11:03; Status DC Ceftriaxone Sodium (Rocephin) 1 gm Q24H IVP Last administered on 06/07/18at 10: 37; Start 06/06/18 at 09:00; Stop 06/07/18 at 10:59; Status DC Lactobacillus Rhamnosus (Culturelle) 1 cap BID PO Last administered on at 10:12; Start 06/06/18 at 09:00 Folic Acid (Folic Acid) 1 mg DAILY PO ; Start 06/11/18 at 09:00; Status Cancel Multivitamins (Thera M Plus) 1 tab DAILY PO ; Start 06/11/18 at 09:00 Metoprolol Tartrate (Lopressor) 25 mg Q8HRS PO Last administered on 06/07/18at 05:58; Start 06/06/18 at 14:00; Stop 06/07/18 at 09:10; Status DC Acetaminophen (Tylenol) 650 mg PRN Q6HRS PRN PO FEVER; Start 06/06/18 at 13:30 Ondansetron HCl (Zofran) 4 mg PRN Q6HRS PRN IV NAUSEA/VOMITING Last administered on 06/08/18at 10:13; Start 06/06/18 at 13:30 Morphine Sulfate (Morphine Sulfate) 2 mg PRN Q2HR PRN IV MODERATE TO SEVERE PAIN; Start 06/06/18 at 13:30 Tramadol HCl (Ultram) 50 mg PRN Q6HRS PRN PO MILD TO MODERATE PAIN; Start 06/06 at 13:30 Docusate Sodium (Colace) 100 mg PRN DAILY PRN PO CONSTIPATION; Start 06/06/18 at 13:30 Aspirin (Pawel Aspirin) 325 mg DAILYWBKFT PO ; Start 06/07/18 at 08:00; Stop at 08:00; Status DC Aspirin (Ecotrin) 81 mg DAILYWBKFT PO Last administered on 06/08/18at 10:13; Start 06/07/18 at 08:00 Apixaban (Eliquis) 5 mg BID PO Last administered on 06/08/18at 10:13; Start at 21:00 Info (Anti-Coagulation Monitoring By Pharmacy) 1 each PRN DAILY PRN MC SEE COMMENTS Last administered on 06/07/18at 12:44; Start 06/06/18 at 14:00 Potassium Chloride (Klor-Con) 40 meq 1X ONCE PO Last administered on at 08:41; Start 06/07/18 at 08:00; Stop 06/07/18 at 08:01; Status DC Metoprolol Tartrate (Lopressor) 25 mg Q6HRS PO Last administered on 06/08/18at 05:50; Start 06/07/18 at 12:00 Metoprolol Tartrate (Lopressor Vial) 5 mg 1X ONCE IVP Last administered on at 10:37; Start 06/07/18 at 10:30; Stop 06/07/18 at 10:31; Status DC Potassium Phosphate 10 mmol/ Dextrose 103.3333 ml @ 51.667 m... Q2H IV Last administered on 06/07/18at 12:50; Start 06/07/18 at 11:00; Stop 06/07/18 at 14:59 ; Status DC Amoxicillin/ Clavulanate Potassium (Augmentin 875/ 125mg) 1 tab BID PO Last administered on 06/07/18at 21:13; Start 06/07/18 at 14:00; Stop 06/08/18 at 07:39 ; Status DC Calcium Chloride 1000 mg/Dextrose 60 ml @ 120 mls/hr 1X ONCE IV ; Start at 17:45; Stop 06/07/18 at 18:14; Status UNV Calcium Chloride 1000 mg/Sodium Chloride 60 ml @ 120 mls/hr 1X ONCE IV ; Start 06/07/18 at 18:30; Stop 06/07/18 at 18:59; Status Cancel Albuterol/ Ipratropium (Duoneb) 3 ml RTQID NEB Last administered on 06/08/18at 11:12; Start 06/07/18 at 17:45 Calcium Gluconate 1000 mg/Sodium Chloride 60 ml @ 120 mls/hr 1X ONCE IV Last administered on 06/07/18at 18:02; Start 06/07/18 at 18:00; Stop 06/07/18 at 18:29 ; Status DC Ceftriaxone Sodium 1 gm/ Dextrose 50 ml @ 100 mls/hr Q24H IV ; Start 06/08/18 at 07:45; Status UNV Ceftriaxone Sodium (Rocephin) 1 gm Q24H IVP Last administered on 06/08/18at 10: 14; Start 06/08/18 at 09:00 Folic Acid (Folic Acid) 1 mg DAILY PO Last administered on 06/08/18at 10:17; Start 06/08/18 at 10:00 Thiamine Mononitrate (Vitamin B-1) 100 mg DAILY PO Last administered on at 10:17; Start 06/08/18 at 10:00 Active Scripts Active Reported Multivitamins (Multivitamin) 1 Each Tablet Unknown Dose PO DAILY Calcium (Calcium Carbonate) 500 Mg Tablet 500 Mg PO Fluoxetine Hcl 10 Mg Capsule 1 Cap PO DAILY Amlodipine Besylate 10 Mg Tablet 10 Mg PO DAILY Atenolol 50 Mg Tablet 1 Tab PO DAILY Vitals/I & O Vital Sign - Last 24 Hours 06/07/18 06/07/18 06/07/18 06/07/18 15:00 15:36 16:55 18:21 Temp 98.4 98.4 Pulse 114 114 123 B/P (MAP) 148/95 (112) 157/97 145/98 Pulse Ox 90 93 O2 Delivery Nasal Cannula BiPAP/CPAP O2 Flow Rate 5.0 06/07/18 06/07/18 06/07/18 06/07/18 19:20 19:30 20:19 21:16 Temp 98.1 98.1 Pulse 120 Resp 20 B/P (MAP) 175/91 (119) Pulse Ox 93 96 94 O2 Delivery BiPAP/CPAP Bi-pap BiPAP/CPAP BiPAP/CPAP 06/07/18 06/07/18 06/08/18 06/08/18 23:20 23:28 02:28 03:14 Temp 98.2 98.8 98.2 98.8 Pulse 119 111 Resp 20 28 B/P (MAP) 142/72 (95) 157/102 (120) Pulse Ox 96 94 90 95 O2 Delivery BiPAP/CPAP BiPAP/CPAP Venturi Mask BiPAP/CPAP O2 Flow Rate 15.0 06/08/18 06/08/18 06/08/18 06/08/18 05:50 07:00 07:27 08:00 Temp 98.5 98.5 Pulse 111 114 Resp 32 B/P (MAP) 157/102 167/102 (123) Pulse Ox 96 94 O2 Delivery BiPAP/CPAP BiPAP/CPAP Nasal Cannula O2 Flow Rate 15.0 6.0 06/08/18 06/08/18 11:00 11:12 Temp 98.9 98.9 Pulse 115 Resp 28 B/P (MAP) 174/95 (121) Pulse Ox 90 91 O2 Delivery Nasal Cannula Nasal Cannula O2 Flow Rate 5.0 6.0 Intake and Output 06/07/18 06/07/18 06/08/18 15:00 23:00 07:00 Intake Total 780 ml 300 ml 700 ml Output Total 900 ml 650 ml 3275 ml Balance -120 ml -350 ml -2575 ml HUGO JOHNSON MD Jun 08, 2018 12:47
[2018-06-08] MEDS ORDERED: amLODIPine BESYLATE 10 MG TABLET PO SCH (13:00)
[2018-06-08 15:20] VITALS: BP 167/99
[2018-06-08 19:00] VITALS: BP 170/98
[2018-06-08 22:44] VITALS: BP 166/87
[2018-06-09 07:00] VITALS: BP 139/68
--- NOTE | 2018-06-09 07:51 | PDOC ---
Infectious Disease Note Subjective: Subjective Pt says feels ok some cough no nausea or abdo pain ROS: ROS Negative except for above. Vital Signs: Vital Signs Vital Signs Date Time Temp Pulse Resp B/P (MAP) Pulse Ox O2 Delivery O2 Flow Rate FiO2 06/09/18 05:28 93 BiPAP/CPAP 06/09/18 03:00 98.3 130 20 5.0 98.3 Physical Exam: PHYSICAL EXAM GENERAL: Alert, awake HEENT: Normocephalic, atraumatic. Anicteric. Poor dentition. No thrush. Oral mucosa moist. NECK: Supple. LUNGS: bl base crackles HEART: S1, S2, ABDOMEN: Soft, nontender, nondistended. Bowel sounds present. catheter in place EXTREMITIES: No edema, no cyanosis, no clubbing. NEUROLOGIC: Alert and oriented x 3. Grossly nonfocal. PSYCHIATRIC: Slightly anxious, mood normal, cooperative. Medications: Inpatient Meds: Current Medications Medications (Trade) Dose Ordered Sig/Frannie Start Time Stop Time Status Last Admin Dose Admin Acetaminophen (Tylenol) 650 mg PRN Q6HRS PRN 06/06/18 13:30 Albuterol/ Ipratropium (Duoneb) 3 ml RTQID 06/07/18 17:45 06/08/18 19:34 3 ML Amlodipine Besylate (Norvasc) 10 mg DAILY 06/08/18 13:00 06/08/18 14:41 DC 06/08/18 13:30 10 MG Amoxicillin/ Clavulanate Potassium (Augmentin 875/ 125mg) 1 tab BID 06/07/18 14:00 06/08/18 07:39 DC 06/07/18 21:13 1 TAB Apixaban (Eliquis) 5 mg BID 06/06/18 21:00 06/08/18 21:44 5 MG Aspirin (Pawel Aspirin) 325 mg DAILYWBKFT 06/07/18 08:00 06/07/18 08:00 DC Aspirin (Ecotrin) 81 mg DAILYWBKFT 06/07/18 08:00 06/08/18 10:13 81 MG Calcium Chloride 1000 mg/Dextrose 60 ml @ 120 mls/hr 1X ONCE 06/07/18 17:45 06/07/18 18:14 UNV Calcium Chloride 1000 mg/Sodium Chloride 60 ml @ 120 mls/hr 1X ONCE 06/07/18 18:30 06/07/18 18:59 Cancel Calcium Gluconate 1000 mg/Sodium Chloride 60 ml @ 120 mls/hr 1X ONCE 06/07/18 18:00 06/07/18 18:29 DC 06/07/18 18:02 120 MLS/HR Ceftriaxone Sodium 1 gm/ Dextrose 50 ml @ 100 mls/hr Q24H 06/08/18 07:45 UNV Ceftriaxone Sodium (Rocephin) 1 gm Q24H 06/08/18 09:00 06/08/18 10:14 1 GM Diltiazem HCl (Cardizem 24hr Cd) 240 mg DAILY 06/08/18 14:45 06/08/18 15:52 240 MG Docusate Sodium (Colace) 100 mg PRN DAILY PRN 06/06/18 13:30 Enoxaparin Sodium (Lovenox 40mg Syringe) 40 mg Q12HR 06/06/18 09:00 06/06/18 13:52 DC 06/06/18 08:33 40 MG Enoxaparin Sodium (Lovenox Per Pharmacy Prophylaxis Dosing) 1 each PRN DAILY PRN 06/05/18 17:15 06/06/18 13:59 DC Folic Acid (Folic Acid) 1 mg DAILY 06/08/18 10:00 06/08/18 10:17 1 MG Furosemide (Lasix) 40 mg DAILY 06/09/18 09:00 Info (Anti-Coagulation Monitoring By Pharmacy) 1 each PRN DAILY PRN 06/06/18 14:00 06/07/18 12:44 1 EACH Lactobacillus Rhamnosus (Culturelle) 1 cap BID 06/06/18 09:00 06/08/18 21:44 1 CAP Lorazepam (Ativan) 1 mg BID 06/05/18 21:00 06/08/18 21:44 1 MG Magnesium Sulfate 50 ml @ 25 mls/hr 1X ONCE 06/08/18 12:45 06/08/18 14:44 DC 06/08/18 13:32 25 MLS/HR Metoprolol Tartrate (Lopressor Vial) 5 mg 1X ONCE 06/07/18 10:30 06/07/18 10:31 DC 06/07/18 10:37 5 MG Metoprolol Tartrate (Lopressor) 25 mg Q6HRS 06/07/18 12:00 06/08/18 14:41 DC 06/08/18 13:31 25 MG Morphine Sulfate (Morphine Sulfate) 2 mg PRN Q2HR PRN 06/06/18 13:30 Multivitamins (Thera M Plus) 1 tab DAILY 06/11/18 09:00 Multivitamins 10 ml/Thiamine HCl 100 mg/Folic Acid 1 mg/Sodium Chloride 1,011.2 ml @ 100 mls/ hr DAILY 06/06/18 09:00 06/08/18 09:17 DC 06/07/18 08:41 100 MLS/HR Nystatin (Nystop) 1 eric BID 06/05/18 21:00 06/08/18 21:44 1 ERIC Ondansetron HCl (Zofran) 4 mg PRN Q6HRS PRN 06/06/18 13:30 06/08/18 21:45 4 MG Potassium Chloride/Water 100 ml @ 100 mls/hr Q1H 06/05/18 21:00 06/06/18 00:59 DC 06/06/18 01:07 100 MLS/HR Potassium Phosphate 10 mmol/ Dextrose 103.3333 ml @ 51.667 m... Q2H 06/07/18 11:00 06/07/18 14:59 DC 06/07/18 12:50 51.667 MLS/HR Potassium Chloride (Klor-Con) 40 meq 1X ONCE 06/08/18 12:45 06/08/18 12:46 DC 06/08/18 13:30 40 MEQ Sodium Chloride 1,000 ml @ 150 mls/hr Q6H40M 06/05/18 20:45 06/06/18 08:46 DC 06/06/18 06:18 150 MLS/HR Thiamine Mononitrate (Vitamin B-1) 100 mg DAILY 06/08/18 10:00 06/08/18 10:17 100 MG Tramadol HCl (Ultram) 50 mg PRN Q6HRS PRN 06/06/18 13:30 06/08/18 21:44 50 MG Labs: Micro RUN DATE: 06/08/18 PAGE 1 RUN TIME: 0420 [facility] [address] [place] [address] Rinku Armstrong M.D., Otolaryngology Teacher PATIENT: ARNOLD SORENSON ACCT: [id number] LOC: 2 [facility] U : [id number] AGE/SX: 68/F ROOM: 246 REG : 06/05/[address]: RAMONE CAMARA MD : [id number] BED: 1 DIS : STATUS: ADM IN TLOC: SPEC #: [id number] MARKOS: 06/05/18 STATUS: RES REQ #: [id number] RECD: 06/05/[address]: MOON MANZANO APRN SOURCE: STRA CATH ENTR: 06/05/[address]: RADHA,STAFF SPDESC: STR CATH NO PCP ORDERED: URINE CULTURE Procedure Result URINE CULTURE Preliminary Preliminary report URINE CULTURE RES 1 Preliminary Escherichia coli Greater than 100,000 colony forming units per mL Performed at: DA - [facility] [address], [place], [place] [id number] Hot Stick Man: KARLOS Rojas MD, Phone: [phone] Objective: Assessment: 1. Lactic acidosis from acute etoh 2. Acute EtOH intoxication with EtOH encephalopathy. 3. Hypokalemia, hypomagnesemia. 4. Anxiety. 5. Nausea and vomiting, resolved. 6. Liver function test elevation from EtOH. 7. Pulm infiltrates likely aspiration 8. Ecoli on Urine c/s Plan: Plan of Care cont ceftriaxone Maintain aspiration precautions. CRIS MOBLEY MD Jun 09, 2018 07:51
[2018-06-09] MEDS: IPRATRPIUM/ALBUTEROL 0.5/2.5MG 3 ML NEBU. NEB SCH ×4 (08:17→19:17)
--- NOTE | 2018-06-09 08:43 | PDOC ---
PROGRESS NOTES Subjective Subjective Feels slightly better. Continues to be tachycardic. Objective Objective Vital Signs Date Time Temp Pulse Resp B/P (MAP) Pulse Ox O2 Delivery O2 Flow Rate FiO2 06/09/18 08:19 91 Nasal Cannula 5.0 06/09/18 03:00 98.3 130 20 98.3 Intake and Output 06/09/18 07:00 Intake Total 1880 ml Output Total 3050 ml Balance -1170 ml Intake Oral 1880 ml Output Urine Total 3050 ml Physical Exam Abdomen: Normal bowel sounds, Soft, No tenderness Heart: Other (IRRR; tele: atrial fib) Extremities: No edema General: Alert, Cooperative, No acute distress HEENT: Atraumatic Lungs: Clear to auscultation Neuro: Normal speech Psych/Mental Status: Mental status NL, Mood NL Skin: No rashes Assessment Assessment 1. Atrial fibrillation with RVR; in setting of hypomagnesemia and hypokalemia --new onset;, heart rate continues to be elevated --Replace K and Mg --TTE with preserved LVEF and mild aortic and mitral stenosis --Increase Cardizem dose for better rate control and continue eliquis for stroke prophylaxis 2. sepsis with UTI --defer to ID 3. ETOH intoxication with encephalopathy 4. HTN --Blood pressure continues to be elevated. Increase Cardizem dose as stated above Plan Plan of Care Problems Medical Problems: (1) Hypokalemia Status: Acute (2) Hypomagnesemia Status: Acute (3) Hypoxia Status: Acute (4) Sepsis Status: Acute (5) UTI (urinary tract infection) Status: Acute Comment Review of Relevant I have reviewed the following items caro (where applicable) has been applied. Labs Microbiology 06/05/18 Blood Culture - Preliminary, Resulted NO GROWTH AFTER 3 DAYS 06/05/18 Urine Culture - Preliminary, Resulted 06/05/18 Urine Culture Result 1 (CHARLEY) - Preliminary, Resulted Medications Current Medications Amlodipine Besylate (Norvasc) 10 mg DAILY PO Last administered on 06/08/18at 13: 30; Start 06/08/18 at 13:00; Stop 06/08/18 at 14:41; Status DC Ceftriaxone Sodium (Rocephin) 1 gm Q24H IVP Last administered on 06/08/18at 10: 14; Start 06/08/18 at 09:00 Diltiazem HCl (Cardizem 24hr Cd) 240 mg DAILY PO Last administered on at 15:52; Start 06/08/18 at 14:45 Folic Acid (Folic Acid) 1 mg DAILY PO Last administered on 06/08/18at 10:17; Start 06/08/18 at 10:00 Folic Acid (Folic Acid) 1 mg DAILY PO ; Start 06/11/18 at 09:00; Status Cancel Furosemide (Lasix) 40 mg DAILY IVP ; Start 06/09/18 at 09:00 Magnesium Sulfate 50 ml @ 25 mls/hr 1X ONCE IV Last administered on 06/08/18at 13:32; Start 06/08/18 at 12:45; Stop 06/08/18 at 14:44; Status DC Multivitamins (Thera M Plus) 1 tab DAILY PO ; Start 06/11/18 at 09:00 Potassium Chloride (Klor-Con) 40 meq 1X ONCE PO Last administered on at 13:30; Start 06/08/18 at 12:45; Stop 06/08/18 at 12:46; Status DC Thiamine Mononitrate (Vitamin B-1) 100 mg DAILY PO Last administered on at 10:17; Start 06/08/18 at 10:00 Vitals/I & O Vital Sign - Last 24 Hours 06/08/18 06/08/18 06/08/18 06/08/18 11:00 11:12 13:30 13:31 Temp 98.9 98.9 Pulse 115 115 115 Resp 28 B/P (MAP) 174/95 (121) 174/95 174/95 Pulse Ox 90 91 O2 Delivery Nasal Cannula Nasal Cannula O2 Flow Rate 5.0 6.0 06/08/18 06/08/18 06/08/18 06/08/18 15:20 15:28 15:52 19:00 Temp 98.5 98.4 98.5 98.4 Pulse 109 109 115 Resp 26 20 B/P (MAP) 167/99 (121) 167/99 170/98 (122) Pulse Ox 90 88 94 O2 Delivery Nasal Cannula Nasal Cannula Nasal Cannula O2 Flow Rate 5.0 6.0 5.0 06/08/18 06/08/18 06/08/18 06/08/18 19:36 20:15 21:44 22:44 Temp 98.2 98.2 Pulse 86 Resp 22 18 B/P (MAP) 166/87 (113) Pulse Ox 92 92 97 O2 Delivery BiPAP/CPAP Nasal Cannula Nasal Cannula Nasal Cannula O2 Flow Rate 6.0 6.0 5.0 06/08/18 06/09/18 06/09/18 06/09/18 22:44 00:00 02:30 03:00 Temp 98.3 98.3 Pulse 130 Resp 20 20 B/P (MAP) Pulse Ox 95 92 92 98 O2 Delivery BiPAP/CPAP BiPAP/CPAP BiPAP/CPAP Nasal Cannula O2 Flow Rate 5.0 06/09/18 06/09/18 05:28 08:19 Pulse Ox 93 91 O2 Delivery BiPAP/CPAP Nasal Cannula O2 Flow Rate 5.0 Intake and Output 06/08/18 06/08/18 06/09/18 15:00 23:00 07:00 Intake Total 320 ml 1560 ml Output Total 2050 ml 1000 ml Balance 320 ml -490 ml -1000 ml EVI MENG MD Jun 09, 2018 08:43
[2018-06-09] MEDS: NYSTATIN TOPICAL POWDER 15GM BOTTLE. TP SCH ×2 (09:00→21:00)
[2018-06-09] MEDS: ASPIRIN ENTERIC COATED 81 MG TABLET.DR. PO SCH (09:19)
[2018-06-09] MEDS: APIXABAN 5 MG TABLET. PO SCH ×2 (09:19→20:27)
[2018-06-09] MEDS: LORazepam 1 MG TABLET PO SCH ×2 (09:19→20:27)
[2018-06-09] MEDS: THIAMINE 100 MG TABLET. PO SCH (09:19)
[2018-06-09] MEDS: FUROSEMIDE 40 MG/4 ML VIAL. IVP SCH (09:20)
[2018-06-09] MEDS: LACTOBACILLUS RHAMNOSUS GG 1 CAPSULE. PO SCH ×2 (09:20→20:27)
[2018-06-09] MEDS: FOLIC ACID 1 MG TABLET. PO SCH (09:20)
[2018-06-09] MEDS: cefTRIAXone IV Push 1 GM VIAL. IVP SCH (09:35)
[2018-06-09 10:39] LABS: BASO % 1 % (0-3); EOS # 0.1 x10^3/uL (0.0-0.7); EOS % 2 % (0-3); HEMOGLOBIN 12.8 g/dL (12.0-15.5); LYMPH # 1.2 x10^3/uL (1.0-4.8); LYMPH % 19 % (24-48); MEAN CORPUSCULAR HEMOGLOBIN 31 pg (25-35); MEAN CORPUSCULAR HGB CONC 34 g/dL (31-37); MEAN CORPUSCULAR VOLUME 92 fL (79-100); MONO # 0.6 x10^3/uL (0.0-1.1); MONO % 10 % (0-9); NEUT # 4.4 x10^3uL (1.8-7.7); NEUT % 69 % (31-73); PLATELET COUNT 132 x10^3/uL (140-400); RED BLOOD COUNT 4.14 x10^6/uL (3.50-5.40); WHITE BLOOD COUNT 6.3 x10^3/uL (4.0-11.0)
[2018-06-09 10:52] LABS: CALCIUM 9.2 mg/dL (8.5-10.1); CREATININE 0.6 mg/dL (0.6-1.0); GFR 98.8; POTASSIUM 3.3 mmol/L (3.5-5.1)
[2018-06-09] MEDS ORDERED: METOPROLOL TARTRATE 5 MG/5 ML VIAL. IVP ONE (11:00)
[2018-06-09 11:06] VITALS: BP 179/81
--- NOTE | 2018-06-09 11:52 | PDOC ---
PULMONARY PROGRESS NOTES Subjective NO soa Vitals Vital Signs Date Time Temp Pulse Resp B/P (MAP) Pulse Ox O2 Delivery O2 Flow Rate FiO2 06/09/18 11:22 120 179/81 06/09/18 11:06 98.2 10 93 Nasal Cannula 5.0 98.2 General: Alert, No acute distress Lungs: Clear Cardiovascular: S1 Abdomen: Soft Neuro Exam: Alert Extremities: Other (1+edema) Labs Laboratory Tests Test 06/08/18 04:00 06/09/18 10:15 White Blood Count 6.4 x10^3/uL (4.0-11.0) 6.3 x10^3/uL (4.0-11.0) Red Blood Count 3.78 x10^6/uL (3.50-5.40) 4.14 x10^6/uL (3.50-5.40) Hemoglobin 11.7 g/dL (12.0-15.5) 12.8 g/dL (12.0-15.5) Hematocrit 34.7 % (36.0-47.0) 38.0 % (36.0-47.0) Mean Corpuscular Volume 92 fL (79-100) 92 fL (79-100) Mean Corpuscular Hemoglobin 31 pg (25-35) 31 pg (25-35) Mean Corpuscular Hemoglobin Concent 34 g/dL (31-37) 34 g/dL (31-37) Red Cell Distribution Width 17.2 % (11.5-14.5) 17.0 % (11.5-14.5) Platelet Count 119 x10^3/uL (140-400) 132 x10^3/uL (140-400) Neutrophils (%) (Auto) 69 % (31-73) 69 % (31-73) Lymphocytes (%) (Auto) 19 % (24-48) 19 % (24-48) Monocytes (%) (Auto) 10 % (0-9) 10 % (0-9) Eosinophils (%) (Auto) 2 % (0-3) 2 % (0-3) Basophils (%) (Auto) 1 % (0-3) 1 % (0-3) Neutrophils # (Auto) 4.4 x10^3uL (1.8-7.7) 4.4 x10^3uL (1.8-7.7) Lymphocytes # (Auto) 1.2 x10^3/uL (1.0-4.8) 1.2 x10^3/uL (1.0-4.8) Monocytes # (Auto) 0.6 x10^3/uL (0.0-1.1) 0.6 x10^3/uL (0.0-1.1) Eosinophils # (Auto) 0.1 x10^3/uL (0.0-0.7) 0.1 x10^3/uL (0.0-0.7) Basophils # (Auto) 0.0 x10^3/uL (0.0-0.2) 0.0 x10^3/uL (0.0-0.2) Sodium Level 141 mmol/L (136-145) 139 mmol/L (136-145) Potassium Level 3.2 mmol/L (3.5-5.1) 3.3 mmol/L (3.5-5.1) Chloride Level 104 mmol/L (98-107) 99 mmol/L (98-107) Carbon Dioxide Level 28 mmol/L (21-32) 29 mmol/L (21-32) Anion Gap 9 (6-14) 11 (6-14) Blood Urea Nitrogen 4 mg/dL (7-20) 7 mg/dL (7-20) Creatinine 0.5 mg/dL (0.6-1.0) 0.6 mg/dL (0.6-1.0) Estimated GFR (Cockcroft-Gault) 122.0 98.8 Glucose Level 135 mg/dL (70-99) 217 mg/dL (70-99) Calcium Level 7.9 mg/dL (8.5-10.1) 9.2 mg/dL (8.5-10.1) Phosphorus Level 3.3 mg/dL (2.6-4.7) Magnesium Level 1.6 mg/dL (1.8-2.4) Laboratory Tests Test 06/09/18 10:15 White Blood Count 6.3 x10^3/uL (4.0-11.0) Red Blood Count 4.14 x10^6/uL (3.50-5.40) Hemoglobin 12.8 g/dL (12.0-15.5) Hematocrit 38.0 % (36.0-47.0) Mean Corpuscular Volume 92 fL (79-100) Mean Corpuscular Hemoglobin 31 pg (25-35) Mean Corpuscular Hemoglobin Concent 34 g/dL (31-37) Red Cell Distribution Width 17.0 % (11.5-14.5) Platelet Count 132 x10^3/uL (140-400) Neutrophils (%) (Auto) 69 % (31-73) Lymphocytes (%) (Auto) 19 % (24-48) Monocytes (%) (Auto) 10 % (0-9) Eosinophils (%) (Auto) 2 % (0-3) Basophils (%) (Auto) 1 % (0-3) Neutrophils # (Auto) 4.4 x10^3uL (1.8-7.7) Lymphocytes # (Auto) 1.2 x10^3/uL (1.0-4.8) Monocytes # (Auto) 0.6 x10^3/uL (0.0-1.1) Eosinophils # (Auto) 0.1 x10^3/uL (0.0-0.7) Basophils # (Auto) 0.0 x10^3/uL (0.0-0.2) Sodium Level 139 mmol/L (136-145) Potassium Level 3.3 mmol/L (3.5-5.1) Chloride Level 99 mmol/L (98-107) Carbon Dioxide Level 29 mmol/L (21-32) Anion Gap 11 (6-14) Blood Urea Nitrogen 7 mg/dL (7-20) Creatinine 0.6 mg/dL (0.6-1.0) Estimated GFR (Cockcroft-Gault) 98.8 Glucose Level 217 mg/dL (70-99) Calcium Level 9.2 mg/dL (8.5-10.1) Medications Active Scripts Medications Dose Route/Sig Max Daily Dose Days Date Category Multivitamins (Multivitamin) 1 Each Tablet Unknown Dose PO DAILY 06/06/18 Reported Calcium (Calcium Carbonate) 500 Mg Tablet 500 Mg PO 06/06/18 Reported Fluoxetine Hcl 10 Mg Capsule 1 Cap PO DAILY 06/06/18 Reported Amlodipine Besylate 10 Mg Tablet 10 Mg PO DAILY 06/06/18 Reported Atenolol 50 Mg Tablet 1 Tab PO DAILY 06/06/18 Reported Impression . 1. Abnormal CT chest with right upper and right lower lobe infiltrates. Cannot exclude the possibility of aspiration pneumonia due to alcohol intoxication. 2. No significant history of tobacco use. 3. Alcohol dependence with intoxication. 4. Hypomagnesemia. 5. A 4 cm left adrenal mass. Plan . 1. oral Augmentin. 2. oxygen./ PRN BIPAP. keep sat @92% 3. She is counseled regarding alcohol cessation. 4. Watch for withdrawal. 5. P.r.n. benzodiazepine. 6. Eliquis per PCP. 7. She would need a PET scan as an outpatient to assess for hypermetabolic adrenal mass. JUSTINE PACKER MD Jun 09, 2018 11:52
--- NOTE | 2018-06-09 13:42 | PDOC ---
PROGRESS NOTES Chief Complaint Chief Complaint AMS, metabolic encephalopathy Acute EtOH intoxication, EtOH encephalopathy possible UTI and CAP possible sepsis lactate acidosis dehydration rapid AFIB h/o stroke wo neuroligic deficit hypomagnesemia hypokalemia obesity, BMI 39 generalized weakness left adrenal mass fu with pcp hypokalemia hypophosphatemia hypomagnesemia plan: card, id , pulm fu restart ceftriaxone CT chest done showed possible pna switched metoprolol to cardizem as per card, still tachycardia, may need increase dose echo DONE dc ivf, repeat CXR showed possible pna and pulmanory edema, lasix 40mgiv x1 bipap at night, NC 5L repeat labs tmr, mag, catrina PTOT dvt ppx replete k, catrina, mag repeat CXR tmr History of Present Illness History of Present Illness FEELS better, LA DROP TO 0.8 still very weak, rapid afib , barely can walk with weakness heavy drinking for 1m, willing to stop after i talked to her pt appears more sob, but said no sob to me, on bipap overnight, now on NC 5l, slightly look better today, but still on NC 5L and tachycardia low k, catrina, mag Vitals Vitals Vital Signs Date Time Temp Pulse Resp B/P (MAP) Pulse Ox O2 Delivery O2 Flow Rate FiO2 06/09/18 12:08 Nasal Cannula 5.0 06/09/18 11:22 120 179/81 06/09/18 11:06 98.2 10 93 98.2 Physical Exam Physical Exam GENERAL: Alert, awake HEENT: Normocephalic, atraumatic. Anicteric. Poor dentition. No thrush. Oral mucosa moist. NECK: Supple. LUNGS: bl base crackles HEART: S1, S2, ABDOMEN: Soft, nontender, nondistended. Bowel sounds present. catheter in place EXTREMITIES: No edema, no cyanosis, no clubbing. NEUROLOGIC: Alert and oriented x 3. Grossly nonfocal. PSYCHIATRIC: Slightly anxious, mood normal, cooperative. General: Alert, Cooperative, No acute distress Heart: Other (IRRR; tele: atrial fib) Lungs: Crackles (bl mild) Abdomen: Normal bowel sounds, Soft, No tenderness Extremities: No edema Skin: No rashes Labs LABS Laboratory Tests Test 06/09/18 10:15 White Blood Count 6.3 x10^3/uL (4.0-11.0) Red Blood Count 4.14 x10^6/uL (3.50-5.40) Hemoglobin 12.8 g/dL (12.0-15.5) Hematocrit 38.0 % (36.0-47.0) Mean Corpuscular Volume 92 fL (79-100) Mean Corpuscular Hemoglobin 31 pg (25-35) Mean Corpuscular Hemoglobin Concent 34 g/dL (31-37) Red Cell Distribution Width 17.0 % (11.5-14.5) Platelet Count 132 x10^3/uL (140-400) Neutrophils (%) (Auto) 69 % (31-73) Lymphocytes (%) (Auto) 19 % (24-48) Monocytes (%) (Auto) 10 % (0-9) Eosinophils (%) (Auto) 2 % (0-3) Basophils (%) (Auto) 1 % (0-3) Neutrophils # (Auto) 4.4 x10^3uL (1.8-7.7) Lymphocytes # (Auto) 1.2 x10^3/uL (1.0-4.8) Monocytes # (Auto) 0.6 x10^3/uL (0.0-1.1) Eosinophils # (Auto) 0.1 x10^3/uL (0.0-0.7) Basophils # (Auto) 0.0 x10^3/uL (0.0-0.2) Sodium Level 139 mmol/L (136-145) Potassium Level 3.3 mmol/L (3.5-5.1) Chloride Level 99 mmol/L (98-107) Carbon Dioxide Level 29 mmol/L (21-32) Anion Gap 11 (6-14) Blood Urea Nitrogen 7 mg/dL (7-20) Creatinine 0.6 mg/dL (0.6-1.0) Estimated GFR (Cockcroft-Gault) 98.8 Glucose Level 217 mg/dL (70-99) Calcium Level 9.2 mg/dL (8.5-10.1) Assessment and Plan Assessmemt and Plan Problems Medical Problems: (1) Hypokalemia Status: Acute (2) Hypomagnesemia Status: Acute (3) Hypoxia Status: Acute (4) Sepsis Status: Acute (5) UTI (urinary tract infection) Status: Acute Comment Review of Relevant I have reviewed the following items caro (where applicable) has been applied. Labs Laboratory Tests Test 06/08/18 04:00 06/09/18 10:15 White Blood Count 6.4 x10^3/uL (4.0-11.0) 6.3 x10^3/uL (4.0-11.0) Red Blood Count 3.78 x10^6/uL (3.50-5.40) 4.14 x10^6/uL (3.50-5.40) Hemoglobin 11.7 g/dL (12.0-15.5) 12.8 g/dL (12.0-15.5) Hematocrit 34.7 % (36.0-47.0) 38.0 % (36.0-47.0) Mean Corpuscular Volume 92 fL (79-100) 92 fL (79-100) Mean Corpuscular Hemoglobin 31 pg (25-35) 31 pg (25-35) Mean Corpuscular Hemoglobin Concent 34 g/dL (31-37) 34 g/dL (31-37) Red Cell Distribution Width 17.2 % (11.5-14.5) 17.0 % (11.5-14.5) Platelet Count 119 x10^3/uL (140-400) 132 x10^3/uL (140-400) Neutrophils (%) (Auto) 69 % (31-73) 69 % (31-73) Lymphocytes (%) (Auto) 19 % (24-48) 19 % (24-48) Monocytes (%) (Auto) 10 % (0-9) 10 % (0-9) Eosinophils (%) (Auto) 2 % (0-3) 2 % (0-3) Basophils (%) (Auto) 1 % (0-3) 1 % (0-3) Neutrophils # (Auto) 4.4 x10^3uL (1.8-7.7) 4.4 x10^3uL (1.8-7.7) Lymphocytes # (Auto) 1.2 x10^3/uL (1.0-4.8) 1.2 x10^3/uL (1.0-4.8) Monocytes # (Auto) 0.6 x10^3/uL (0.0-1.1) 0.6 x10^3/uL (0.0-1.1) Eosinophils # (Auto) 0.1 x10^3/uL (0.0-0.7) 0.1 x10^3/uL (0.0-0.7) Basophils # (Auto) 0.0 x10^3/uL (0.0-0.2) 0.0 x10^3/uL (0.0-0.2) Sodium Level 141 mmol/L (136-145) 139 mmol/L (136-145) Potassium Level 3.2 mmol/L (3.5-5.1) 3.3 mmol/L (3.5-5.1) Chloride Level 104 mmol/L (98-107) 99 mmol/L (98-107) Carbon Dioxide Level 28 mmol/L (21-32) 29 mmol/L (21-32) Anion Gap 9 (6-14) 11 (6-14) Blood Urea Nitrogen 4 mg/dL (7-20) 7 mg/dL (7-20) Creatinine 0.5 mg/dL (0.6-1.0) 0.6 mg/dL (0.6-1.0) Estimated GFR (Cockcroft-Gault) 122.0 98.8 Glucose Level 135 mg/dL (70-99) 217 mg/dL (70-99) Calcium Level 7.9 mg/dL (8.5-10.1) 9.2 mg/dL (8.5-10.1) Phosphorus Level 3.3 mg/dL (2.6-4.7) Magnesium Level 1.6 mg/dL (1.8-2.4) Laboratory Tests Test 06/09/18 10:15 White Blood Count 6.3 x10^3/uL (4.0-11.0) Red Blood Count 4.14 x10^6/uL (3.50-5.40) Hemoglobin 12.8 g/dL (12.0-15.5) Hematocrit 38.0 % (36.0-47.0) Mean Corpuscular Volume 92 fL (79-100) Mean Corpuscular Hemoglobin 31 pg (25-35) Mean Corpuscular Hemoglobin Concent 34 g/dL (31-37) Red Cell Distribution Width 17.0 % (11.5-14.5) Platelet Count 132 x10^3/uL (140-400) Neutrophils (%) (Auto) 69 % (31-73) Lymphocytes (%) (Auto) 19 % (24-48) Monocytes (%) (Auto) 10 % (0-9) Eosinophils (%) (Auto) 2 % (0-3) Basophils (%) (Auto) 1 % (0-3) Neutrophils # (Auto) 4.4 x10^3uL (1.8-7.7) Lymphocytes # (Auto) 1.2 x10^3/uL (1.0-4.8) Monocytes # (Auto) 0.6 x10^3/uL (0.0-1.1) Eosinophils # (Auto) 0.1 x10^3/uL (0.0-0.7) Basophils # (Auto) 0.0 x10^3/uL (0.0-0.2) Sodium Level 139 mmol/L (136-145) Potassium Level 3.3 mmol/L (3.5-5.1) Chloride Level 99 mmol/L (98-107) Carbon Dioxide Level 29 mmol/L (21-32) Anion Gap 11 (6-14) Blood Urea Nitrogen 7 mg/dL (7-20) Creatinine 0.6 mg/dL (0.6-1.0) Estimated GFR (Cockcroft-Gault) 98.8 Glucose Level 217 mg/dL (70-99) Calcium Level 9.2 mg/dL (8.5-10.1) Microbiology 06/05/18 Blood Culture - Preliminary, Resulted NO GROWTH AFTER 3 DAYS 06/05/18 Urine Culture - Final, Complete 06/05/18 Urine Culture Result 1 (CHARLEY) - Final, Complete 06/05/18 Antimicrobic Susceptibility - Final, Complete Medications Current Medications Lorazepam (Ativan) 1 mg 1X ONCE IV Last administered on 06/05/18at 13:24; Start 06/05/18 at 13:15; Stop 06/05/18 at 13:22; Status DC Sodium Chloride 1,000 ml @ 1,000 mls/hr Q1H IV Last administered on 06/05/18at 13:23; Start 06/05/18 at 13:13; Stop 06/05/18 at 14:12; Status DC Potassium Chloride (Klor-Con) 40 meq 1X ONCE PO Last administered on at 14:49; Start 06/05/18 at 14:00; Stop 06/05/18 at 14:02; Status DC Ceftriaxone Sodium 50 ml @ 100 mls/hr 1X ONCE IV Last administered on at 14:49; Start 06/05/18 at 14:45; Stop 06/05/18 at 15:14; Status DC Magnesium Sulfate 50 ml @ 25 mls/hr 1X ONCE IV Last administered on 06/05/18at 15:37; Start 06/05/18 at 14:45; Stop 06/05/18 at 16:44; Status DC Sodium Chloride 1,000 ml @ 1,000 mls/hr 1X ONCE IV Last administered on at 15:39; Start 06/05/18 at 15:15; Stop 06/05/18 at 16:14; Status DC Ondansetron HCl (Zofran) 4 mg STK-MED ONCE .ROUTE ; Start 06/05/18 at 15:28; Stop 06/05/18 at 15:29; Status DC Ondansetron HCl (Zofran) 4 mg 1X ONCE IV Last administered on 06/05/18at 15:40 ; Start 06/05/18 at 15:45; Stop 06/05/18 at 15:46; Status DC Multivitamins 10 ml/Thiamine HCl 100 mg/Folic Acid 1 mg/Sodium Chloride 1,011.2 ml @ 1,000.088 mls/hr 1X ONCE IV Last administered on 06/05/18at 16:17; Start 06/05/18 at 16:15; Stop 06/05/18 at 17:17; Status DC Multivitamins (Thera M Plus) 1 tab DAILY PO Last administered on 06/06/18at 08: 32; Start 06/06/18 at 09:00; Stop 06/06/18 at 09:00; Status DC Folic Acid (Folic Acid) 1 mg DAILY PO Last administered on 06/06/18at 08:32; Start 06/06/18 at 09:00; Stop 06/06/18 at 09:00; Status DC Lorazepam (Ativan) 2 mg PRN Q1HR PRN IV For CIWA 8-14 Last administered on 06/08at 05:50; Start 06/05/18 at 17:15 Lorazepam (Ativan) 4 mg PRN Q1HR PRN IV For CIWA 15 or greater; Start 06/05/18 at 17:15 Lorazepam (Ativan) 1 mg BID PO Last administered on 06/09/18at 09:19; Start at 21:00 Enoxaparin Sodium (Lovenox Per Pharmacy Prophylaxis Dosing) 1 each PRN DAILY PRN MC SEE COMMENTS; Start 06/05/18 at 17:15; Stop 06/06/18 at 13:59; Status DC Potassium Chloride (Klor-Con) 40 meq 1X ONCE PO ; Start 06/05/18 at 17:15; Stop 06/05/18 at 17:17; Status DC Enoxaparin Sodium (Lovenox 40mg Syringe) 40 mg Q24H SQ Last administered on at 21:32; Start 06/05/18 at 18:00; Stop 06/06/18 at 07:44; Status DC Potassium Chloride/Water 100 ml @ 100 mls/hr Q1H IV Last administered on at 01:07; Start 06/05/18 at 21:00; Stop 06/06/18 at 00:59; Status DC Metoprolol Tartrate (Lopressor Vial) 5 mg Q6HRS IVP Last administered on at 06:10; Start 06/06/18 at 00:00; Stop 06/06/18 at 08:46; Status DC Metoprolol Tartrate (Lopressor Vial) 5 mg 1X ONCE IVP Last administered on at 21:29; Start 06/05/18 at 20:45; Stop 06/05/18 at 20:57; Status DC Nystatin (Nystop) 1 eric BID TP Last administered on 06/09/18at 09:00; Start at 21:00 Sodium Chloride 1,000 ml @ 150 mls/hr Q6H40M IV Last administered on at 06:18; Start 06/05/18 at 20:45; Stop 06/06/18 at 08:46; Status DC Enoxaparin Sodium (Lovenox 40mg Syringe) 40 mg Q12HR SQ Last administered on at 08:33; Start 06/06/18 at 09:00; Stop 06/06/18 at 13:52; Status DC Ceftriaxone Sodium 1 gm/ Dextrose 50 ml @ 100 mls/hr Q24H IV ; Start 06/06/18 at 08:45; Status UNV Magnesium Sulfate 50 ml @ 25 mls/hr 1X ONCE IV Last administered on 06/06/18at 10:22; Start 06/06/18 at 09:00; Stop 06/06/18 at 10:59; Status DC Multivitamins 10 ml/Thiamine HCl 100 mg/Folic Acid 1 mg/Sodium Chloride 1,011.2 ml @ 100 mls/ hr DAILY IV Last administered on 06/07/18at 08:41; Start at 09:00; Stop 06/08/18 at 09:17; Status DC Metoprolol Tartrate (Lopressor) 25 mg BID PO Last administered on 06/06/18at 10: 18; Start 06/06/18 at 09:00; Stop 06/06/18 at 11:03; Status DC Ceftriaxone Sodium (Rocephin) 1 gm Q24H IVP Last administered on 06/07/18at 10: 37; Start 06/06/18 at 09:00; Stop 06/07/18 at 10:59; Status DC Lactobacillus Rhamnosus (Culturelle) 1 cap BID PO Last administered on at 09:20; Start 06/06/18 at 09:00 Folic Acid (Folic Acid) 1 mg DAILY PO ; Start 06/11/18 at 09:00; Status Cancel Multivitamins (Thera M Plus) 1 tab DAILY PO ; Start 06/11/18 at 09:00 Metoprolol Tartrate (Lopressor) 25 mg Q8HRS PO Last administered on 06/07/18at 05:58; Start 06/06/18 at 14:00; Stop 06/07/18 at 09:10; Status DC Acetaminophen (Tylenol) 650 mg PRN Q6HRS PRN PO FEVER; Start 06/06/18 at 13:30 Ondansetron HCl (Zofran) 4 mg PRN Q6HRS PRN IV NAUSEA/VOMITING Last administered on 06/08/18at 21:45; Start 06/06/18 at 13:30 Morphine Sulfate (Morphine Sulfate) 2 mg PRN Q2HR PRN IV MODERATE TO SEVERE PAIN; Start 06/06/18 at 13:30 Tramadol HCl (Ultram) 50 mg PRN Q6HRS PRN PO MILD TO MODERATE PAIN Last administered on 06/08/18at 21:44; Start 06/06/18 at 13:30 Docusate Sodium (Colace) 100 mg PRN DAILY PRN PO CONSTIPATION; Start 06/06/18 at 13:30 Aspirin (Pawel Aspirin) 325 mg DAILYWBKFT PO ; Start 06/07/18 at 08:00; Stop at 08:00; Status DC Aspirin (Ecotrin) 81 mg DAILYWBKFT PO Last administered on 06/09/18at 09:19; Start 06/07/18 at 08:00 Apixaban (Eliquis) 5 mg BID PO Last administered on 06/09/18at 09:19; Start at 21:00 Info (Anti-Coagulation Monitoring By Pharmacy) 1 each PRN DAILY PRN MC SEE COMMENTS Last administered on 06/07/18at 12:44; Start 06/06/18 at 14:00 Potassium Chloride (Klor-Con) 40 meq 1X ONCE PO Last administered on at 08:41; Start 06/07/18 at 08:00; Stop 06/07/18 at 08:01; Status DC Metoprolol Tartrate (Lopressor) 25 mg Q6HRS PO Last administered on 06/08/18at 13:31; Start 06/07/18 at 12:00; Stop 06/08/18 at 14:41; Status DC Metoprolol Tartrate (Lopressor Vial) 5 mg 1X ONCE IVP Last administered on at 10:37; Start 06/07/18 at 10:30; Stop 06/07/18 at 10:31; Status DC Potassium Phosphate 10 mmol/ Dextrose 103.3333 ml @ 51.667 m... Q2H IV Last administered on 06/07/18at 12:50; Start 06/07/18 at 11:00; Stop 06/07/18 at 14:59 ; Status DC Amoxicillin/ Clavulanate Potassium (Augmentin 875/ 125mg) 1 tab BID PO Last administered on 06/07/18at 21:13; Start 06/07/18 at 14:00; Stop 06/08/18 at 07:39 ; Status DC Calcium Chloride 1000 mg/Dextrose 60 ml @ 120 mls/hr 1X ONCE IV ; Start at 17:45; Stop 06/07/18 at 18:14; Status UNV Calcium Chloride 1000 mg/Sodium Chloride 60 ml @ 120 mls/hr 1X ONCE IV ; Start 06/07/18 at 18:30; Stop 06/07/18 at 18:59; Status Cancel Albuterol/ Ipratropium (Duoneb) 3 ml RTQID NEB Last administered on 06/09/18at 12:07; Start 06/07/18 at 17:45 Calcium Gluconate 1000 mg/Sodium Chloride 60 ml @ 120 mls/hr 1X ONCE IV Last administered on 06/07/18at 18:02; Start 06/07/18 at 18:00; Stop 06/07/18 at 18:29 ; Status DC Ceftriaxone Sodium 1 gm/ Dextrose 50 ml @ 100 mls/hr Q24H IV ; Start 06/08/18 at 07:45; Status UNV Ceftriaxone Sodium (Rocephin) 1 gm Q24H IVP Last administered on 06/09/18at 09: 35; Start 06/08/18 at 09:00 Folic Acid (Folic Acid) 1 mg DAILY PO Last administered on 06/09/18at 09:20; Start 06/08/18 at 10:00 Thiamine Mononitrate (Vitamin B-1) 100 mg DAILY PO Last administered on at 09:19; Start 06/08/18 at 10:00 Potassium Chloride (Klor-Con) 40 meq 1X ONCE PO Last administered on at 13:30; Start 06/08/18 at 12:45; Stop 06/08/18 at 12:46; Status DC Magnesium Sulfate 50 ml @ 25 mls/hr 1X ONCE IV Last administered on 06/08/18at 13:32; Start 06/08/18 at 12:45; Stop 06/08/18 at 14:44; Status DC Furosemide (Lasix) 40 mg DAILY IVP Last administered on 06/09/18at 09:20; Start 06/09/18 at 09:00 Amlodipine Besylate (Norvasc) 10 mg DAILY PO Last administered on 06/08/18at 13: 30; Start 06/08/18 at 13:00; Stop 06/08/18 at 14:41; Status DC Diltiazem HCl (Cardizem 24hr Cd) 240 mg DAILY PO Last administered on at 09:19; Start 06/08/18 at 14:45 Metoprolol Tartrate (Lopressor Vial) 5 mg 1X ONCE IVP Last administered on at 11:22; Start 06/09/18 at 11:00; Stop 06/09/18 at 11:01; Status DC Active Scripts Active Reported Multivitamins (Multivitamin) 1 Each Tablet Unknown Dose PO DAILY Calcium (Calcium Carbonate) 500 Mg Tablet 500 Mg PO Fluoxetine Hcl 10 Mg Capsule 1 Cap PO DAILY Amlodipine Besylate 10 Mg Tablet 10 Mg PO DAILY Atenolol 50 Mg Tablet 1 Tab PO DAILY Vitals/I & O Vital Sign - Last 24 Hours 06/08/18 06/08/18 06/08/18 06/08/18 15:20 15:28 15:52 19:00 Temp 98.5 98.4 98.5 98.4 Pulse 109 109 115 Resp 26 20 B/P (MAP) 167/99 (121) 167/99 170/98 (122) Pulse Ox 90 88 94 O2 Delivery Nasal Cannula Nasal Cannula Nasal Cannula O2 Flow Rate 5.0 6.0 5.0 06/08/18 06/08/18 06/08/18 06/08/18 19:36 20:15 21:44 22:44 Temp 98.2 98.2 Pulse 86 Resp 22 18 B/P (MAP) 166/87 (113) Pulse Ox 92 92 97 O2 Delivery BiPAP/CPAP Nasal Cannula Nasal Cannula Nasal Cannula O2 Flow Rate 6.0 6.0 5.0 06/08/18 06/09/18 06/09/18 06/09/18 22:44 00:00 02:30 03:00 Temp 98.3 98.3 Pulse 130 Resp 20 20 B/P (MAP) Pulse Ox 95 92 92 98 O2 Delivery BiPAP/CPAP BiPAP/CPAP BiPAP/CPAP Nasal Cannula O2 Flow Rate 5.0 06/09/18 06/09/18 06/09/18 06/09/18 05:28 07:00 08:00 08:19 Temp 98.0 98.0 Pulse 114 Resp 19 B/P (MAP) 139/68 (91) Pulse Ox 93 89 91 O2 Delivery BiPAP/CPAP Nasal Cannula Nasal Cannula Nasal Cannula O2 Flow Rate 5.0 6.0 5.0 06/09/18 06/09/18 06/09/18 06/09/18 09:19 11:06 11:22 12:08 Temp 98.2 98.2 Pulse 114 120 120 Resp 10 B/P (MAP) 139/68 179/81 (113) 179/81 Pulse Ox 93 O2 Delivery Nasal Cannula Nasal Cannula O2 Flow Rate 5.0 5.0 Intake and Output 06/08/18 06/08/18 06/09/18 15:00 23:00 07:00 Intake Total 320 ml 1560 ml Output Total 2050 ml 1000 ml Balance 320 ml -490 ml -1000 ml HUGO JOHNSON MD Jun 09, 2018 13:42
[2018-06-09] MEDS ORDERED: POTASSIUM CHLORIDE 20 MEQ TABLET.ER. PO ONE ×2 (14:00→16:45)
--- NOTE | 2018-06-09 14:28 | RAD ---
AP chest. HISTORY: Congestive heart failure AP view was taken of the chest. There is elevation the right diaphragm. The heart is enlarged. There is a small right pleural effusion. There is mild vascular congestion. There is been a slight improvement compared to the study of one day ago. IMPRESSION: 1. Mild interval improvement. Electronically signed by: Mario Fox MD (06/09/2018 2:25 PM) [facility]
[2018-06-09 15:00] VITALS: BP 161/87
[2018-06-09] MEDS: amLODIPine BESYLATE 10 MG TABLET PO SCH (16:17)
[2018-06-09] MEDS ORDERED: MAGNESIUM SULFATE 2GM 50 ML IV ONE (16:45)
[2018-06-09 19:00] VITALS: BP 150/87
[2018-06-09 23:00] VITALS: BP 147/85
[2018-06-10 03:00] VITALS: BP 156/94
[2018-06-10 05:00] LABS: BASO % 0 % (0-3); EOS # 0.2 x10^3/uL (0.0-0.7); EOS % 3 % (0-3); HEMATOCRIT 35.8 % (36.0-47.0); HEMOGLOBIN 12.1 g/dL (12.0-15.5); LYMPH % 22 % (24-48); MEAN CORPUSCULAR HEMOGLOBIN 31 pg (25-35); MEAN CORPUSCULAR HGB CONC 34 g/dL (31-37); MEAN CORPUSCULAR VOLUME 93 fL (79-100); MONO # 0.7 x10^3/uL (0.0-1.1); MONO % 15 % (0-9); NEUT # 2.9 x10^3uL (1.8-7.7); NEUT % 59 % (31-73); PLATELET COUNT 131 x10^3/uL (140-400); RED BLOOD COUNT 3.87 x10^6/uL (3.50-5.40); RED CELL DISTRIBUTION WIDTH 17.8 % (11.5-14.5); WHITE BLOOD COUNT 4.8 x10^3/uL (4.0-11.0)
[2018-06-10 05:36] LABS: CALCIUM 9.2 mg/dL (8.5-10.1); CREATININE 0.5 mg/dL (0.6-1.0); POTASSIUM 3.8 mmol/L (3.5-5.1)
[2018-06-10 07:38] VITALS: BP 153/93
[2018-06-10] MEDS: IPRATRPIUM/ALBUTEROL 0.5/2.5MG 3 ML NEBU. NEB SCH ×4 (07:53→20:01)
[2018-06-10] MEDS: THIAMINE 100 MG TABLET. PO SCH (08:01)
[2018-06-10] MEDS: LACTOBACILLUS RHAMNOSUS GG 1 CAPSULE. PO SCH ×2 (08:01→21:28)
[2018-06-10] MEDS: APIXABAN 5 MG TABLET. PO SCH ×2 (08:02→21:28)
[2018-06-10] MEDS: ASPIRIN ENTERIC COATED 81 MG TABLET.DR. PO SCH (08:02)
[2018-06-10] MEDS: amLODIPine BESYLATE 10 MG TABLET PO SCH (08:02)
[2018-06-10] MEDS: LORazepam 1 MG TABLET PO SCH ×2 (08:02→21:28)
[2018-06-10] MEDS: FUROSEMIDE 40 MG/4 ML VIAL. IVP SCH (08:03)
[2018-06-10] MEDS: NYSTATIN TOPICAL POWDER 15GM BOTTLE. TP SCH ×2 (08:03→21:29)
[2018-06-10] MEDS: cefTRIAXone IV Push 1 GM VIAL. IVP SCH (08:04)
[2018-06-10] MEDS: FOLIC ACID 1 MG TABLET. PO SCH (08:04)
--- NOTE | 2018-06-10 09:17 | PDOC ---
PULMONARY PROGRESS NOTES Subjective NO soa Vitals Vital Signs Date Time Temp Pulse Resp B/P (MAP) Pulse Ox O2 Delivery O2 Flow Rate FiO2 06/10/18 08:02 108 153/93 06/10/18 07:55 94 Nasal Cannula 5.0 06/10/18 07:38 97.6 22 97.6 General: Alert, No acute distress Lungs: Crackles (bl mild) Cardiovascular: S1 Abdomen: Soft Neuro Exam: Alert Extremities: Other (1+edema) Labs Laboratory Tests Test 06/09/18 10:15 06/10/18 04:05 White Blood Count 6.3 x10^3/uL (4.0-11.0) 4.8 x10^3/uL (4.0-11.0) Red Blood Count 4.14 x10^6/uL (3.50-5.40) 3.87 x10^6/uL (3.50-5.40) Hemoglobin 12.8 g/dL (12.0-15.5) 12.1 g/dL (12.0-15.5) Hematocrit 38.0 % (36.0-47.0) 35.8 % (36.0-47.0) Mean Corpuscular Volume 92 fL (79-100) 93 fL (79-100) Mean Corpuscular Hemoglobin 31 pg (25-35) 31 pg (25-35) Mean Corpuscular Hemoglobin Concent 34 g/dL (31-37) 34 g/dL (31-37) Red Cell Distribution Width 17.0 % (11.5-14.5) 17.8 % (11.5-14.5) Platelet Count 132 x10^3/uL (140-400) 131 x10^3/uL (140-400) Neutrophils (%) (Auto) 69 % (31-73) 59 % (31-73) Lymphocytes (%) (Auto) 19 % (24-48) 22 % (24-48) Monocytes (%) (Auto) 10 % (0-9) 15 % (0-9) Eosinophils (%) (Auto) 2 % (0-3) 3 % (0-3) Basophils (%) (Auto) 1 % (0-3) 0 % (0-3) Neutrophils # (Auto) 4.4 x10^3uL (1.8-7.7) 2.9 x10^3uL (1.8-7.7) Lymphocytes # (Auto) 1.2 x10^3/uL (1.0-4.8) 1.0 x10^3/uL (1.0-4.8) Monocytes # (Auto) 0.6 x10^3/uL (0.0-1.1) 0.7 x10^3/uL (0.0-1.1) Eosinophils # (Auto) 0.1 x10^3/uL (0.0-0.7) 0.2 x10^3/uL (0.0-0.7) Basophils # (Auto) 0.0 x10^3/uL (0.0-0.2) 0.0 x10^3/uL (0.0-0.2) Sodium Level 139 mmol/L (136-145) 142 mmol/L (136-145) Potassium Level 3.3 mmol/L (3.5-5.1) 3.8 mmol/L (3.5-5.1) Chloride Level 99 mmol/L (98-107) 103 mmol/L (98-107) Carbon Dioxide Level 29 mmol/L (21-32) 33 mmol/L (21-32) Anion Gap 11 (6-14) 6 (6-14) Blood Urea Nitrogen 7 mg/dL (7-20) 6 mg/dL (7-20) Creatinine 0.6 mg/dL (0.6-1.0) 0.5 mg/dL (0.6-1.0) Estimated GFR (Cockcroft-Gault) 98.8 122.0 Glucose Level 217 mg/dL (70-99) 130 mg/dL (70-99) Calcium Level 9.2 mg/dL (8.5-10.1) 9.2 mg/dL (8.5-10.1) Magnesium Level 1.6 mg/dL (1.8-2.4) Laboratory Tests Test 06/09/18 10:15 06/10/18 04:05 White Blood Count 6.3 x10^3/uL (4.0-11.0) 4.8 x10^3/uL (4.0-11.0) Red Blood Count 4.14 x10^6/uL (3.50-5.40) 3.87 x10^6/uL (3.50-5.40) Hemoglobin 12.8 g/dL (12.0-15.5) 12.1 g/dL (12.0-15.5) Hematocrit 38.0 % (36.0-47.0) 35.8 % (36.0-47.0) Mean Corpuscular Volume 92 fL (79-100) 93 fL (79-100) Mean Corpuscular Hemoglobin 31 pg (25-35) 31 pg (25-35) Mean Corpuscular Hemoglobin Concent 34 g/dL (31-37) 34 g/dL (31-37) Red Cell Distribution Width 17.0 % (11.5-14.5) 17.8 % (11.5-14.5) Platelet Count 132 x10^3/uL (140-400) 131 x10^3/uL (140-400) Neutrophils (%) (Auto) 69 % (31-73) 59 % (31-73) Lymphocytes (%) (Auto) 19 % (24-48) 22 % (24-48) Monocytes (%) (Auto) 10 % (0-9) 15 % (0-9) Eosinophils (%) (Auto) 2 % (0-3) 3 % (0-3) Basophils (%) (Auto) 1 % (0-3) 0 % (0-3) Neutrophils # (Auto) 4.4 x10^3uL (1.8-7.7) 2.9 x10^3uL (1.8-7.7) Lymphocytes # (Auto) 1.2 x10^3/uL (1.0-4.8) 1.0 x10^3/uL (1.0-4.8) Monocytes # (Auto) 0.6 x10^3/uL (0.0-1.1) 0.7 x10^3/uL (0.0-1.1) Eosinophils # (Auto) 0.1 x10^3/uL (0.0-0.7) 0.2 x10^3/uL (0.0-0.7) Basophils # (Auto) 0.0 x10^3/uL (0.0-0.2) 0.0 x10^3/uL (0.0-0.2) Sodium Level 139 mmol/L (136-145) 142 mmol/L (136-145) Potassium Level 3.3 mmol/L (3.5-5.1) 3.8 mmol/L (3.5-5.1) Chloride Level 99 mmol/L (98-107) 103 mmol/L (98-107) Carbon Dioxide Level 29 mmol/L (21-32) 33 mmol/L (21-32) Anion Gap 11 (6-14) 6 (6-14) Blood Urea Nitrogen 7 mg/dL (7-20) 6 mg/dL (7-20) Creatinine 0.6 mg/dL (0.6-1.0) 0.5 mg/dL (0.6-1.0) Estimated GFR (Cockcroft-Gault) 98.8 122.0 Glucose Level 217 mg/dL (70-99) 130 mg/dL (70-99) Calcium Level 9.2 mg/dL (8.5-10.1) 9.2 mg/dL (8.5-10.1) Magnesium Level 1.6 mg/dL (1.8-2.4) Medications Active Scripts Medications Dose Route/Sig Max Daily Dose Days Date Category Multivitamins (Multivitamin) 1 Each Tablet Unknown Dose PO DAILY 06/06/18 Reported Calcium (Calcium Carbonate) 500 Mg Tablet 500 Mg PO 06/06/18 Reported Fluoxetine Hcl 10 Mg Capsule 1 Cap PO DAILY 06/06/18 Reported Amlodipine Besylate 10 Mg Tablet 10 Mg PO DAILY 06/06/18 Reported Atenolol 50 Mg Tablet 1 Tab PO DAILY 06/06/18 Reported Impression . 1. Abnormal CT chest with right upper and right lower lobe infiltrates. Cannot exclude the possibility of aspiration pneumonia due to alcohol intoxication. 2. No significant history of tobacco use. 3. Alcohol dependence with intoxication. 4. Hypomagnesemia. 5. A 4 cm left adrenal mass. 6. UTI Plan . OK TO D/C OR TRANSFER WORK UP OF ADRENAL MASS DEFER TO PCP DONTRELL CHOI MD Jun 10, 2018 09:17
--- NOTE | 2018-06-10 09:23 | PDOC ---
Infectious Disease Note Subjective Subjective No F/c/S/Rash/SOA Pt says feels ok some cough no nausea or abdo pain Eating well ROS ROS o/w neg Vital Sign Vital Signs Vital Signs Date Time Temp Pulse Resp B/P (MAP) Pulse Ox O2 Delivery O2 Flow Rate FiO2 06/10/18 08:02 108 153/93 06/10/18 07:55 94 Nasal Cannula 5.0 06/10/18 07:38 97.6 22 97.6 Physical Exam PHYSICAL EXAM GENERAL: Alert, awake, in chair and eating HEENT: Normocephalic, atraumatic. Anicteric. Poor dentition. No thrush. Oral mucosa moist. NECK: Supple. LUNGS: bl base crackles HEART: S1, S2, ABDOMEN: Soft, nontender, nondistended. Bowel sounds present. Obese catheter in place EXTREMITIES: No edema, no cyanosis, no clubbing. NEUROLOGIC: Alert and oriented x 3. Grossly nonfocal. PSYCHIATRIC: Slightly anxious, mood normal, cooperative. Labs Lab Laboratory Tests Test 06/09/18 10:15 06/10/18 04:05 White Blood Count 6.3 x10^3/uL (4.0-11.0) 4.8 x10^3/uL (4.0-11.0) Red Blood Count 4.14 x10^6/uL (3.50-5.40) 3.87 x10^6/uL (3.50-5.40) Hemoglobin 12.8 g/dL (12.0-15.5) 12.1 g/dL (12.0-15.5) Hematocrit 38.0 % (36.0-47.0) 35.8 % (36.0-47.0) Mean Corpuscular Volume 92 fL (79-100) 93 fL (79-100) Mean Corpuscular Hemoglobin 31 pg (25-35) 31 pg (25-35) Mean Corpuscular Hemoglobin Concent 34 g/dL (31-37) 34 g/dL (31-37) Red Cell Distribution Width 17.0 % (11.5-14.5) 17.8 % (11.5-14.5) Platelet Count 132 x10^3/uL (140-400) 131 x10^3/uL (140-400) Neutrophils (%) (Auto) 69 % (31-73) 59 % (31-73) Lymphocytes (%) (Auto) 19 % (24-48) 22 % (24-48) Monocytes (%) (Auto) 10 % (0-9) 15 % (0-9) Eosinophils (%) (Auto) 2 % (0-3) 3 % (0-3) Basophils (%) (Auto) 1 % (0-3) 0 % (0-3) Neutrophils # (Auto) 4.4 x10^3uL (1.8-7.7) 2.9 x10^3uL (1.8-7.7) Lymphocytes # (Auto) 1.2 x10^3/uL (1.0-4.8) 1.0 x10^3/uL (1.0-4.8) Monocytes # (Auto) 0.6 x10^3/uL (0.0-1.1) 0.7 x10^3/uL (0.0-1.1) Eosinophils # (Auto) 0.1 x10^3/uL (0.0-0.7) 0.2 x10^3/uL (0.0-0.7) Basophils # (Auto) 0.0 x10^3/uL (0.0-0.2) 0.0 x10^3/uL (0.0-0.2) Sodium Level 139 mmol/L (136-145) 142 mmol/L (136-145) Potassium Level 3.3 mmol/L (3.5-5.1) 3.8 mmol/L (3.5-5.1) Chloride Level 99 mmol/L (98-107) 103 mmol/L (98-107) Carbon Dioxide Level 29 mmol/L (21-32) 33 mmol/L (21-32) Anion Gap 11 (6-14) 6 (6-14) Blood Urea Nitrogen 7 mg/dL (7-20) 6 mg/dL (7-20) Creatinine 0.6 mg/dL (0.6-1.0) 0.5 mg/dL (0.6-1.0) Estimated GFR (Cockcroft-Gault) 98.8 122.0 Glucose Level 217 mg/dL (70-99) 130 mg/dL (70-99) Calcium Level 9.2 mg/dL (8.5-10.1) 9.2 mg/dL (8.5-10.1) Magnesium Level 1.6 mg/dL (1.8-2.4) Micro Microbiology 06/05/18 Blood Culture - Preliminary, Resulted NO GROWTH AFTER 4 DAYS 06/05/18 Urine Culture - Final, Complete 06/05/18 Urine Culture Result 1 (CHARLEY) - Final, Complete 06/05/18 Antimicrobic Susceptibility - Final, Complete Escherichia coli Greater than 100,000 colony forming units per mL Cefazolin <=4 ug/mL Cefazolin with an CHARLEY <=16 predicts susceptibility to the oral agents cefaclor, cefdinir, cefpodoxime, cefprozil, cefuroxime, cephalexin, and loracarbef when used for therapy of uncomplicated urinary tract infections due to E. coli, Klebsiella pneumoniae, and Proteus mirabilis. ANTIMICROBIAL SUSCEPTIBILITY Final Comment S = Susceptible; I = Intermediate; R = Resistant P = Positive; N = Negative MICS are expressed in micrograms per mL Antibiotic RSLT#1 RSLT#2 RSLT#3 RSLT#4 Amoxicillin/Clavulanic Acid S<=2 Ampicillin S<=2 Cefepime S<=0.12 Ceftriaxone S<=0.25 Cefuroxime S<=1 Ciprofloxacin S<=0.25 Ertapenem S<=0.12 Gentamicin S<=1 Imipenem S<=0.25 Levofloxacin S<=0.12 Meropenem S<=0.25 Nitrofurantoin S<=16 Piperacillin/Tazobactam S<=4 Tetracycline S<=1 Tobramycin S<=1 Trimethoprim/Sulfa S<=20 Performed at: [facility] Objective Assessment 1. Lactic acidosis from acute etoh 2. Acute EtOH intoxication with EtOH encephalopathy. 3. Hypokalemia, hypomagnesemia. 4. Anxiety. 5. Nausea and vomiting, resolved. 6. Liver function test elevation from EtOH. 7. Pulm infiltrates likely aspiration 8. Ecoli on Urine c/s Plan Plan of Care cont ceftriaxone today (06/06) and begin Keflex 06/11 for 5 days Maintain aspiration precautions. D/w nursing ID to sign off CIPRIANO QUINTANILLA MD Jun 10, 2018 09:23
[2018-06-10 11:01] VITALS: BP 141/94
--- NOTE | 2018-06-10 11:23 | PDOC ---
PROGRESS NOTES Chief Complaint Chief Complaint AMS, metabolic encephalopathy Acute EtOH intoxication, EtOH encephalopathy possible UTI and CAP possible sepsis lactate acidosis dehydration rapid AFIB h/o stroke wo neuroligic deficit hypomagnesemia hypokalemia obesity, BMI 39 generalized weakness left adrenal mass fu with pcp hypokalemia hypophosphatemia hypomagnesemia History of Present Illness History of Present Illness Pt seen and examined dw RN pt reports that she is feeling better, pleasant affect FEELS better, LA DROP TO 0.8 Vitals Vitals Vital Signs Date Time Temp Pulse Resp B/P (MAP) Pulse Ox O2 Delivery O2 Flow Rate FiO2 06/10/18 11:01 98.0 113 22 141/94 (110) 97 Nasal Cannula 5.0 98.0 Physical Exam Physical Exam GENERAL: Alert, awake, in chair and eating HEENT: Normocephalic, atraumatic. Anicteric. Poor dentition. No thrush. Oral mucosa moist. NECK: Supple. LUNGS: bl base crackles HEART: S1, S2, ABDOMEN: Soft, nontender, nondistended. Bowel sounds present. Obese catheter in place EXTREMITIES: No edema, no cyanosis, no clubbing. NEUROLOGIC: Alert and oriented x 3. Grossly nonfocal. PSYCHIATRIC: Slightly anxious, mood normal, cooperative. General: Alert, Cooperative, No acute distress Heart: Regular rate, Normal S1, Normal S2, Other (IRRR; tele: atrial fib) Lungs: Crackles (bl mild) Abdomen: Normal bowel sounds, Soft, No tenderness Extremities: No clubbing, No edema Skin: No rashes Labs LABS Laboratory Tests Test 06/10/18 04:05 White Blood Count 4.8 x10^3/uL (4.0-11.0) Red Blood Count 3.87 x10^6/uL (3.50-5.40) Hemoglobin 12.1 g/dL (12.0-15.5) Hematocrit 35.8 % (36.0-47.0) Mean Corpuscular Volume 93 fL (79-100) Mean Corpuscular Hemoglobin 31 pg (25-35) Mean Corpuscular Hemoglobin Concent 34 g/dL (31-37) Red Cell Distribution Width 17.8 % (11.5-14.5) Platelet Count 131 x10^3/uL (140-400) Neutrophils (%) (Auto) 59 % (31-73) Lymphocytes (%) (Auto) 22 % (24-48) Monocytes (%) (Auto) 15 % (0-9) Eosinophils (%) (Auto) 3 % (0-3) Basophils (%) (Auto) 0 % (0-3) Neutrophils # (Auto) 2.9 x10^3uL (1.8-7.7) Lymphocytes # (Auto) 1.0 x10^3/uL (1.0-4.8) Monocytes # (Auto) 0.7 x10^3/uL (0.0-1.1) Eosinophils # (Auto) 0.2 x10^3/uL (0.0-0.7) Basophils # (Auto) 0.0 x10^3/uL (0.0-0.2) Sodium Level 142 mmol/L (136-145) Potassium Level 3.8 mmol/L (3.5-5.1) Chloride Level 103 mmol/L (98-107) Carbon Dioxide Level 33 mmol/L (21-32) Anion Gap 6 (6-14) Blood Urea Nitrogen 6 mg/dL (7-20) Creatinine 0.5 mg/dL (0.6-1.0) Estimated GFR (Cockcroft-Gault) 122.0 Glucose Level 130 mg/dL (70-99) Calcium Level 9.2 mg/dL (8.5-10.1) Review of Systems Review of Systems CO weakness CO fatigue Assessment and Plan Assessmemt and Plan Problems Medical Problems: (1) Hypokalemia Status: Acute (2) Hypomagnesemia Status: Acute (3) Hypoxia Status: Acute (4) Sepsis Status: Acute (5) UTI (urinary tract infection) Status: Acute plan: IV antibiotics Cardiac monitoring Home Meds Labs w/ K, mag, catrina bipap at night dvt ppx discharge w/ input from specialist r Comment Review of Relevant I have reviewed the following items caro (where applicable) has been applied. Labs Laboratory Tests Test 06/09/18 10:15 06/10/18 04:05 White Blood Count 6.3 x10^3/uL (4.0-11.0) 4.8 x10^3/uL (4.0-11.0) Red Blood Count 4.14 x10^6/uL (3.50-5.40) 3.87 x10^6/uL (3.50-5.40) Hemoglobin 12.8 g/dL (12.0-15.5) 12.1 g/dL (12.0-15.5) Hematocrit 38.0 % (36.0-47.0) 35.8 % (36.0-47.0) Mean Corpuscular Volume 92 fL (79-100) 93 fL (79-100) Mean Corpuscular Hemoglobin 31 pg (25-35) 31 pg (25-35) Mean Corpuscular Hemoglobin Concent 34 g/dL (31-37) 34 g/dL (31-37) Red Cell Distribution Width 17.0 % (11.5-14.5) 17.8 % (11.5-14.5) Platelet Count 132 x10^3/uL (140-400) 131 x10^3/uL (140-400) Neutrophils (%) (Auto) 69 % (31-73) 59 % (31-73) Lymphocytes (%) (Auto) 19 % (24-48) 22 % (24-48) Monocytes (%) (Auto) 10 % (0-9) 15 % (0-9) Eosinophils (%) (Auto) 2 % (0-3) 3 % (0-3) Basophils (%) (Auto) 1 % (0-3) 0 % (0-3) Neutrophils # (Auto) 4.4 x10^3uL (1.8-7.7) 2.9 x10^3uL (1.8-7.7) Lymphocytes # (Auto) 1.2 x10^3/uL (1.0-4.8) 1.0 x10^3/uL (1.0-4.8) Monocytes # (Auto) 0.6 x10^3/uL (0.0-1.1) 0.7 x10^3/uL (0.0-1.1) Eosinophils # (Auto) 0.1 x10^3/uL (0.0-0.7) 0.2 x10^3/uL (0.0-0.7) Basophils # (Auto) 0.0 x10^3/uL (0.0-0.2) 0.0 x10^3/uL (0.0-0.2) Sodium Level 139 mmol/L (136-145) 142 mmol/L (136-145) Potassium Level 3.3 mmol/L (3.5-5.1) 3.8 mmol/L (3.5-5.1) Chloride Level 99 mmol/L (98-107) 103 mmol/L (98-107) Carbon Dioxide Level 29 mmol/L (21-32) 33 mmol/L (21-32) Anion Gap 11 (6-14) 6 (6-14) Blood Urea Nitrogen 7 mg/dL (7-20) 6 mg/dL (7-20) Creatinine 0.6 mg/dL (0.6-1.0) 0.5 mg/dL (0.6-1.0) Estimated GFR (Cockcroft-Gault) 98.8 122.0 Glucose Level 217 mg/dL (70-99) 130 mg/dL (70-99) Calcium Level 9.2 mg/dL (8.5-10.1) 9.2 mg/dL (8.5-10.1) Magnesium Level 1.6 mg/dL (1.8-2.4) Laboratory Tests Test 06/10/18 04:05 White Blood Count 4.8 x10^3/uL (4.0-11.0) Red Blood Count 3.87 x10^6/uL (3.50-5.40) Hemoglobin 12.1 g/dL (12.0-15.5) Hematocrit 35.8 % (36.0-47.0) Mean Corpuscular Volume 93 fL (79-100) Mean Corpuscular Hemoglobin 31 pg (25-35) Mean Corpuscular Hemoglobin Concent 34 g/dL (31-37) Red Cell Distribution Width 17.8 % (11.5-14.5) Platelet Count 131 x10^3/uL (140-400) Neutrophils (%) (Auto) 59 % (31-73) Lymphocytes (%) (Auto) 22 % (24-48) Monocytes (%) (Auto) 15 % (0-9) Eosinophils (%) (Auto) 3 % (0-3) Basophils (%) (Auto) 0 % (0-3) Neutrophils # (Auto) 2.9 x10^3uL (1.8-7.7) Lymphocytes # (Auto) 1.0 x10^3/uL (1.0-4.8) Monocytes # (Auto) 0.7 x10^3/uL (0.0-1.1) Eosinophils # (Auto) 0.2 x10^3/uL (0.0-0.7) Basophils # (Auto) 0.0 x10^3/uL (0.0-0.2) Sodium Level 142 mmol/L (136-145) Potassium Level 3.8 mmol/L (3.5-5.1) Chloride Level 103 mmol/L (98-107) Carbon Dioxide Level 33 mmol/L (21-32) Anion Gap 6 (6-14) Blood Urea Nitrogen 6 mg/dL (7-20) Creatinine 0.5 mg/dL (0.6-1.0) Estimated GFR (Cockcroft-Gault) 122.0 Glucose Level 130 mg/dL (70-99) Calcium Level 9.2 mg/dL (8.5-10.1) Microbiology 06/05/18 Blood Culture - Preliminary, Resulted NO GROWTH AFTER 4 DAYS 06/05/18 Urine Culture - Final, Complete 06/05/18 Urine Culture Result 1 (CHARLEY) - Final, Complete 06/05/18 Antimicrobic Susceptibility - Final, Complete Medications Current Medications Lorazepam (Ativan) 1 mg 1X ONCE IV Last administered on 06/05/18at 13:24; Start 06/05/18 at 13:15; Stop 06/05/18 at 13:22; Status DC Sodium Chloride 1,000 ml @ 1,000 mls/hr Q1H IV Last administered on 06/05/18at 13:23; Start 06/05/18 at 13:13; Stop 06/05/18 at 14:12; Status DC Potassium Chloride (Klor-Con) 40 meq 1X ONCE PO Last administered on at 14:49; Start 06/05/18 at 14:00; Stop 06/05/18 at 14:02; Status DC Ceftriaxone Sodium 50 ml @ 100 mls/hr 1X ONCE IV Last administered on at 14:49; Start 06/05/18 at 14:45; Stop 06/05/18 at 15:14; Status DC Magnesium Sulfate 50 ml @ 25 mls/hr 1X ONCE IV Last administered on 06/05/18at 15:37; Start 06/05/18 at 14:45; Stop 06/05/18 at 16:44; Status DC Sodium Chloride 1,000 ml @ 1,000 mls/hr 1X ONCE IV Last administered on at 15:39; Start 06/05/18 at 15:15; Stop 06/05/18 at 16:14; Status DC Ondansetron HCl (Zofran) 4 mg STK-MED ONCE .ROUTE ; Start 06/05/18 at 15:28; Stop 06/05/18 at 15:29; Status DC Ondansetron HCl (Zofran) 4 mg 1X ONCE IV Last administered on 06/05/18at 15:40 ; Start 06/05/18 at 15:45; Stop 06/05/18 at 15:46; Status DC Multivitamins 10 ml/Thiamine HCl 100 mg/Folic Acid 1 mg/Sodium Chloride 1,011.2 ml @ 1,000.088 mls/hr 1X ONCE IV Last administered on 06/05/18at 16:17; Start 06/05/18 at 16:15; Stop 06/05/18 at 17:17; Status DC Multivitamins (Thera M Plus) 1 tab DAILY PO Last administered on 06/06/18at 08: 32; Start 06/06/18 at 09:00; Stop 06/06/18 at 09:00; Status DC Folic Acid (Folic Acid) 1 mg DAILY PO Last administered on 06/06/18at 08:32; Start 06/06/18 at 09:00; Stop 06/06/18 at 09:00; Status DC Lorazepam (Ativan) 2 mg PRN Q1HR PRN IV For CIWA 8-14 Last administered on 06/09at 21:06; Start 06/05/18 at 17:15 Lorazepam (Ativan) 4 mg PRN Q1HR PRN IV For CIWA 15 or greater; Start 06/05/18 at 17:15 Lorazepam (Ativan) 1 mg BID PO Last administered on 06/10/18at 08:02; Start at 21:00 Enoxaparin Sodium (Lovenox Per Pharmacy Prophylaxis Dosing) 1 each PRN DAILY PRN MC SEE COMMENTS; Start 06/05/18 at 17:15; Stop 06/06/18 at 13:59; Status DC Potassium Chloride (Klor-Con) 40 meq 1X ONCE PO ; Start 06/05/18 at 17:15; Stop 06/05/18 at 17:17; Status DC Enoxaparin Sodium (Lovenox 40mg Syringe) 40 mg Q24H SQ Last administered on at 21:32; Start 06/05/18 at 18:00; Stop 06/06/18 at 07:44; Status DC Potassium Chloride/Water 100 ml @ 100 mls/hr Q1H IV Last administered on at 01:07; Start 06/05/18 at 21:00; Stop 06/06/18 at 00:59; Status DC Metoprolol Tartrate (Lopressor Vial) 5 mg Q6HRS IVP Last administered on at 06:10; Start 06/06/18 at 00:00; Stop 06/06/18 at 08:46; Status DC Metoprolol Tartrate (Lopressor Vial) 5 mg 1X ONCE IVP Last administered on at 21:29; Start 06/05/18 at 20:45; Stop 06/05/18 at 20:57; Status DC Nystatin (Nystop) 1 eric BID TP Last administered on 06/10/18at 08:03; Start at 21:00 Sodium Chloride 1,000 ml @ 150 mls/hr Q6H40M IV Last administered on at 06:18; Start 06/05/18 at 20:45; Stop 06/06/18 at 08:46; Status DC Enoxaparin Sodium (Lovenox 40mg Syringe) 40 mg Q12HR SQ Last administered on at 08:33; Start 06/06/18 at 09:00; Stop 06/06/18 at 13:52; Status DC Ceftriaxone Sodium 1 gm/ Dextrose 50 ml @ 100 mls/hr Q24H IV ; Start 06/06/18 at 08:45; Status UNV Magnesium Sulfate 50 ml @ 25 mls/hr 1X ONCE IV Last administered on 06/06/18at 10:22; Start 06/06/18 at 09:00; Stop 06/06/18 at 10:59; Status DC Multivitamins 10 ml/Thiamine HCl 100 mg/Folic Acid 1 mg/Sodium Chloride 1,011.2 ml @ 100 mls/ hr DAILY IV Last administered on 06/07/18at 08:41; Start at 09:00; Stop 06/08/18 at 09:17; Status DC Metoprolol Tartrate (Lopressor) 25 mg BID PO Last administered on 06/06/18at 10: 18; Start 06/06/18 at 09:00; Stop 06/06/18 at 11:03; Status DC Ceftriaxone Sodium (Rocephin) 1 gm Q24H IVP Last administered on 06/07/18at 10: 37; Start 06/06/18 at 09:00; Stop 06/07/18 at 10:59; Status DC Lactobacillus Rhamnosus (Culturelle) 1 cap BID PO Last administered on at 08:01; Start 06/06/18 at 09:00 Folic Acid (Folic Acid) 1 mg DAILY PO ; Start 06/11/18 at 09:00; Status Cancel Multivitamins (Thera M Plus) 1 tab DAILY PO ; Start 06/11/18 at 09:00 Metoprolol Tartrate (Lopressor) 25 mg Q8HRS PO Last administered on 06/07/18at 05:58; Start 06/06/18 at 14:00; Stop 06/07/18 at 09:10; Status DC Acetaminophen (Tylenol) 650 mg PRN Q6HRS PRN PO FEVER; Start 06/06/18 at 13:30 Ondansetron HCl (Zofran) 4 mg PRN Q6HRS PRN IV NAUSEA/VOMITING Last administered on 06/08/18at 21:45; Start 06/06/18 at 13:30 Morphine Sulfate (Morphine Sulfate) 2 mg PRN Q2HR PRN IV MODERATE TO SEVERE PAIN; Start 06/06/18 at 13:30 Tramadol HCl (Ultram) 50 mg PRN Q6HRS PRN PO MILD TO MODERATE PAIN Last administered on 06/08/18at 21:44; Start 06/06/18 at 13:30 Docusate Sodium (Colace) 100 mg PRN DAILY PRN PO CONSTIPATION; Start 06/06/18 at 13:30 Aspirin (Pawel Aspirin) 325 mg DAILYWBKFT PO ; Start 06/07/18 at 08:00; Stop at 08:00; Status DC Aspirin (Ecotrin) 81 mg DAILYWBKFT PO Last administered on 06/10/18at 08:02; Start 06/07/18 at 08:00 Apixaban (Eliquis) 5 mg BID PO Last administered on 06/10/18at 08:02; Start at 21:00 Info (Anti-Coagulation Monitoring By Pharmacy) 1 each PRN DAILY PRN MC SEE COMMENTS Last administered on 06/07/18at 12:44; Start 06/06/18 at 14:00 Potassium Chloride (Klor-Con) 40 meq 1X ONCE PO Last administered on at 08:41; Start 06/07/18 at 08:00; Stop 06/07/18 at 08:01; Status DC Metoprolol Tartrate (Lopressor) 25 mg Q6HRS PO Last administered on 06/08/18at 13:31; Start 06/07/18 at 12:00; Stop 06/08/18 at 14:41; Status DC Metoprolol Tartrate (Lopressor Vial) 5 mg 1X ONCE IVP Last administered on at 10:37; Start 06/07/18 at 10:30; Stop 06/07/18 at 10:31; Status DC Potassium Phosphate 10 mmol/ Dextrose 103.3333 ml @ 51.667 m... Q2H IV Last administered on 06/07/18at 12:50; Start 06/07/18 at 11:00; Stop 06/07/18 at 14:59 ; Status DC Amoxicillin/ Clavulanate Potassium (Augmentin 875/ 125mg) 1 tab BID PO Last administered on 06/07/18at 21:13; Start 06/07/18 at 14:00; Stop 06/08/18 at 07:39 ; Status DC Calcium Chloride 1000 mg/Dextrose 60 ml @ 120 mls/hr 1X ONCE IV ; Start at 17:45; Stop 06/07/18 at 18:14; Status UNV Calcium Chloride 1000 mg/Sodium Chloride 60 ml @ 120 mls/hr 1X ONCE IV ; Start 06/07/18 at 18:30; Stop 06/07/18 at 18:59; Status Cancel Albuterol/ Ipratropium (Duoneb) 3 ml RTQID NEB Last administered on 06/10/18at 07:53; Start 06/07/18 at 17:45 Calcium Gluconate 1000 mg/Sodium Chloride 60 ml @ 120 mls/hr 1X ONCE IV Last administered on 06/07/18at 18:02; Start 06/07/18 at 18:00; Stop 06/07/18 at 18:29 ; Status DC Ceftriaxone Sodium 1 gm/ Dextrose 50 ml @ 100 mls/hr Q24H IV ; Start 06/08/18 at 07:45; Status UNV Ceftriaxone Sodium (Rocephin) 1 gm Q24H IVP Last administered on 06/10/18at 08: 04; Start 06/08/18 at 09:00; Stop 06/10/18 at 09:22; Status DC Folic Acid (Folic Acid) 1 mg DAILY PO Last administered on 06/10/18at 08:04; Start 06/08/18 at 10:00 Thiamine Mononitrate (Vitamin B-1) 100 mg DAILY PO Last administered on at 08:01; Start 06/08/18 at 10:00 Potassium Chloride (Klor-Con) 40 meq 1X ONCE PO Last administered on at 13:30; Start 06/08/18 at 12:45; Stop 06/08/18 at 12:46; Status DC Magnesium Sulfate 50 ml @ 25 mls/hr 1X ONCE IV Last administered on 06/08/18at 13:32; Start 06/08/18 at 12:45; Stop 06/08/18 at 14:44; Status DC Furosemide (Lasix) 40 mg DAILY IVP Last administered on 06/10/18at 08:03; Start 06/09/18 at 09:00 Amlodipine Besylate (Norvasc) 10 mg DAILY PO Last administered on 06/08/18at 13: 30; Start 06/08/18 at 13:00; Stop 06/08/18 at 14:41; Status DC Diltiazem HCl (Cardizem 24hr Cd) 240 mg DAILY PO Last administered on at 09:19; Start 06/08/18 at 14:45; Stop 06/09/18 at 16:36; Status DC Metoprolol Tartrate (Lopressor Vial) 5 mg 1X ONCE IVP Last administered on at 11:22; Start 06/09/18 at 11:00; Stop 06/09/18 at 11:01; Status DC Amlodipine Besylate (Norvasc) 10 mg DAILY PO Last administered on 06/10/18at 08: 02; Start 06/09/18 at 14:00 Potassium Chloride (Klor-Con) 40 meq 1X ONCE PO Last administered on at 16:16; Start 06/09/18 at 14:00; Stop 06/09/18 at 14:01; Status DC Diltiazem HCl (Cardizem 24hr Cd) 360 mg DAILY PO Last administered on at 08:02; Start 06/10/18 at 09:00 Magnesium Sulfate 50 ml @ 25 mls/hr 1X ONCE IV Last administered on 06/09/18at 18:16; Start 06/09/18 at 16:45; Stop 06/09/18 at 18:44; Status DC Potassium Chloride (Klor-Con) 40 meq 1X ONCE PO Last administered on at 18:16; Start 06/09/18 at 16:45; Stop 06/09/18 at 16:46; Status DC Cephalexin HCl (Keflex) 500 mg QID PO ; Start 06/11/18 at 08:00 Active Scripts Active Reported Multivitamins (Multivitamin) 1 Each Tablet Unknown Dose PO DAILY Calcium (Calcium Carbonate) 500 Mg Tablet 500 Mg PO Fluoxetine Hcl 10 Mg Capsule 1 Cap PO DAILY Amlodipine Besylate 10 Mg Tablet 10 Mg PO DAILY Atenolol 50 Mg Tablet 1 Tab PO DAILY Vitals/I & O Vital Sign - Last 24 Hours 06/09/18 06/09/18 06/09/18 06/09/18 11:22 12:08 15:00 15:44 Temp 98.0 98.0 Pulse 120 115 Resp 17 B/P (MAP) 179/81 161/87 (111) Pulse Ox 93 O2 Delivery Nasal Cannula Nasal Cannula Nasal Cannula O2 Flow Rate 5.0 5.0 5.0 06/09/18 06/09/18 06/09/18 06/09/18 16:17 19:00 19:19 20:00 Temp 98.2 98.2 Pulse 120 117 Resp 24 B/P (MAP) 179/81 150/87 (108) Pulse Ox 91 95 O2 Delivery Nasal Cannula Nasal Cannula Nasal Cannula O2 Flow Rate 5.0 5.0 6.0 06/09/18 06/09/18 06/09/18 06/10/18 22:30 23:00 23:57 03:00 Temp 98.2 98.4 98.2 98.4 Pulse 118 122 Resp 20 24 B/P (MAP) 147/85 (105) 156/94 (114) Pulse Ox 92 99 95 94 O2 Delivery BiPAP/CPAP BiPAP/CPAP BiPAP/CPAP Nasal Cannula O2 Flow Rate 5.0 06/10/18 06/10/18 06/10/18 06/10/18 07:30 07:38 07:55 08:02 Temp 97.6 97.6 Pulse 108 108 Resp 22 B/P (MAP) 153/93 (113) 153/93 Pulse Ox 92 94 O2 Delivery Nasal Cannula Nasal Cannula Nasal Cannula O2 Flow Rate 5.0 5.0 5.0 06/10/18 06/10/18 08:02 11:01 Temp 98.0 98.0 Pulse 108 113 Resp 22 B/P (MAP) 153/93 141/94 (110) Pulse Ox 97 O2 Delivery Nasal Cannula O2 Flow Rate 5.0 Intake and Output 06/09/18 06/09/18 06/10/18 15:00 23:00 07:00 Intake Total 220 ml 0 ml Output Total 2000 ml 1550 ml Balance -1780 ml -1550 ml LISA ROBISON III DO Jun 10, 2018 11:23
--- NOTE | 2018-06-10 11:24 | PDOC ---
PROGRESS NOTES Subjective Subjective Feeling better today. Objective Objective Vital Signs Date Time Temp Pulse Resp B/P (MAP) Pulse Ox O2 Delivery O2 Flow Rate FiO2 06/10/18 11:01 98.0 113 22 141/94 (110) 97 Nasal Cannula 5.0 98.0 Intake and Output 06/10/18 07:00 Intake Total 220 ml Output Total 3550 ml Balance -3330 ml Intake Oral 220 ml Output Urine Total 3550 ml Physical Exam Abdomen: Normal bowel sounds, Soft, No tenderness Heart: Other (IRRR; tele: atrial fib) Extremities: No edema General: Alert, Cooperative, No acute distress HEENT: Atraumatic Lungs: Clear to auscultation Neuro: Normal speech Psych/Mental Status: Mental status NL, Mood NL Skin: No rashes Assessment Assessment 1. Atrial fibrillation with RVR; --new onset;, heart rate continues to be elevated despite maximum dose of Cardizem. Start digoxin for better rate control. --K and Mg replaced --TTE with preserved LVEF and mild aortic and mitral stenosis --Continue eliquis for stroke prophylaxis 2. sepsis with UTI --defer to ID 3. ETOH intoxication with encephalopathy: improved 4. HTN --Blood pressure better controlled Plan Plan of Care Problems Medical Problems: (1) Hypokalemia Status: Acute (2) Hypomagnesemia Status: Acute (3) Hypoxia Status: Acute (4) Sepsis Status: Acute (5) UTI (urinary tract infection) Status: Acute Comment Review of Relevant I have reviewed the following items caro (where applicable) has been applied. Labs Laboratory Tests Test 06/10/18 04:05 White Blood Count 4.8 x10^3/uL (4.0-11.0) Red Blood Count 3.87 x10^6/uL (3.50-5.40) Hemoglobin 12.1 g/dL (12.0-15.5) Hematocrit 35.8 % (36.0-47.0) Mean Corpuscular Volume 93 fL (79-100) Mean Corpuscular Hemoglobin 31 pg (25-35) Mean Corpuscular Hemoglobin Concent 34 g/dL (31-37) Red Cell Distribution Width 17.8 % (11.5-14.5) Platelet Count 131 x10^3/uL (140-400) Neutrophils (%) (Auto) 59 % (31-73) Lymphocytes (%) (Auto) 22 % (24-48) Monocytes (%) (Auto) 15 % (0-9) Eosinophils (%) (Auto) 3 % (0-3) Basophils (%) (Auto) 0 % (0-3) Neutrophils # (Auto) 2.9 x10^3uL (1.8-7.7) Lymphocytes # (Auto) 1.0 x10^3/uL (1.0-4.8) Monocytes # (Auto) 0.7 x10^3/uL (0.0-1.1) Eosinophils # (Auto) 0.2 x10^3/uL (0.0-0.7) Basophils # (Auto) 0.0 x10^3/uL (0.0-0.2) Sodium Level 142 mmol/L (136-145) Potassium Level 3.8 mmol/L (3.5-5.1) Chloride Level 103 mmol/L (98-107) Carbon Dioxide Level 33 mmol/L (21-32) Anion Gap 6 (6-14) Blood Urea Nitrogen 6 mg/dL (7-20) Creatinine 0.5 mg/dL (0.6-1.0) Estimated GFR (Cockcroft-Gault) 122.0 Glucose Level 130 mg/dL (70-99) Calcium Level 9.2 mg/dL (8.5-10.1) Microbiology 06/05/18 Blood Culture - Preliminary, Resulted NO GROWTH AFTER 4 DAYS 06/05/18 Urine Culture - Final, Complete 06/05/18 Urine Culture Result 1 (CHARLEY) - Final, Complete 06/05/18 Antimicrobic Susceptibility - Final, Complete Medications Current Medications Amlodipine Besylate (Norvasc) 10 mg DAILY PO Last administered on 06/10/18at 08: 02; Start 06/09/18 at 14:00 Cephalexin HCl (Keflex) 500 mg QID PO ; Start 06/11/18 at 08:00 Diltiazem HCl (Cardizem 24hr Cd) 360 mg DAILY PO Last administered on at 08:02; Start 06/10/18 at 09:00 Folic Acid (Folic Acid) 1 mg DAILY PO ; Start 06/11/18 at 09:00; Status Cancel Magnesium Sulfate 50 ml @ 25 mls/hr 1X ONCE IV Last administered on 06/09/18at 18:16; Start 06/09/18 at 16:45; Stop 06/09/18 at 18:44; Status DC Multivitamins (Thera M Plus) 1 tab DAILY PO ; Start 06/11/18 at 09:00 Potassium Chloride (Klor-Con) 40 meq 1X ONCE PO Last administered on at 16:16; Start 06/09/18 at 14:00; Stop 06/09/18 at 14:01; Status DC Potassium Chloride (Klor-Con) 40 meq 1X ONCE PO Last administered on at 18:16; Start 06/09/18 at 16:45; Stop 06/09/18 at 16:46; Status DC Vitals/I & O Vital Sign - Last 24 Hours 06/09/18 06/09/18 06/09/18 06/09/18 11:22 12:08 15:00 15:44 Temp 98.0 98.0 Pulse 120 115 Resp 17 B/P (MAP) 179/81 161/87 (111) Pulse Ox 93 O2 Delivery Nasal Cannula Nasal Cannula Nasal Cannula O2 Flow Rate 5.0 5.0 5.0 06/09/18 06/09/18 06/09/18 06/09/18 16:17 19:00 19:19 20:00 Temp 98.2 98.2 Pulse 120 117 Resp 24 B/P (MAP) 179/81 150/87 (108) Pulse Ox 91 95 O2 Delivery Nasal Cannula Nasal Cannula Nasal Cannula O2 Flow Rate 5.0 5.0 6.0 06/09/18 06/09/18 06/09/18 06/10/18 22:30 23:00 23:57 03:00 Temp 98.2 98.4 98.2 98.4 Pulse 118 122 Resp 20 24 B/P (MAP) 147/85 (105) 156/94 (114) Pulse Ox 92 99 95 94 O2 Delivery BiPAP/CPAP BiPAP/CPAP BiPAP/CPAP Nasal Cannula O2 Flow Rate 5.0 06/10/18 06/10/18 06/10/18 06/10/18 07:30 07:38 07:55 08:02 Temp 97.6 97.6 Pulse 108 108 Resp 22 B/P (MAP) 153/93 (113) 153/93 Pulse Ox 92 94 O2 Delivery Nasal Cannula Nasal Cannula Nasal Cannula O2 Flow Rate 5.0 5.0 5.0 06/10/18 06/10/18 08:02 11:01 Temp 98.0 98.0 Pulse 108 113 Resp 22 B/P (MAP) 153/93 141/94 (110) Pulse Ox 97 O2 Delivery Nasal Cannula O2 Flow Rate 5.0 Intake and Output 06/09/18 06/09/18 06/10/18 15:00 23:00 07:00 Intake Total 220 ml 0 ml Output Total 2000 ml 1550 ml Balance -1780 ml -1550 ml EVI MENG MD Jun 10, 2018 11:24
[2018-06-10] MEDS ORDERED: DIGOXIN IV 500 MCG/2 ML AMPUL. IV ONE (12:45)
[2018-06-10 15:11] VITALS: BP 134/75
[2018-06-10] MEDS: DIGOXIN 125 MCG TABLET. PO SCH (18:25)
[2018-06-10 19:18] VITALS: BP 144/82
[2018-06-10 23:48] VITALS: BP 111/78
[2018-06-11 03:44] VITALS: BP 155/84
[2018-06-11 07:30] VITALS: BP 120/78
[2018-06-11] MEDS: IPRATRPIUM/ALBUTEROL 0.5/2.5MG 3 ML NEBU. NEB SCH ×2 (08:00→12:05)
[2018-06-11] MEDS: APIXABAN 5 MG TABLET. PO SCH (08:36)
[2018-06-11] MEDS: ASPIRIN ENTERIC COATED 81 MG TABLET.DR. PO SCH (08:36)
[2018-06-11] MEDS: LORazepam 1 MG TABLET PO SCH (08:36)
[2018-06-11] MEDS: FOLIC ACID 1 MG TABLET. PO SCH (08:37)
[2018-06-11] MEDS: CEPHALEXIN 250 MG CAPSULE. PO SCH ×3 (08:37→13:25)
[2018-06-11] MEDS: THIAMINE 100 MG TABLET. PO SCH (08:37)
[2018-06-11] MEDS: amLODIPine BESYLATE 10 MG TABLET PO SCH (08:37)
[2018-06-11] MEDS: DIGOXIN 125 MCG TABLET. PO SCH (08:37)
[2018-06-11] MEDS: LACTOBACILLUS RHAMNOSUS GG 1 CAPSULE. PO SCH (08:37)
[2018-06-11] MEDS: FUROSEMIDE 40 MG/4 ML VIAL. IVP SCH (08:37)
[2018-06-11] MEDS: NYSTATIN TOPICAL POWDER 15GM BOTTLE. TP SCH (08:38)
[2018-06-11] MEDS ORDERED: FOLIC ACID 1 MG TABLET. PO SCH (09:00)
[2018-06-11] MEDS ORDERED: MULTIVITAMIN with MINERAL TABLET. PO SCH (09:00)
--- NOTE | 2018-06-11 09:04 | PDOC ---
PULMONARY PROGRESS NOTES Subjective NO soa Vitals Vital Signs Date Time Temp Pulse Resp B/P (MAP) Pulse Ox O2 Delivery O2 Flow Rate FiO2 06/11/18 08:37 118 120/78 06/11/18 08:24 93 Nasal Cannula 3.0 06/11/18 07:30 97.7 26 97.7 General: Alert, No acute distress Lungs: Crackles (bl mild) Cardiovascular: S1 Abdomen: Soft Neuro Exam: Alert Extremities: Other (1+edema) Labs Laboratory Tests Test 06/09/18 10:15 06/10/18 04:05 White Blood Count 6.3 x10^3/uL (4.0-11.0) 4.8 x10^3/uL (4.0-11.0) Red Blood Count 4.14 x10^6/uL (3.50-5.40) 3.87 x10^6/uL (3.50-5.40) Hemoglobin 12.8 g/dL (12.0-15.5) 12.1 g/dL (12.0-15.5) Hematocrit 38.0 % (36.0-47.0) 35.8 % (36.0-47.0) Mean Corpuscular Volume 92 fL (79-100) 93 fL (79-100) Mean Corpuscular Hemoglobin 31 pg (25-35) 31 pg (25-35) Mean Corpuscular Hemoglobin Concent 34 g/dL (31-37) 34 g/dL (31-37) Red Cell Distribution Width 17.0 % (11.5-14.5) 17.8 % (11.5-14.5) Platelet Count 132 x10^3/uL (140-400) 131 x10^3/uL (140-400) Neutrophils (%) (Auto) 69 % (31-73) 59 % (31-73) Lymphocytes (%) (Auto) 19 % (24-48) 22 % (24-48) Monocytes (%) (Auto) 10 % (0-9) 15 % (0-9) Eosinophils (%) (Auto) 2 % (0-3) 3 % (0-3) Basophils (%) (Auto) 1 % (0-3) 0 % (0-3) Neutrophils # (Auto) 4.4 x10^3uL (1.8-7.7) 2.9 x10^3uL (1.8-7.7) Lymphocytes # (Auto) 1.2 x10^3/uL (1.0-4.8) 1.0 x10^3/uL (1.0-4.8) Monocytes # (Auto) 0.6 x10^3/uL (0.0-1.1) 0.7 x10^3/uL (0.0-1.1) Eosinophils # (Auto) 0.1 x10^3/uL (0.0-0.7) 0.2 x10^3/uL (0.0-0.7) Basophils # (Auto) 0.0 x10^3/uL (0.0-0.2) 0.0 x10^3/uL (0.0-0.2) Sodium Level 139 mmol/L (136-145) 142 mmol/L (136-145) Potassium Level 3.3 mmol/L (3.5-5.1) 3.8 mmol/L (3.5-5.1) Chloride Level 99 mmol/L (98-107) 103 mmol/L (98-107) Carbon Dioxide Level 29 mmol/L (21-32) 33 mmol/L (21-32) Anion Gap 11 (6-14) 6 (6-14) Blood Urea Nitrogen 7 mg/dL (7-20) 6 mg/dL (7-20) Creatinine 0.6 mg/dL (0.6-1.0) 0.5 mg/dL (0.6-1.0) Estimated GFR (Cockcroft-Gault) 98.8 122.0 Glucose Level 217 mg/dL (70-99) 130 mg/dL (70-99) Calcium Level 9.2 mg/dL (8.5-10.1) 9.2 mg/dL (8.5-10.1) Magnesium Level 1.6 mg/dL (1.8-2.4) Medications Active Scripts Medications Dose Route/Sig Max Daily Dose Days Date Category Multivitamins (Multivitamin) 1 Each Tablet Unknown Dose PO DAILY 06/06/18 Reported Calcium (Calcium Carbonate) 500 Mg Tablet 500 Mg PO 06/06/18 Reported Fluoxetine Hcl 10 Mg Capsule 1 Cap PO DAILY 9/20/18 Reported Amlodipine Besylate 10 Mg Tablet 10 Mg PO DAILY 06/06/18 Reported Atenolol 50 Mg Tablet 1 Tab PO DAILY 06/06/18 Reported Impression . 1. Abnormal CT chest with right upper and right lower lobe infiltrates. Cannot exclude the possibility of aspiration pneumonia due to alcohol intoxication. 2. No significant history of tobacco use. 3. Alcohol dependence with intoxication. 4. Hypomagnesemia. 5. A 4 cm left adrenal mass. 6. UTI Plan . RESP STATUS IS COMPENSATED OK TO D/C OR TRANSFER WORK UP OF ADRENAL MASS DEFER TO PCP DONTRELL CHOI MD Jun 11, 2018 09:04
--- NOTE | 2018-06-11 10:54 | PDOC ---
FLAKITA NOLEN DIGITAL ACCOUNT MANAGER 06/11/18 1054: CARDIO Progress Notes Date and Time Date of Service 06/11/2018 Time of Evaluation 1034 Subjective Subjective: No Chest Pain, No shortness of breath, No Palpitations, No Dizziness, Other (worried about urinary incontinence) Vitals Vitals Vital Signs Date Time Temp Pulse Resp B/P (MAP) Pulse Ox O2 Delivery O2 Flow Rate FiO2 06/11/18 08:37 118 120/78 06/11/18 08:24 93 Nasal Cannula 3.0 06/11/18 07:30 97.7 26 97.7 Weight Weight [ ] Input and Output Intake and Output Intake and Output 06/11/18 07:00 Intake Total 640 ml Output Total 2350 ml Balance -1710 ml Intake Oral 640 ml Output Urine Total 2350 ml Microbiology Micro Microbiology 06/05/18 Blood Culture - Final, Complete NO GROWTH AFTER 5 DAYS 06/05/18 Urine Culture - Final, Complete 06/05/18 Urine Culture Result 1 (CHARLEY) - Final, Complete 06/05/18 Antimicrobic Susceptibility - Final, Complete Physical Exam HEENT: Neck Supple W Full Motion Chest: Symmetric LUNGS: Clear to Auscultation Heart: S1S2, irregularly irregular, other (tele: atrial fib) Abdomen: Soft N/T, Other (obese abdomen) Extremities: No Edema Neurology: alert, follow commands Assessment Assessment 1. Atrial fibrillation with RVR; --new onset;, heart rate continues to be elevated despite maximum dose of Cardizem. Heart rate continues to be elevated; will give extra 0.125 mg IV; check dig level on Sunday --TTE with preserved LVEF and mild aortic and mitral stenosis --Continue eliquis for stroke prophylaxis 2. sepsis with UTI --defer to ID 3. ETOH intoxication with encephalopathy: improved 4. HTN --Blood pressure better controlled agreeable with transfer to SNU; f/u in cardiology office in 4 weeks EVI MENG MD 06/11/18 1441: CARDIO Progress Notes Assessment Assessment Patient seen and examined. Agree with MOOSE HUNTER's assessment and plan. Atrial fibrillation rate better but continues to be slightly elevated Agree with extra dose of digoxin today. Continue Cardizem. If heart rate continues to be elevated, we will initiate beta blockers in addition to calcium channel blockers FLAKITA NOLEN DIGITAL ACCOUNT MANAGER Jun 11, 2018 10:54 EVI MENG MD Jun 11, 2018 14:41
[2018-06-11 11:00] VITALS: BP 141/86
[2018-06-11] MEDS ORDERED: DIGOXIN IV 500 MCG/2 ML AMPUL. IV ONE (11:00)
[2018-06-11] MEDS ORDERED: ASPI-612 PO (13:37)
[2018-06-11] MEDS ORDERED: LACT1CAP19 PO (13:37)
[2018-06-11] MEDS ORDERED: CEPH250C PO (13:37)
[2018-06-11] MEDS ORDERED: NYST60PO TP (13:37)
[2018-06-11] MEDS ORDERED: DILT180C29 PO (13:37)
[2018-06-11] MEDS ORDERED: DIGO125T PO (13:37)
[2018-06-11] MEDS ORDERED: APIX5TAB PO (13:37)
--- NOTE | 2018-06-11 13:39 | PDOC3 ---
Discharge Summary [facility] Date of Admission: Jun 07, 2018 Discharge Date: Jun 11, 2018 Admitting Diagnosis uti Final Diagnosis Problems Medical Problems: (1) Hypokalemia Status: Acute (2) Hypomagnesemia Status: Acute (3) Hypoxia Status: Acute (4) Sepsis Status: Acute (5) UTI (urinary tract infection) Status: Acute Brief Hospital Course Ms. Cohen is a 68 old F with hx of HTn and chronic venous stasis who presents with a uti. the patient was started on antibioitcs and due to her weakness eventually it was recommended her to transfered toa sNF. the patietn is agreement to this plan. the patient denies any other significant concerns, and is stable for discharge. NAD A&ox3 mmm neck w/o nodes s1 s2 rrr no murmurs ctab soft nttp +bs no c/c/e strength and sensation grossly intact CONDITION AT DISCHARGE: Stable Scheduled Amlodipine Besylate (Amlodipine Besylate), 10 MG PO DAILY, (Reported) Apixaban (Eliquis), 5 MG PO BID Aspirin (Aspirin Ec), 81 MG PO DAILYWBKFT Cephalexin (Cephalexin), 500 MG PO QID Digoxin (Digoxin), 125 MCG PO DAILY Diltiazem Hcl (Diltiazem 24HR Cd), 360 MG PO DAILY Fluoxetine Hcl (Fluoxetine Hcl), 1 CAP PO DAILY, (Reported) Lactobacillus Rhamnosus Gg (Culturelle), 1 CAP PO BID Multivitamin (Multivitamins), Unknown Dose PO DAILY, (Reported) Nystatin (Nystop), 1 ROXANNE TP BID Miscellaneous Medications Calcium Carbonate (Calcium), 500 MG PO, (Reported) Discontinued Medications Atenolol (Atenolol), 1 TAB PO DAILY, (Reported) CLINT VILLAR MD Jun 11, 2018 13:39
[2018-06-11] MEDS: ANTI-COAG MONITOR BY PHARMACY. MC PRN (14:33)
== END 2018-06-11 16:40 | DRG 871 ==
LOC: ER 12:51 → 2 NORTH 15:30 → 1 WEST ICU 18:07 → 2 SOUTH 06-06 17:30
PROVIDERS: ADMIT Internal Medicine; ATTEND Internal Medicine
PROC: 5A09357 Assistance with Respiratory Ventilation, Less than 24 Consecutive Hours, Continuous Positive Airway Pressure (ICD-10-PCS; principal; 2018-06-07)
DX: A41.9 Sepsis, unspecified organism (principal); G93.41 Metabolic encephalopathy; N39.0 Urinary tract infection, site not specified; F41.9 Anxiety disorder, unspecified; R65.20 Severe sepsis without septic shock; E87.6 Hypokalemia; E66.9 Obesity, unspecified; I87.8 Other specified disorders of veins; I45.10 Unspecified right bundle-branch block; I08.0 Rheumatic disorders of both mitral and aortic valves; E86.0 Dehydration; E83.39 Other disorders of phosphorus metabolism; E83.42 Hypomagnesemia; R79.89 Other specified abnormal findings of blood chemistry; R09.02 Hypoxemia; E27.9 Disorder of adrenal gland, unspecified; K21.9 Gastro-esophageal reflux disease without esophagitis; M19.041 Primary osteoarthritis, right hand; M19.042 Primary osteoarthritis, left hand; F10.229 Alcohol dependence with intoxication, unspecified; R91.8 Other nonspecific abnormal finding of lung field; I10 Essential (primary) hypertension; I48.91 Unspecified atrial fibrillation; Z68.39 Body mass index [BMI] 39.0-39.9, adult; Z71.41 Alcohol abuse counseling and surveillance of alcoholic; Z86.73 Personal history of transient ischemic attack (TIA), and cerebral infarction without residual deficits; Z87.891 Personal history of nicotine dependence
CPT/HCPCS: 36415; 36600; 71045; 71250; 80048; 80053; 80061; 81001; 82553; 82805; 83605; 83690; 83735; 83880; 84100; 84443; 84484; 85025; 85610; 87040; 87086; 87186; 87641; 93005; 93306; 94640; 94660; 94760; 96361; 96365; 96366; 96367; 96368; 96375; G0480; J0610; J0690; J0696; J1160; J1650; J1940; J2060; J2405; J3475; J3480; J3490; J7030; J7620; 97110; 97116; 97530; 99285-25